=== PATIENT | female | born 1950 | race Caucasian/White ===

== ENCOUNTER 2021-03-15 09:29 | Outpatient (CLI) | payer MEDICARE, SELFPAY ==
--- NOTE | ~2021-03-15 | XR_ITS ---
EXAMINATION: XR knee LT min 4V DATE: 03/15/2021 09:53 INDICATION: Chronic left knee pain TECHNIQUE: Four views of the left knee were obtained. COMPARISON: None. FINDINGS: Alignment is normal. No fracture or osteochondral lesion. There is tricompartmental osteoar thritis, severe in the medial and patellofemoral compartments and moderate at the lateral compartment . No joint effusion/synovitis. Soft tissues are unremarkable. IMPRESSION: 1. Tricompartmental osteoarthritis. Reviewed, dictated and finalized at location A.
== END 2021-03-15 09:30 | disposition home or self-care (01) ==
PROVIDERS: PCP Physician Assistant; Visit Provider Orthopaedic Surgery
DX: M25.562 Pain in left knee (principal)
CPT/HCPCS: 73564

== ENCOUNTER 2021-04-11 13:44 | Emergency (ER) | payer MEDICARE, SELFPAY ==
--- NOTE | ~2021-04-11 | XR_ITS ---
XR knee LT 3V DATE: 04/11/2021 17:19 INDICATION: Fall. Left knee pain. TECHNIQUE: Crosstable lateral, AP and PA views COMPARISON: 03/15/2021 left knee FINDINGS: No fracture or dislocation or joint effusion is evident. There is prominent periarticular spurring at the patellofemoral and medial compartments and to a less er extent the lateral compartment. There is prominent joint space narrowing at the medial compartment . No radiopaque intra-articular loose body or chondrocalcinosis. Diffuse osteopenia. IMPRESSION: Tricompartment osteoarthritis, most pronounced at the medial and patellofemoral compartme nts Osteopenia No fracture or dislocation or joint effusion is evident Reviewed, dictated and finalized at location A. IMPRESSION: Tricompartment osteoarthritis, most pronounced at the medial and pa tellofemoral compartments Osteopenia No fracture or dislocation or joint effusion is evident
--- NOTE | ~2021-04-11 | XR_ITS ---
XR ribs RT 2V w CXR 2V DATE: 04/11/2021 17:18 INDICATION: Fall. Right lower rib pain. Chronic shortness of breath. TECHNIQUE: PA and lateral chest. 3 views of the right ribs. COMPARISON: November 14, 2016 two-view chest FINDINGS: Normal heart size. No hilar or mediastinal enlargement. No pulmonary infiltrate or consolid ation, pleural effusion or pulmonary vascular congestion or pneumothorax. Diffuse osteopenia. There is diffuse idiopathic skeletal hyperostosis of the thoracic spine. No right rib fracture or bone destruction is evident. Status post cholecystectomy. IMPRESSION: Diffuse osteopenia No right rib fracture is detected No active cardiopulmonary disease Reviewed, dictated and finalized at location A.
--- NOTE | ~2021-04-11 | CT_ITS ---
EXAMINATION: CT brain wo con DATE: 04/11/2021 14:03 INDICATION: Fall. Head injury. Right supraorbital hematoma TECHNIQUE: Computed tomography (CT) of the head was performed without intravenous contrast. The mA wa s adjusted according to patient size. Iterative reconstruction technique was employed. Exam dose: 68 1.00 mGy-cm total exam DLP. COMPARISON: None FINDINGS: Right supraorbital hematoma and high posterior right parietal cephalohematoma. No skull fra cture is detected. No intracranial mass lesion or hemorrhage or cerebrovascular accident is evident. No midline shift or mass effect effect. Normal ventricular size. No subdural or epidural hematoma is evident. No intracranial coup or contrecoup injury is identified. The orbits are unremarkable. The paranasal sinuses and mastoid air cells are normally developed and aerated. IMPRESSION: Right supraorbital and high right posterior parietal cephalohematoma; no skull fracture or acute intracranial finding Reviewed, dictated and finalized at Location A. Reviewed, dictated and finalized at location A. IMPRESSION: Right supraorbital and high right posterior parietal cephalohemato ma; no skull fracture or acute intracranial finding
[2021-04-11 13:49] VITALS: BP 181/92; PULSE 55; RESP 18; TEMP 36.8; O2SAT 95
[2021-04-11 14:58] VITALS: BP 182/90; PULSE 56; RESP 18; O2SAT 95
[2021-04-11 15:06] VITALS: BP 140/72; PULSE 54; RESP 18; O2SAT 95
[2021-04-11 16:27] VITALS: BP 158/88; PULSE 60; RESP 18; O2SAT 96
--- NOTE | 2021-04-11 16:48 | ED.FALL ---
HPI - Fall General Chief Complaint: Fall Stated Complaint: fall, head injury Time Seen by Provider: 04/11/21 15:02 Source: patient Mode of arrival: ambulatory Limitations: clinical condition History of Present Illness HPI Narrative: Patient is a 71 year old female who presents after fall. Patient reports drug by dog and fell hitting head on door and then concrete. Patient has hematoma to right eye and tenderness to posterior scalp. Patient reports headache. Denies visual changes. Patient also reports left knee pain and right rib pain. Patient is on anticoagulants. She denies taking otc medication for pain prior to arrival in the ED. She denies LOC and all other complaints at this time. complaint: fall Related Data Home Medications Medication Instructions Recorded Confirmed apixaban [Eliquis] mg 04/11/21 bupropion HCl mg PO 04/11/21 diltiazem HCl [DILT-XR] PO 04/11/21 dronedarone [Multaq] mg 04/11/21 escitalopram oxalate mg 04/11/21 ezetimibe mg 04/11/21 fluticasone furoate-vilanterol INHALATION 04/11/21 04/11/21 [Breo Ellipta] fluticasone propionate INTRANASAL 04/11/21 furosemide 04/11/21 gabapentin 04/11/21 linaclotide [Linzess] mcg 04/11/21 losartan 04/11/21 metoprolol tartrate 04/11/21 montelukast mg 04/11/21 omeprazole 04/11/21 ropinirole mg 04/11/21 rosuvastatin mg 04/11/21 04/11/21 Allergies Allergy/AdvReac Type Severity Reaction Status Date / Time amoxicillin Allergy Unknown Unknown Verified 04/11/21 15:00 Penicillins Allergy Unknown UNSURE Verified 04/11/21 15:00 Review of Systems Review of Systems: Narrative: CONSTITUTIONAL: Denies fever, chills, or sweats. EYES: Denies visual changes, redness, or discharge. ENT: Denies rhinorrhea, congestion, sore throat, or otalgia. CARDIOVASCULAR: Denies chest pain, palpitations, or edema. RESPIRATORY: Denies cough or dyspnea. GASTROINTESTINAL: Denies abdominal pain, nausea, vomiting, or diarrhea. GENITOURINARY: Denies dysuria or hematuria. SKIN: Denies rash or itching. MUSCULOSKELETAL: Reports right rib pain, left knee pain NEUROLOGIC: Reports headache, denies numbness, dizziness, or weakness. PSYCHIATRIC: Denies anxiety or depression. [facility] Past Medical History Medical History Abnormality of heart beat Afib Anxiety Arthritis Asthma Cellulitis Chest tightness Congestion of upper airway Coughing Diarrhea GERD (gastroesophageal reflux disease) High cholesterol History of adverse reaction to anesthesia History of hiatal hernia Hypertension Nausea PURVI (obstructive sleep apnea) SOB (shortness of breath) Weight gain Surgical History Surgical History History of appendectomy History of cholecystectomy History of elbow surgery History of hysterectomy History of right ankle joint replacement Family History Family History (Updated 03/16/21 @ 10:09 by Phyllis Travis, RT(R)) Mother Hypertension Family history of hypothyroidism Family history of diabetes mellitus in first degree relative Family history of atrial fibrillation Father Family history of peptic ulcer Family history of coronary artery disease Other Carcinoma of colon Cerebrovascular accident Diabetes mellitus Heart disease High cholesterol Social History Social History (Updated 03/16/21 @ 10:10 by Phyllis Travis, RT(R)) Smoking status: Never smoker Second hand tobacco smoke exposure: No Alcohol intake: current Alcohol use details: 4 per year Substance use: never Substance use type: does not use Gender identity (if verbalized by the patient): Female Exam Narrative: Exam Narrative: GENERAL: Well-appearing, well-nourished, and in no acute distress. HEAD: Normocephalic, atraumatic. EYES: EOMI. No redness or drainage. Conjunctiva are normal. Patient has hematoma to right orbital area, small abrasion noted, hemato
[2021-04-11 18:00] VITALS: BP 165/77; PULSE 64; RESP 16; O2SAT 96
== END 2021-04-11 18:01 | disposition home or self-care (01) ==
PROVIDERS: Emergency Provider Nurse Practitioner; PCP Physician Assistant
DX: M25.561 Pain in right knee (principal); R07.81 Pleurodynia; I10 Essential (primary) hypertension; I48.91 Unspecified atrial fibrillation; Z79.01 Long term (current) use of anticoagulants; W18.39XA Other fall on same level, initial encounter
CPT/HCPCS: 70450; 71046; 71100; 73562; 99284

== ENCOUNTER 2021-04-26 15:00 | Outpatient (RCR) | payer MEDICARE, SELFPAY ==
--- NOTE | 2021-04-26 15:50 | PTOPEVAL ---
Thank you for referring Robyn Carcamo to [facility].? The patient is scheduled to be seen for therapy? __2__x/week for 10 visits. Please review, sign, date and return this plan of care BRETT. I agree with and certify that the following plan of care is medically necessary. Referring Physician Date Admitting Provider: Attending Provider: Marta Mayer, PA Referring Provider: *PT Outpatient Evaluation Start: 04/26/21 15:02 Freq: Status: Active Protocol: Document 04/26/21 15:02 [facility] (Rec: 04/26/21 15:49 [facility] [email or web address]) Therapy Assessment Status Assessment Status Assessment Status Evaluation Evaluation Information Problem Diagnosis strain of left knee after fall Onset 04/11/21 Subjective Information Pt. reports that she was Query Text:As Reported By Patient/ walking her dog, when the dog Family suddenly tugged the leash causing her to fall into the doorframe. She reports that she went to the ER and returned home that day. Pt. reports she underwent xray which revealed the left knee is bone on bone. She reports that she cannot stand for long periods and first couple steps after sitting are very painful. She reports that her knee pain makes sleep very difficult. She recalls only falling one time in the past 6 months. She states that her goal is to be able to walk with less pain and be able to walk a further distance. Prior Level of Function Activity Level (Last 3 Months) Occupation retired Hand Dominance Right Activity of Daily Living Ability Independent Indoor/Home Mobility Independent Community Mobility Independent Stairs Ability Independent Functional Cognition (Planning, Shopping Independent , Taking Medications) Cooking Yes Cleaning Yes Laundry Yes Shopping Yes Driving Yes Pain Assessment Pain Scale Pain Scale Used Numeric (1 - 10) Self Report Pain Assessment Left Knee(s) Reported Pain Level 9 Pain Description Aching Lowest Pain Intensity 9 Greatest Pain Intensity
--- NOTE | 2021-05-10 11:52 | PTOPEVAL ---
Thank you for referring oRbyn Carcamo to [facility].? The patient is scheduled to be seen for therapy? ____x/week for ___ weeks. Please review, sign, date and return this plan of care BRETT. I agree with and certify that the following plan of care is medically necessary. Referring Physician Date Admitting Provider: Attending Provider: Marta Mayer, PA Referring Provider: *PT Outpatient Evaluation Start: 04/26/21 15:02 Freq: Status: Active Protocol: Document 05/10/21 10:58 [facility] (Rec: 05/10/21 11:51 [facility] [id number]) Therapy Assessment Status Assessment Status Assessment Status Progress Evaluation Information Problem Diagnosis strain of left knee after fall Onset 04/11/21 Subjective Information patient reports she is sore Query Text:As Reported By Patient/ this date. she reports some Family days it is much better, but other days it is still painful . she reports over the weekend it felt as though it was locked up and needed to be popped. she reports no MRI. she reports she did have an injection in February, but she fell on 04/11/21. Pain Assessment Timing of Pain Assessment Timing of Pain Assessment Assessment Pain Scale Pain Scale Used Numeric (1 - 10) Self Report Pain Assessment Left Knee(s) Reported Pain Level 8 Pain Score Pain Score 8: Self Report Interventions Used Interventions Used By Clinicians Activity or ADL's,Education, Electrical Stimulation, Exercise,Heat,Manual Therapy Techniques Lower Extremity Range of Motion Knee Range of Motion Left Knee Flexion Range of Motion - Active 101 Knee Extension Range of Motion - Active -15 Query Text: Lower Extremity Muscle Strength Testing Hip Strength Left Hip Flexion Strength 4 Good Knee Strength Left Knee Flexion Strength 4 Good Knee Extension Strength 3+ Fair + Palpation Assessment Palpation Palpation patient presents with tenderness to palpation of the lateral jt line, medial jt line, postero lateral, postero medial, and direct posterior L knee. Special Tests-Lower Extremity Knee Special Tests Valgus Stress Test Knee at 0 Degrees Positive Left Myra's Positive Left Knee Special Tests Comments positive for severe increased
--- NOTE | 2021-06-02 17:37 | PTOPEVAL ---
Thank you for referring Robyn Carcamo to [facility].? The patient is scheduled to be seen for therapy? ____x/week for ___ weeks. Please review, sign, date and return this plan of care BRETT. I agree with and certify that the following plan of care is medically necessary. Referring Physician Date Admitting Provider: Attending Provider: Marta Mayer, PA Referring Provider: *PT Outpatient Evaluation Start: 04/26/21 15:02 Freq: Status: Active Protocol: Document 05/26/21 11:00 [facility] (Rec: 06/02/21 17:36 [facility] [id number]) Therapy Assessment Status Assessment Status Assessment Status Discharge Evaluation Information Problem Diagnosis strain of left knee after fall Onset 04/11/21 Additional Evaluation Detail LEFS = patient scores worse on the LEFS this date, possible confusiong of scoring on questionaire. 91% functionally declined Subjective Information patient reports she feels Query Text:As Reported By Patient/ alright this date. she Family reports she continues to have pain, tightness, and locking in the L knee. she reports she does foloow up with the MD soon. she reports she is going to ask about having the L knee replaced at this time. Pain Assessment Timing of Pain Assessment Timing of Pain Assessment Assessment Pain Scale Pain Scale Used Numeric (1 - 10) Self Report Pain Assessment Left Knee(s) Reported Pain Level 5 Pain Score Pain Score 5: Self Report Interventions Used Interventions Used By Clinicians Activity or ADL's,Education, Electrical Stimulation, Exercise,Heat,Manual Therapy Techniques Lower Extremity Range of Motion Knee Range of Motion Left Knee Flexion Range of Motion - Active 100 Knee Extension Range of Motion - Active -15 Query Text: Lower Extremity Muscle Strength Testing Hip Strength Left Hip Flexion Strength 4+ Good + Knee Strength Left Knee Flexion Strength 4 Good Knee Extension Strength 4+ Good + Muscle Length Testing Muscle Length Testing Left Hamstring Length 35 Query Text:(90 - 90 Position) Right Hamstring Length 30 Query Text:(90 - 90 Position) Gait Assessment Gait Pattern Assessment Other Gait Observations patient ambulates with antalgia favoring the L LE still with lack of
== END 2021-05-26 08:24 | disposition home or self-care (01) ==
LOC: CHSPT 15:00
PROVIDERS: Visit Provider Physician Assistant
DX: S86.912D Strain of unspecified muscle(s) and tendon(s) at lower leg level, left leg, subsequent encounter (principal)
CPT/HCPCS: 97014; 97110; 97140; 97161; G0283

== ENCOUNTER → 2021-06-07 10:29 | Outpatient (CLI) | payer MEDICARE, SELFPAY ==
--- NOTE | ~2021-06-07 | XR_ITS ---
EXAMINATION: XR sacrum coccyx min 2V INDICATION: Low back pain TECHNIQUE: Three views of the sacrum and coccyx are obtained. COMPARISON: CT, 04/16/2014 FINDINGS: The examination is limited by the patient's body habitus. There appear to be 2 mm of poste rior displacement of the distal sacrum and coccyx with possible old oblique fracture. Severe spondylo sis is noted in the lower lumbar spine. There is mild osteoarthritis of the hips. Phleboliths are not ed in the pelvis. IMPRESSION: 1. Possible oblique fracture of the lower sacrum. Reviewed, dictated and finalized at location A.
--- NOTE | ~2021-06-07 | XR_ITS ---
EXAMINATION: XR lumbar spine 2-3V DATE: 06/07/2021 11:33 INDICATION: Low back pain TECHNIQUE: Anteroposterior and lateral views of the lumbar spine, and cone-down lateral view of the l umbosacral junction were obtained. COMPARISON: CT, 04/16/2014 FINDINGS: There are 3 mm of anterolisthesis of L4 on L5. There is unchanged severe loss of interverte bral disc space height at L5-S1. The vertebral body heights are maintained. There is no fracture. Be cified atherosclerosis is noted. There is moderate facet osteoarthritis of the lower lumbar spine. IMPRESSION: 1. Severe lumbar spondylosis at L5-S1 without findings. Reviewed, dictated and finalized at location A.
== END ==
PROVIDERS: PCP Physician Assistant; Visit Provider Physician Assistant
DX: M47.817 Spondylosis without myelopathy or radiculopathy, lumbosacral region (principal); M54.5 Low back pain
CPT/HCPCS: 72100; 72220

== ENCOUNTER 2021-08-05 07:52 | Outpatient (CLI) | payer MEDICARE, SELFPAY ==
--- NOTE | ~2021-08-05 | MM_ITS ---
EXAMINATION: MM screening rosa maria BI w misbah HISTORY: Screening mammogram TECHNIQUE: Craniocaudal and mediolateral oblique 3-D tomosynthesis images were obtained and synthetic 2-D images were generated. CAD analysis was submitted and interpreted. COMPARISON: 03/18/2019 bilateral screening mammogram BREAST PARENCHYMAL COMPOSITION: The breasts are heterogeneously dense, which may obscure small masses . FINDINGS: There is no evidence of suspicious mass, calcification, or architectural distortion to sugg est malignancy in either breast. There has been no suspicious interval change. IMPRESSION: 1. No mammographic evidence of malignancy. 2. Recommend routine screening mammography in one year. BI-RADS Category 1: Negative Reviewed, dictated and finalized at location A. [facility] RO[facility]
== END 2021-08-05 07:53 | disposition home or self-care (01) ==
LOC: CHSIMG 07:54
PROVIDERS: PCP Physician Assistant; Visit Provider Physician Assistant
DX: Z12.31 Encounter for screening mammogram for malignant neoplasm of breast (principal)
CPT/HCPCS: 77063; 77067

== ENCOUNTER 2022-09-11 09:34 | Emergency (ER) | payer MEDICARE, SELFPAY ==
--- NOTE | ~2022-09-11 | XR_ITS ---
EXAMINATION: XR knee RT min 4V DATE: 09/11/2022 12:03 INDICATION: Right knee pain. Fall. TECHNIQUE: 4 views of right knee were obtained. COMPARISON: None. FINDINGS: There is a total right knee arthroplasty with patellar resurfacing in near-anatomic alignme nt. No fracture. No periprosthetic lucency to suggest loosening or infection. There is a small knee j oint effusion. IMPRESSION: 1. Total right knee arthroplasty in near-anatomic alignment. 2. Small right knee joint effusion. Reviewed, dictated and finalized at location A. [employer]
--- NOTE | ~2022-09-11 | XR_ITS ---
Right Shoulder Technique: AP and scapular Y views were obtained. Clinical History: Pain Findings: No fracture or dislocation is seen. Osseous alignment is anatomic. The glenohumeral and acr omioclavicular joint spaces are preserved. Soft tissues are unremarkable. Impression: Unremarkable right shoulder radiographs. Reviewed, dictated and finalized at location [] ITY MANAGEMENT COORDINATOR Impression: Unremarkable right shoulder radiographs.
--- NOTE | ~2022-09-11 | CT_ITS ---
Non-contrast Head CT History: Head injury, anticoagulated COMPARISON: 04/11/2021 Technique: Axial non-contrast imaging of the brain was performed. Dose reduction technique was used on this scan by utilizing automated exposure control and iterative reconstruction technique. The dose -length product (DLP) was 681.00 mGy-cm. Findings: There is no evidence of intracranial hemorrhage, mass lesion, or acute infarct. Brain par enchyma appears normal. The ventricles and subarachnoid spaces are normal in size. The calvarium ap pears normal. The visualized paranasal sinuses and mastoid air cells are clear. Impression: No significant abnormality seen. Reviewed, dictated and finalized at location [] [employer]IC EQUIPMENT SET UP OPERATOR Impression: No significant abnormality seen.
[2022-09-11 10:12] VITALS: BP 124/51; PULSE 64; RESP 14; TEMP 36.7; O2SAT 95
--- NOTE | 2022-09-11 12:19 | ED.GENADULT ---
HPI - General Adult General Chief complaint: Extremity Injury, Lower Stated complaint: R knee pain s/p fall Time Seen by Provider: 09/11/22 11:33 History of Present Illness HPI narrative: 72-year-old female presenting to the emergency department for evaluation of right knee right shoulder pain. Patient states on Sunday she was attempting to walk up some steps when her shoe got caught causing her to fall forward. Patient did angle her fall did not strike her face on the bricks. Patient states she did strike the right side of her head, did injure her right shoulder and did twist her right knee. Patient does have a history of right knee total knee arthroplasty done by Dr. Cueto at [facility], patient now follows up with Dr. Frey. Patient complains of right knee pain that is worsened with ambulation. Patient states while she did have a fall on Sunday she did not have worsening pain until Sunday. Patient has been taking Tylenol and tramadol for successful pain control. Related Data Home Medications Medication Instructions Recorded Confirmed apixaban 5 mg tablet (Eliquis) mg 04/11/21 07/18/22 bupropion HCl 150 mg 24 hr tablet, mg PO 04/11/21 07/18/22 extended release diltiazem HCl 180 mg PO 04/11/21 07/18/22 capsule,extended release 24 hr, controlled (DILT-XR) dronedarone 400 mg tablet (Multaq) mg 04/11/21 07/18/22 escitalopram oxalate 20 mg tablet mg 04/11/21 07/18/22 ezetimibe 10 mg tablet mg 04/11/21 07/18/22 fluticasone furoate 100 inhalation 04/11/21 07/18/22 mcg-vilanterol 25 mcg/dose inhalation powder (Breo Ellipta) fluticasone propionate 50 intranasal 04/11/21 07/18/22 mcg/actuation nasal spray,suspension furosemide 40 mg tablet 04/11/21 07/18/22 gabapentin 100 mg capsule 04/11/21 07/18/22 linaclotide 72 mcg capsule mcg 04/11/21 07/18/22 (Linzess) losartan 50 mg tablet 04/11/21 07/18/22 metoprolol tartrate 25 mg tablet 04/11/21 07/18/22 montelukast 10 mg tablet mg 04/11/21 07/18/22 omeprazole 40 mg capsule,delayed 04/11/21 07/18/22 release ropinirole 1 mg tablet mg 04/11/21 07/18/22 rosuvastatin 10 mg tablet mg 04/11/21 07/18/22 tramadol 50 mg tablet 50 mg PO Q8H PRN pain 06/16/21 07/18/22 Allergies Allergy/AdvReac Type Severity Reaction Status Date / Time amoxicillin Allergy Unknown Unknown Verified 09/01/22 10:45 Penicillins Allergy Unknown UNSURE Verified 09/01/22 10:45 Review of Systems Review of Systems: CONSTITUTIONAL: Denies fever, chills, or sweats. EYES: Denies visual changes, redness, or discharge. ENT: Denies rhinorrhea, congestion, sore throat, or otalgia. CARDIOVASCULAR: Denies chest pain, palpitations, or edema. RESPIRATORY: Denies cough or dyspnea. GASTROINTESTINAL: Denies abdominal pain, nausea, vomiting, or diarrhea. GENITOURINARY: Denies dysuria or hematuria. SKIN: Denies rash or itching. MUSCULOSKELETAL: See HPI NEUROLOGIC: Denies headache, numbness, or weakness. [facility] Past Medical History Medical History (Updated 09/12/22 @ 00:00 by Background Daemon) Abnormality of heart beat Afib Anxiety Arthritis Asthma BMI greater than 40 Cellulitis Chest tightness Congestion of upper airway Coughing Diarrhea GERD (gastroesophageal reflux disease) High cholesterol History of adverse reaction to anesthesia History of hiatal hernia Hypertension Nausea PURVI (obstructive sleep apnea) SOB (shortness of breath) Weight gain Surgical History Surgical History History of appendectomy History of cholecystectomy History of elbow surgery History of hysterectomy History of right ankle joint replacement Family History Family History Mother Hypertension Family history of hypothyroidism Family history of diabetes mellitus in first degree relative Family history of atrial fibrillation Father Family history of peptic ulcer Family history of coronary artery disease Other
[2022-09-11] MEDS: traMADol HCL (*CRX) 50 MG TABLET PO (12:48)
== END 2022-09-11 14:12 | disposition home or self-care (01) ==
LOC: ANHED 12:51
PROVIDERS: Emergency Provider Emergency Medicine; PCP Physician Assistant
DX: S89.91XA Unspecified injury of right lower leg, initial encounter (principal); S09.90XA Unspecified injury of head, initial encounter; I48.91 Unspecified atrial fibrillation; S49.91XA Unspecified injury of right shoulder and upper arm, initial encounter; I10 Essential (primary) hypertension; J45.909 Unspecified asthma, uncomplicated; E78.00 Pure hypercholesterolemia, unspecified; K21.9 Gastro-esophageal reflux disease without esophagitis; G47.33 Obstructive sleep apnea (adult) (pediatric); M19.90 Unspecified osteoarthritis, unspecified site; F41.9 Anxiety disorder, unspecified; Z79.01 Long term (current) use of anticoagulants; Z96.661 Presence of right artificial ankle joint; Z90.710 Acquired absence of both cervix and uterus; Z96.651 Presence of right artificial knee joint; W10.9XXA Fall (on) (from) unspecified stairs and steps, initial encounter
CPT/HCPCS: 70450; 73030; 73564; 99284; A9270

== ENCOUNTER 2022-11-15 13:08 | Outpatient (RCR) | payer MEDICARE, SELFPAY ==
--- NOTE | 2022-11-15 13:54 | PTOPEVAL1 ---
Assessment and note entered by JT File, PT Evaluation Information Assessment Status Evaluation Diagnosis contusion of R knee, fall Onset 09/11/22 Subjective Information patient reports she had a R TKA back in 2014 which went well. however, on 09/11/22 she fell and twisted the R knee behind her. she reports since her fall she has pain down the inside of the R knee. she reports the knee feels like it is jamming into itself when she is up and walking. she reports she has stiffness behind the knee and calf. she reports she has a brace, but does not wear it as often. she reports she has not had any injections, and no change in medication. she is unable to safely go up and down steps, has pain with transition to standing from sitting, and standing to do the dishes. she reports the fall was due to catching her foot on a step. she reports in general it is getting better since her injury. Reported Pain Level Pain Score 2: Self Report Assessment PT Clinical Summary mrs. willis is a 72 yo woman who presents to skilled PT services for evaluation and treatment of R knee pain post fall. she presents this date with tenderness to the medial jt line of the R knee, weakness of the R knee, antalgic gait favoring the R LE, and positive special tests for medial jt line pathology of the R knee. she would do well to attend skilled PT services to improve her objective/functional deficits and progress towards a return to her prior level functional activity performance and quality of life. Plan of Care Interventions Electrical Stimulation,Gait Training,Hot Pack/Cold Pack,Manual Therapy,Neuro Re-education,Patient/ Caregiver Educati,Therapeutic Activities, Therapeutic Exercise PT Services Indicated Yes Treatment Frequency and 3x weekly for 12 visits Duration These treatments will address the objective and functional deficits as defined above. The patient will be advanced safely and appropriately in order for the patient to progress towards his/her prior level of function. Additional exercises will be introduced and as well as a comprehensive home exercise program upon discharge, if needed, ?to ensure carryover of functional gains achieved in the clinic. This treatment plan has been reviewed and agreement upon by the patient.
--- NOTE | 2022-12-04 13:55 | PTOPPROG ---
Assessment and note entered by Natty Dowling DPT Evaluation Information Assessment Status Progress Diagnosis contusion of R knee, fall Onset 09/11/22 Subjective Information Patient reports her knee has improved with PT. She reports that she still has pain with standing up from sitting for long periods of time. She does report standing for dishes has improved. She reports pain has decreased. Assessment PT Clinical Summary Patient has been seen for 8 visits from 11/15/22-. Patient demonstrates improved R knee ROM and reports overall decrease in pain levels. Patient reports compliance with HEP. She would benefit from continued skilled PT to address remaining impairments and return to PLOF. Plan of Care Interventions Electrical Stimulation,Gait Training,Hot Pack/Cold Pack,Manual Therapy,Neuro Re-education,Patient/ Caregiver Educati,Therapeutic Activities, Therapeutic Exercise PT Services Indicated Yes Treatment Frequency and continue per POC Duration These treatments will address the objective and functional deficits as defined above. The patient will be advanced safely and appropriately in order for the patient to progress towards his/her prior level of function. Additional exercises will be introduced and as well as a comprehensive home exercise program upon discharge, if needed, ?to ensure carryover of functional gains achieved in the clinic. This treatment plan has been reviewed and agreement upon by the patient.
== END 2022-12-12 23:59 | disposition home or self-care (01) ==
LOC: CHSPT 13:08
PROVIDERS: Visit Provider Orthopaedic Surgery
DX: S80.01XD Contusion of right knee, subsequent encounter (principal); Z96.651 Presence of right artificial knee joint
CPT/HCPCS: 97014; 97110; 97112; 97161; 97530; G0283

== ENCOUNTER 2023-06-25 09:48 | Outpatient (RCR) | payer MEDICARE, SELFPAY ==
--- NOTE | 2023-06-25 10:31 | PTOPEVAL1 ---
Assessment and note entered by Dung Mei Evaluation Information Assessment Status Evaluation Diagnosis left TKA Onset 05/17/23 Subjective Information Pt. reports that she underwent left TKA on 05/17/23 . She reports that her knee pain has been mild. She reports that her biggest concern is developed sciatic nerve pain. She describes pain in the area of the left buttock. She reports that her pain is constant. She states that developed pain makes sleep difficult. She describes pain radiating pain down the left leg with long periods of standing. She states that she cannot sit in one place too long or stand too long. She reports that she does still have concern regarding her knee ROM and gait. She reports that her goal is to achieve full ROM and to be able to stand with less pain. Reported Pain Level Pain Score 3: Self Report Assessment PT Clinical Summary Pt. is a 73 year old female who enters the clinic post left TKA. She also presents with symptoms consistent with lumbar radiculopathy. Continued skilled PT is indicated in order to address impaired gait, impaired l.e. strength, impaired endurance, pain and impaired left knee ROM for improved IADL performance. Plan of Care Interventions Electrical Stimulation,Gait Training,Hot Pack/Cold Pack,Manual Therapy,Neuro Re-education,Patient/ Caregiver Educati,Therapeutic Activities, Therapeutic Exercise PT Services Indicated Yes Treatment Frequency and 2x/week x 10 visits Duration These treatments will address the objective and functional deficits as defined above. The patient will be advanced safely and appropriately in order for the patient to progress towards his/her prior level of function. Additional exercises will be introduced and as well as a comprehensive home exercise program upon discharge, if needed, ?to ensure carryover of functional gains achieved in the clinic. This treatment plan has been reviewed and agreement upon by the patient.
--- NOTE | 2023-06-25 10:32 | OPREHPOC ---
Outpatient Therapy Plan of Care This is a Multidisciplinary Plan of Care that may contain components documented by all disciplines (PT, OT, and ST.) PT Problem 1 PT Problem #1 Knowledge Deficit PT Goal 1 Goal Independent with a HEP addressing knee mobility and strength, as well as trunk mobility Target Visit 2 PT Problem 2 PT Problem #2 Impaired Range of Motion PT Goal 1 Goal Pt. will achieve 5-115 degrees left knee AROM Target Visit 10 PT Problem 3 PT Problem #3 Impaired Gait PT Goal 1 Goal Pt. will ambulate with equal right and left stance time over a 6 minute duration and distance of 1000' or greater. Target Visit 10 PT Problem 4 PT Problem #4 Impaired Functional Mobil PT Goal 1 Goal Pt. will be able to stand for duration of 20-30 minutes with 1/10 pain at worst.
== END 2023-07-30 14:49 | disposition home or self-care (01) ==
LOC: CHSPT 09:48
DX: Z47.1 Aftercare following joint replacement surgery (principal); Z96.652 Presence of left artificial knee joint
CPT/HCPCS: 97110; 97161; 97530

== ENCOUNTER 2023-07-13 08:26 | Outpatient (CLI) | payer MEDICARE, SELFPAY ==
--- NOTE | ~2023-07-13 | MM_ITS ---
EXAMINATION: MM screening rosa maria BI w [facility] HISTORY: Screening TECHNIQUE: Craniocaudal and mediolateral oblique 3-D tomosynthesis images were obtained and synthetic 2-D images were generated. CAD analysis was submitted and interpreted. COMPARISON: Comparison to multiple prior studies sequentially, with oldest reviewed study dated 03/18. BREAST PARENCHYMAL COMPOSITION: The breasts are heterogeneously dense, which may obscure small masses . FINDINGS: There are developing asymmetries in the lower central aspect of the left breast, middle thi rd. The right breast is stable without evidence for malignancy. IMPRESSION: 1. Developing asymmetries lower central aspect of the left breast. 2. Additional mammographic views and possible breast ultrasound are recommended. BI-RADS Category 0: Incomplete: Needs additional imaging evaluation. Reviewed, dictated and finalized at location A. IMPRESSION: 1. Developing asymmetries lower central aspect of the left breast. 2. Additional mammographic views and possible breast ultrasound are recommended . BI-RADS Category 0: Incomplete: Needs additional imaging evaluation.
== END 2023-07-13 08:27 | disposition home or self-care (01) ==
LOC: CHSIMG 08:28
PROVIDERS: PCP Physician Assistant; Visit Provider Physician Assistant
DX: Z12.31 Encounter for screening mammogram for malignant neoplasm of breast (principal); R92.8 Other abnormal and inconclusive findings on diagnostic imaging of breast
CPT/HCPCS: 77063; 77067

== ENCOUNTER 2023-08-27 09:47 | Outpatient (RCR) | payer MEDICARE, SELFPAY ==
--- NOTE | 2023-08-27 11:06 | PTOPEVAL1 ---
Assessment and note entered by Natty Dowling DPT Evaluation Information Assessment Status Evaluation Diagnosis low back pain, L LE radiating pain Onset 08/14/23 Subjective Information Patient reports in April she had a L knee replacement and a week later onset of back and posterior L LE pain occured. She reports stretching has helped to relieve pain in the past. She reports pain is worse with sitting, bending for house hold tasks and driving. She also reports her sleep is disturbed due to pain. She reports she did not have back pain prior to knee surgery. She reports knee has felt good since surgery. Patient is retired but completes all house hold tasks independently Reported Pain Level Pain Score 2: Self Report Assessment PT Clinical Summary Patient is a 73 year old female who presents to PT with L sided low back pain with radiating symptoms to the L LE. Patient displays impaired posture, decreased B hip strength and decreased B LE flexibility L > R iimpairing her ability to sleep, sit for driving and complete house hold tasks. She would benefit from skilled PT to address impairments and return to PLOF. Plan of Care Interventions Electrical Stimulation,Gait Training,Manual Therapy,Neuro Re-education,Patient/Caregiver Educati,Therapeutic Activities,Therapeutic Exercise PT Services Indicated Yes Treatment Frequency and 2x weekly for 12 visits Duration These treatments will address the objective and functional deficits as defined above. The patient will be advanced safely and appropriately in order for the patient to progress towards his/her prior level of function. Additional exercises will be introduced and as well as a comprehensive home exercise program upon discharge, if needed, ?to ensure carryover of functional gains achieved in the clinic. This treatment plan has been reviewed and agreement upon by the patient.
--- NOTE | 2023-08-27 11:07 | OPREHPOC ---
Outpatient Therapy Plan of Care This is a Multidisciplinary Plan of Care that may contain components documented by all disciplines (PT, OT, and ST.) PT Problem 1 PT Problem #1 Knowledge Deficit PT Goal 1 Goal Patient to demonstrate independence with HEP Target Visit 6 PT Problem 2 PT Problem #2 Pain PT Goal 1 Goal 1. Patient to report highest pain at 2/10 2. Patient to report ability to sleep with no disturbance due to low back pain Target Visit 12 PT Problem 3 PT Problem #3 Impaired Strength PT Goal 1 Goal Patient to demonstrate 5/5 strength of B hips to return to house hold tasks at PLOF Target Visit 12 PT Problem 4 PT Problem #4 Impaired Range of Motion PT Goal 1 Goal Patient demonstrate ability to reach to floor with no back pain to improve ability to leaf size picker objects doing house hold tasks Target Visit 12 PT Problem 5 PT Problem #5 Impaired Functional Mobil PT Goal 1 Goal 1. Patient to score 20% improvement with Back Index 2. Patient to report ability to vacuum with no report of low back pain 3. Patient to report ability to sit for >30 minutes with no radiating pain. Target Visit 12
--- NOTE | 2023-12-13 08:36 | PCPTNOTE ---
patient discharged due to going to [place] for extended time
== END 2023-09-07 20:00 | disposition home or self-care (01) ==
LOC: CHSPT 09:47
DX: M54.16 Radiculopathy, lumbar region (principal)
CPT/HCPCS: 97014; 97110; 97140; 97161; G0283

== ENCOUNTER 2023-09-07 08:58 | Outpatient (CLI) | payer MEDICARE, SELFPAY ==
--- NOTE | ~2023-09-07 | MMUS_ITS ---
EXAMINATION: MM diagnostic rosa maria LT w misbah, US breast LT complete HISTORY: Follow-up left breast asymmetries TECHNIQUE: Additional 3-D tomosynthesis images of the left breast were performed and synthetic 2-D im ages were generated. CAD analysis was submitted and interpreted. High resolution complete left breast ultrasound was performed. COMPARISON: 07/13/2023 BREAST PARENCHYMAL COMPOSITION: The breasts are heterogeneously dense, which may obscure small masses FINDINGS: MAMMOGRAPHIC FINDINGS: Focal asymmetry centrally in the left breast are less apparent with spot compression and mediolateral views, compatible with superimposed fibroglandular tissue. ULTRASOUND: Complete US of all 4 quadrants of the left breast and retroareolar region was reviewed. Normal hetero geneous echotexture without focal solid or cystic mass. IMPRESSION: 1. No evidence for malignancy in the left breast. 2. . Routine yearly screening mammogram and regular clinical breast examination are recommended. BI-RADS Category 1: Negative Reviewed, dictated and finalized at location A. NTED HOGSHEAD ASSEMBLER IMPRESSION: 1. No evidence for malignancy in the left breast. 2. . Routine yearly screening mammogram and regular clinical breast examination are recommended. BI-RADS Category 1: Negative
== END 2023-09-07 08:59 | disposition home or self-care (01) ==
LOC: CHSIMG 09:02
PROVIDERS: PCP Physician Assistant; Visit Provider Physician Assistant
DX: R92.8 Other abnormal and inconclusive findings on diagnostic imaging of breast (principal)
CPT/HCPCS: 76641; 77061; 77065; G0279

== ENCOUNTER 2024-09-09 07:46 | Outpatient (CLI) | payer MEDICARE, SELFPAY ==
--- NOTE | ~2024-09-09 | MM_ITS ---
EXAMINATION: MM screening rosa maria BI w misbah HISTORY: Screening TECHNIQUE: Craniocaudal and mediolateral oblique 3-D tomosynthesis images were obtained and synthetic 2-D images were generated. CAD analysis was submitted and interpreted. COMPARISON: Comparison to multiple prior studies sequentially, with oldest reviewed study dated 07/25. BREAST PARENCHYMAL COMPOSITION: Dense: The breasts are heterogeneously dense, which may obscure small masses FINDINGS: There are developing asymmetries centrally in the right breast and also centrally in the le ft breast on CC view. No suspicious calcifications or architectural distortion. IMPRESSION: 1. Developing bilateral breast asymmetries. 2. Additional mammographic views and possible breast ultrasound are recommended. BI-RADS Category 0: Incomplete: Needs additional imaging evaluation. Reviewed, dictated and finalized at location B. ER MACHINE OPERATOR IMPRESSION: 1. Developing bilateral breast asymmetries. 2. Additional mammographic views and possible breast ultrasound are recommended . BI-RADS Category 0: Incomplete: Needs additional imaging evaluation.
--- NOTE | ~2024-09-09 | DEXA_ITS ---
Bone Density Report Name: RUBEN MCGURIE Age: 74 Sex: Female Ethnicity: White Date of : 1950 Indication: postmenopausal; screening for osteoporosis; height loss; asthma or emphysema; hysterectomy; Referring Provider: ELENA, MARY Study: Bone densitometry was performed. Exam Date: September 09, 2024 Accession number: [id number] Bone Density: Region BMD T-score Z-score Classification AP Spine(L1-L4) 0.852 -1.8 0.5 Osteopenia Femoral Neck (Left) 0.673 -1.6 0.3 Osteopenia Total Hip (Left) 0.837 -0.9 0.8 Normal Femoral Neck (Right) 0.689 -1.4 0.5 Osteopenia Total Hip (Right) 0.865 -0.6 1.0 Normal Femoral Neck Mean 0.681 -1.5 0.4 Osteopenia Total Hip Mean 0.851 -0.7 0.9 Normal World Health Organization criteria for BMD impression classify patients as: Normal (T-score at or above -1.0), Osteopenia (T-score between -1.0 and -2.5), or Osteoporosis (T-score at or below -2.5). 10-year Fracture Risk(1): Major Osteoporotic Fracture 9.0% Hip Fracture 1.4% Reported Risk Factors: [place] (), Neck BMD=0.673, BMI=45.3 (1) FRAX(R) Version 3.08. Fracture probability calculated for an untreated patient. Fracture probability may be lower if the patient has received treatment. Clinical Information Provided by Patient: Has used the following medications: Vitamin D Has the following medical conditions: Asthma or Emphysema, Hysterectomy Patient maximum height was 65 Menopause Age: 31 No regular weight bearing exercise Does not regularly consume dairy products Drinks caffeinated beverages Onset of menses at age 15 Number of children 1 Impression: The patient has low bone mass, based on the Total Spine T-score. Discussion: BONE DENSITY IS LOW AT ONE OR MORE SKELETAL SITES. This patient's lowest T-score is low at one or more skeletal sites. It meets the World Health Organization's (WHO) criteria for ?low bone mass? (T-score between -1.0 and -2.5). The patient's 10-year risk of fracture as calculated by FRAX is less than the threshold where pharmacological therapy is recommended by the National Osteoporosis Foundation (NOF). However, all treatment decisions require clinical judgment and consideration of individual patient factors, including patient preferences, comorbidities, previous drug use, risk factors not captured in the FRAX model (e.g., frailty, falls, vitamin D deficiency, increased bone turnover, interval significant decline in bone density) and possible under or overestimation of fracture risk by FRAX. The patient should follow a healthful lifestyle (good nutrition with adequate calcium and vitamin D, and appropriate weight-bearing exercise). Follow-Up: Consider repeating this study in 2 to 3 years to reassess this patient's status, or sooner if there is some new clinical indication. Reported by: STACY on 09/09/2024 10:41:00 AM. Reviewed, dictated and finalized at location A.
== END 2024-09-09 07:47 | disposition home or self-care (01) ==
LOC: CHSIMG 07:49
PROVIDERS: PCP Physician Assistant; Visit Provider Physician Assistant
DX: Z12.31 Encounter for screening mammogram for malignant neoplasm of breast (principal); R92.8 Other abnormal and inconclusive findings on diagnostic imaging of breast; M85.89 Other specified disorders of bone density and structure, multiple sites; Z78.0 Asymptomatic menopausal state; Z13.820 Encounter for screening for osteoporosis
CPT/HCPCS: 77063; 77067; 77080

== ENCOUNTER 2024-09-19 08:53 | Outpatient (CLI) | payer MEDICARE, SELFPAY ==
--- NOTE | ~2024-09-19 | MM_ITS ---
EXAMINATION: MM diagnostic rosa maria BI w misbah HISTORY: Developing asymmetries described on the previous the bilateral screening mammography dated 1 11/10/2023 TECHNIQUE: Additional 3-D tomosynthesis images of the bilateral breasts were performed and synthetic 2-D images were generated. CAD analysis was submitted and interpreted. COMPARISON: 09/09/2024 and dating back to 08/05/2021 BREAST PARENCHYMAL COMPOSITION:Dense: The breasts are heterogeneously dense, which may obscure small masses. FINDINGS: MAMMOGRAPHIC FINDINGS: Developing asymmetries described on previous screening mammography are not as prominent on today's st udy for which no further evaluation is suggested. ULTRASOUND: No ultrasound was performed. IMPRESSION: Developing asymmetries not as prominent on today's study for which no further evaluation is suggested. BI-RADS Category 2: Benign findings. Reviewed, dictated and finalized at location A. KMAKER APPRENTICE
== END 2024-09-19 08:54 | disposition home or self-care (01) ==
PROVIDERS: PCP Physician Assistant; Visit Provider Physician Assistant
DX: R92.8 Other abnormal and inconclusive findings on diagnostic imaging of breast (principal)
CPT/HCPCS: 77062; 77066; G0279

== ENCOUNTER 2025-04-03 07:56 | Outpatient (NON) | payer MEDICARE, SELFPAY ==
--- OUTSIDE RECORDS SUMMARY | 2025-04-03 08:05 | XMS_ITS | Clinical Summary ---
Author Organization [facility] Address [facility] [place] [address] Care Team Providers Care Firmware Developer Name Role Phone Cirilo Juarez MD Primary Care Provider Allergies Active Allergy Reactions Criticality Noted Date Comments Penicillins Itching,Rash Medium 2025 Medications albuterol (PROVENTIL) (2.5 MG/3ML) 0.083% nebulizer solution Inhale 3 mLs (2.5 mg total) into the lungs. 09/26/2024 Active ELIQUIS 5 MG tablet Take 1 tablet (5 mg total) by mouth 2 (two) times daily. 01/26/2025 Active azelastine (ASTELIN) 0.1 % nasal spray 1 spray by Nasal route. Active benzocaine-ment hol (CHLORASEPTIC) 6-10 MG Lozenge Take 1 lozenge by mouth. 03/16/2025 Active buPROPion XL (WELLBUTRIN XL) 300 MG 24 hr tablet Take 1 tablet (300 mg total) by mouth daily. 01/24/2025 Active cetirizine (ZYRTEC) 10 MG tablet Take 1 tablet (10 mg total) by mouth daily. Active cyclobenzaprine (FLEXERIL) 10 MG tablet Take 1 tablet (10 mg total) by mouth. 03/16/2025 04/15/20 Active DAPTOmycin (CUBICIN) Inject 12 mLs (600 mg total) into the vein daily. 03/14/2025 Active dilTIAZem ER 180 MG 24 hr capsule Take 1 capsule (180 mg total) by mouth 2 (two) times daily. 05/21/2024 Active MULTAQ 400 MG tablet Take 1 tablet (400 mg total) by mouth 2 (two) times daily. 02/06/2025 Active vitamin D2, ergocalciferol, (DRISDOL) 1.25 mg capsule Take 1 capsule (1.25 mg total) by mouth once a week. 01/06/2025 Active escitalopram (LEXAPRO) 20 MG tablet Take 1 tablet (20 mg total) by mouth daily. 03/17/2025 Active ezetimibe (ZETIA) 10 MG tablet Take 1 tablet (10 mg total) by mouth daily. 12/04/2024 Active fluticasone furoate-vilante rol (BREO ELLIPTA) 100-25 MCG/ACT inhaler daily. Acti ve fluticasone propionate (FLONASE) 50 MCG/ACT nasal spray 1 spray by Nasal route daily. 07/24/2024 Active TRELEGY ELLIPTA 200-62.5-25 MCG/ACT AEROSOL POWDER, BREATH ACTIVATED Inhale 1 puff into the lungs daily. Active furosemide (LASIX) 20 MG tablet Take 1 tablet (20 mg total) by mouth 2 (two) times daily. 05/15/2024 Active gabapentin (NEURONTIN) 100 MG capsule TAKE 1 CAPSULE BY MOUTH IN THE MORNING AND 3 CAPSULES BY MOUTH AT BEDTIME 01/31/2025 Active heparin lock flush 10 UNIT/ML injection 2-5 mLs (20-50 Units total) by Other route. 03/13/2025 Active HYDROcodone-shahnaz taminophen (NORCO) 5-325 MG tablet TAKE 1 TABLET EVERY 4-6 HOURS NEEDED 07/08/2024 Active ipratropium (ATROVENT) 0.06 % nasal spray every 8 (eight) hours. 05/21/2024 Active LINZESS 72 MCG capsule Take 1 capsule (72 mcg total) by mouth daily. 01/20/2025 Active metoprolol tartrate (LOPRESSOR) 25 MG tablet Take 1 tablet (25 mg total) by mouth 2 (two) times daily. 07/21/2024 Active montelukast (SINGULAIR) 10 MG tablet take 1 tablet by mouth every day for 90 days Active ZEPBOUND 5 MG/0.5ML injection Inject 5 mg into the skin once a week. 02/06/2025 Active senna-docusate (SENOKOT-S) 8.6-50 MG tablet Take 2 tablets by mouth 2 (two) times daily. 03/16/2025 Active rosuvastatin (CRESTOR) 10 MG tablet daily. Active rOPINIRole (REQUIP) 1 MG tablet Take 2 tablets (2 mg total) by mouth. 02/09/2025 Active omeprazole (PRILOSEC) 10 MG capsule daily. Active Active Problems Problem Noted Date Diagnosed Date Staphylococcal arthritis of right knee ([facility] HHS/HCC) 03/28/2025 PAF (paroxysmal atrial fibrillation) ([facility] HH S/HCC) 03/28/2025 Gastroesophageal reflux disease without esophagi tis 03/28/2025 Encounters Date Type Department Care Team Description 03/31/2025 3:26 PM CDT - 03/31/2025 11:59 PM CDT Hospital Encounter [facility] Count includes the [facility] [place] [address] Alysia Machado MD Discharge Disposition: Home or Self Care (Routine Discharge) 03/31/[address] [facility] [place] [address] Alysia Machado MD 03/31/2025 Orders Only [facility] [address] [place], [place] [address] [address] Alysia Machado MD 03/25/2025 9:25 AM CDT - 03/25/2025 11:59 PM CDT Hospital Encounter [place] [address] Cirilo Juarez MD Discharge Disposition: Home or Self Care (Routine Discharge) 03/25/2025 Results Follow-Up [facility] [id number] [place] [address] Cirilo Juarez MD CK (CPK), CBC W/DIFF AUTOMATED, COMPREHENSIVE METABOLIC PANEL 03/25/2025 Orders Only [facility] [address] [place] [address] Cirilo Juarez MD 2025 3:40 PM CDT Snf [facility] Family & Internal Medicine [facility] [address] [place] [address] Cirilo Juarez MD Snf ([facility] ) 03/16/[address] 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 instructor (Swing bed referral to EVAN/CECILIA from [facility]/) from Last 3 Months Immunizations Immunization Administration Dates Next Due Arexvy Respiratory Syncytial Virus (RSV, adjuvanted) 0.5 mL, PF 07/29/2023 Fluzone High Dose (IIV, triv alent, 0.5mL) 06/25/2024,07/08/2018 Fluzone High Dose - >Age 65 (Prefilled Syringe) 07/13/2023,06/23/2021,07/16/2020 Influenza (Generic) 07/10/2022,,06/26/2019,2017,08/08/2017,07/25/2017,07/08/2016,1 09/29/2012,07/05/2012 PFIZER COVID-19 (ORIGINAL FORMULATION, PURPLE CAP) mRNA, LNP-S, PF, 30 MCG/0.3 ML DOSE 07/13/2023,07/10/2022 Pneumococcal (Pneumovax 23) 05/19/2014 Pneumococcal (Prevnar 13) 02/14/2019,08/07/2016 Shingrix 04/20/2020,09/10/2019 Tdap (Generic) 12/09/2018 Social History Tobacco Use Types Packs/Day Years Used Date Smoking Tobacco: Unknown Tobacco Cessation:Counseling Given: No Alcohol Use Standard Drinks/Week Comments Not Currently 0 (1 standard drink = 0.6 oz pur e alcohol) Comments No Sex and Gender Information Value Date Recorded Sex Assigned at Female 03/23/2025 3:19 PM CDT Legal Sex Female 2:00 PM CDT Gender Identity Not on file Sexual Orientation Not on file Last Filed Vital Signs Vital Sign Reading Time Taken Comments Blood Pressure 124/62 2025 7:18 AM CDT Pulse 72 2025 7:18 AM CDT Temperature 36.4 C (97.5 F) 2025 7:18 AM CDT Respiratory Rate 18 2025 7:18 AM CDT Oxygen Saturation 97% 2025 7:18 AM CDT Inhaled Oxygen Concentration - - Weight 73.9 kg (163 lb) 2025 7:18 AM CDT Height - - Body Mass Index - - Plan of Treatment Health Maintenance Due Date Last Done Comments Colorectal Cancer Screening Colonoscopy (10 Years) 1950 Hepatitis C 1970 Annual Medicare Wellness Visit 2017 Pneumococcal Vaccine: 50+ Years (3 of 3 - PCV20 or PCV21) 02/15/2024 02/14/2019, 08/07/2016, 05/19/2014 PHQ-2 (Physician Alutiiq) 09/24/2024 COVID-19 Vaccine ( season) 2024 06/26/2024, 07/13/2023, 07/13/2023, Additional history exists Mammogram Screening 09/19/2026 09/19/2024, 09/09/2024, 09/07/2023, Additional history exists DTaP, Tdap and Td Vaccines (2 - Td or Tdap) 12/09/2028 12/09/2018 Zoster Vaccines Completed 04/20/2020, 09/10/2019 RSV Immunization or 60+ Years Completed 07/29/2023 Dexa Scan (General) Completed 09/11/2024, 4 Meningococcal B Vaccine Aged Out No l onger eligible based on patient's age to complete this topic Meningococcal Vaccine Aged Out No omar eliezer eligible based on patient's age to complete this topic RSV Immunizations Under 20 Months Aged Out No longer eligible based on patient's age to complete this topic Procedures Procedure Name Priority Date/Time Associated Diagnosis Comments C-REACTIVE PROTEIN Routine 03/31/2025 2: 35 PM CDT Infection associated with internal right knee prosthesis SED RATE, ERYTHROCYTE (ESR) Routine 03/31/2025 2:35 PM CDT Infection associated with internal right knee prosthesis CBC W/DIFF AUTOMATED Routine 03/31/2025 2:35 PM CDT Infection associated with internal right knee prosthesis COMPREHENSIVE METABOLIC PANEL Routine 03/31/2025 2:35 PM CDT Infection associated with internal right knee prosthesis CK (CPK) Routine 03/31/2025 2:35 PM CDT Infection associated with internal right knee prosthesis COMPREHENSIVE METABOLIC PANEL Routine 03/25/2025 7:08 AM CDT Prosthetic joint infection, subsequent encounter CBC W/DIFF AUTOMATED Routine 03/25/2025 7:08 AM CDT Prosthetic joint infection, subsequent encounter CK (CPK) Routine 03/25/2025 7:08 AM CDT Prosthetic joint infection, subsequent encounter from Last 3 Months Results * (ABNORMAL) SED RATE, ERYTHROCYTE (ESR) (03/31/2025 2:35 PM CDT) ESR 44(H) 0 - 20 MM/HR 03/31/2025 4:05 PM CDT [facility] 03/31/2025 2:35 PM CDT [facility] Marjorie VICTOR LABORATORY F inal Result [facility] [address] [place] [address], * (ABNORMAL) COMPREHENSIVE METABOLIC PANEL (03/31/2025 2:35 PM CDT) Only the most recent of2 resultswithin the time period is included. SODIUM S/P/B 142 136 - 145 MMOL/L 03/31/2025 4:10 PM CDT [facility] POTASSIUM S/P/B 3.4(L) 3.5 - 5.1 MMOL/L 03/31/2025 4:10 PM CDT [facility] CHLORIDE S/P/B 104 98 - 107 MMOL/L 03/31/2025 4:10 PM CDT [facility] CO2 28.2 21.0 - 32.0 MMOL/L 03/31/2025 4:10 PM CDT [facility] GLUCOSE 93 70 - 99 MG/DL 03/31/2025 4:10 PM [facility] Comment: FASTING GLUCOSE 100 TO 125 MG/DL IS CONSISTENT WITH IMPAIRED FASTING GLUCOSE. FASTING GLUCOSE >125 MG/DL IS CONSISTENT WITH DIABETES. RANDOM GLUCOSE >200 MG/DL WITH HYPERGLYCEMIC SYMPTOMS IS CONSISTENT WITH DIABETES. PER ADA GUIDELINES BUN 15 6 - 24 MG/DL 03/31/2025 4:10 PM T [facility] CREATININE S/P/B 1.00 0.55 - 1.02 MG/DL 03/31/2025 4:10 PM T [facility] CALCIUM S/P/B 8.8 8.4 - 10.5 MG/DL 03/31/2025 4:10 PM [facility] BILIRUBIN TOTAL S/P/B 0.3 0.2 - 1.0 MG/DL 03/31/2025 4:10 PM T [facility] Comment: THIS ASSAY IS NOT RECOMMENDED FOR PATIENTS UNDERGOING TREATMENT WITH ELTROMBOPAG DUE TO THE POTENTIAL FOR FALSELY ELEVATED RESULTS. ALKALINE PHOSPHATASE S/P/B 133 55 - 142 U/L 03/31/2025 4:10 PM T [facility] AST 47(H) 15 - 37 U/L 03/31/2025 4:10 PM [facility] ALT 35 14 - 59 U/L 03/31/2025 4:10 PM [facility] TOTAL PROTEIN S/P/B 7.3 6.4 - 8.2 G/DL 03/31/2025 4:10 PM [facility] ALBUMIN S/P/B 3.2(L) 3.4 - 5.0 G/DL 03/31/2025 4:10 PM [facility] ANION GAP 9.8 5.0 - 15.0 MMOL/L 03/31/2025 4:10 PM [facility] OSMOLALITY (CALC) 295 MOSM/KG 025 4:10 PM [facility] Comment:REFERENCE RANGE NOT ESTABLISHED GFR ESTIMATE 59(L) >89 ML/MIN/1. 73 M2 03/31/2025 4:10 PM CDT [facility] GFR NOTES GFR REFERENCE S: 03/31/2025 4:10 PM CDT [facility] Comment: THE ESTIMATED GFR IS CALCULATED USING THE 2020 CKD-EPI EQUATION. THE FOLLOWING CATEGORIES FOR GRADING RENAL FUNCTION ARE RECOMMENDED BY THE INTERNATIONAL SOCIETY OF NEPHROLOGY (KDIGO 2012 CLINICAL PRACTICE GUIDELINE). G1,NORMAL OR HIGH: >89 ml/min/1.73 m2 G2,MILDLY DECREASED: 60-89 ml/min/1.73 m2 G3A,MILDLY TO MODERATELY DECREASED: 45-59 ml/min/1.73 m2 G3B,MODERATELY TO SEVERELY DECREASED: 30-44 ml/min/1.73 m2 G4,SEVERELY DECREASED: 15-29 ml/min/1.73 m2 G5,KIDNEY FAILURE: <15 ml/min/1.73 m2 03/31/2025 2:35 PM CDT Alysia Amador MD LABORATORY F inal Result [facility] Count includes the [facility] [place] [address], * (ABNORMAL) C-REACTIVE PROTEIN (03/31/2025 2:35 PM CDT) C-REACTIVE PROTEIN 0.64(H) <0.30 mg/dL 03/31/2025 5:01 PM CDT [facility] 03/31/2025 2:35 PM CDT [facility] F inal Result [facility] [address] [place] [address], * (ABNORMAL) CBC W/DIFF AUTOMATED (03/31/2025 2:35 PM CDT) Only the most recent of2 resultswithin the time period is included. WBC 8.63 4.00 - 10.80 x10'3/uL 03/31/2025 3:55 PM CDT [facility] RBC 3.25(L) 4.10 - 5.40 x10'6/uL 03/31/2025 3:55 PM CDT [facility] HGB 8.6(L) 12.0 - 16.0 G/DL 03/31/2025 3:55 PM CDT [facility] HCT 27.7(L) 36.0 - 47.0 % 03/31/2025 3:55 PM CDT [facility] MCV 85.2 78.0 - 100.0 FL 03/31/2025 3:55 PM CDT [facility] MCH 26.5(L) 27.0 - 31.0 PG 03/31/2025 3:55 PM CDT [facility] MCHC 31.0(L) 33.0 - 36.0 G/DL 03/31/2025 3:55 PM CDT [facility] RDW 16.5(H) 11.5 - 14.5 % 03/31/2025 3:55 PM CDT [facility] PLT 367(H) 150 - 350 x10'3/uL 03/31/2025 3:55 PM CDT [facility] MPV 9.6 7.4 - 10.4 FL 03/31/2025 3:55 PM CDT [facility] CBC COMMENT NORMAL REFERENCE RANGE NOT ESTABLISHED FOR THE PROPORTIONAL LEUKOCYTE DIFFERENTIAL. 03/31/2025 3:55 PM CDT [facility] NEUTROPHILS % 59.3 % 03/31/2025 3:55 PM CDT [facility] LYMPHOCYTES % 23.6 % 03/31/2025 3:55 PM CDT [facility] MONOCYTES % 11.0 % 03/31/2025 3:55 PM CDT [facility] EOSINOPHILS % 4.3 % 03/31/2025 3:55 PM CDT [facility] BASOPHILS % 1.0 % 03/31/2025 3:55 PM CDT [facility] IMMATURE GRANS % 0.8 % 03/31/20 3:55 PM CDT [facility] NRBC % 0.0 % 03/31/2025 3:55 PM CDT [facility] ABS. NEUTROPHILS 5.11 1.60 - 8.30 x10'3/uL 03/31/2025 3:55 PM CDT [facility] ABS. LYMPHOCYTES 2.04 0.80 - 4.70 x10'3/uL 03/31/2025 3:55 PM CDT [facility] ABS. MONOCYTES 0.95 0.00 - 1.50 x10'3/uL 03/31/2025 3:55 PM CDT [facility] ABS. EOSINOPHILS 0.37 0.00 - 0.40 x10'3/uL 03/31/2025 3:55 PM CDT [facility] ABS. BASOPHILS 0.09 0.00 - 0.20 x10'3/uL 03/31/2025 3:55 PM CDT [facility] ABS. IMMATURE GRANULOCYTES 0.07(H) 0.00 - 0.03 x10'3/uL 03/31/2025 3:55 PM CDT [facility] ABS. NUCLEATED RBC'S 0.00 0.00 - 0.01 x10'3/uL 03/31/2025 3:55 PM CDT [facility] 03/31/2025 2:35 PM CDT [facility] Marjorie [facility] F inal Result [facility] [address] [place] [address], * (ABNORMAL) CK (CPK) (03/31/2025 2:35 PM CDT) Only the most recent of2 resultswithin the time period is included. CPK 576(H) 26 - 192 U/L 03/31/2025 4:10 PM CDT [facility] 03/31/2025 2:35 PM CDT Alysia Amador MD LABORATORY F inal Result [facility] [address] [place] [address], from Last 3 Months Insurance MEDICARE [employer] [facility] Care Teams Firmware Developer Relationship Specialty [place] [address] [place] [address] PCP - General FAMILY PRACTICE 03/23/25
--- OUTSIDE RECORDS SUMMARY | 2025-04-03 08:05 | XMS_ITS | Encounter Summary ---
Author Organization [facility] Address [facility] [place] [address] Care Team Providers Care Analytical Laboratory Technician Name Role Phone Cirilo Juarez MD Primary Care Provider [phone]- [phone] Encounter Details Date Type Department Care Team (Latest Contact Info) Description 03/25/2025 Results Follow-Up [facility] [address] [place] [address] [place] [address] [place] [address] CK (CPK), CBC W/DIFF AUTOMATED, COMPREHENSIVE METABOLIC PANEL Social History Tobacco Use Types Packs/Day Years Used Date Smoking Tobacco: Unknown Alcohol Use Standard Drinks/Week Comments Not Currently 0 (1 standard drink = 0.6 oz pur e alcohol) Comments No Sex and Gender Information Value Date Recorded Sex Assigned at Female 03/23/2025 3:19 PM CDT Legal Sex Female 2:00 PM CDT Gender Identity Not on file Sexual Orientation Not on file documented as of this encounter Progress Notes * Kelly Meza RN - 03/25/2025 11:33 AM CDT Pt at [facility]. Results faxed there. * Cirilo Juarez MD - 03/25/2025 10:19 AM CDT H/H is low as is renal function with normal electrolytes recommend repeat H/H, bmp in one week documented in this encounter Plan of Treatment Not on file documented as of this encounter Visit Diagnoses Not on filedocumented in this encounter Care Teams Analytical Laboratory Technician Relationship Specialty [place] [address] [place] [address] PCP - General FAMILY PRACTICE 03/23/25 documented as of this encounter
--- OUTSIDE RECORDS SUMMARY | 2025-04-03 08:06 | XMS_ITS | Patient Health Record ---
Author Organization Count Includes [facility] [employer] [place] ([address]) Address [address] [place] [address] Care Team Providers Care Band Saw Operator Name Role Phone Marta Mayer Primary Care Provider Unavailab Rachana Cummings Unavailable [phone] Hipolito Aguilar MD Unavailable Unavailable Allergies Allergen (clinical drug ingredient) Drug/Non Drug Allergy documented on EMR Reaction Allergy Type Onset Date Status amoxicillin Amoxicillin rash Drug Allergy Act vivi Penicillin rash Drug Allergy Active Results Component Value Reference Range Notes Spirometry Reviewed date: Interpretation:Normal Performing Lab: Notes/Report: Normal SpiroPreBronchodilator_FVC 2.4 SpiroPostBronchodilator_FEF25_75 0 SpiroPreBronchodilator_FEF25_75 3.6 SpiroPreBronchodilator_FEV1 2.18 SpiroPrecentPredictionPost_FEF25_75 0 SpiroPrecentPredictionPost_FEV1 0 SpiroPrecentPredictionPost_FEV1_OVER_FVC 0 SpiroPrecentPredictionPost_FVC 0 SpiroPrecentPredictionPre_FEF25_75 188.5 SpiroPrecentPredictionPre_FEV1 97.8 SpiroPrecentPredictionPre_FEV1_OVER_FVC 121 SpiroPrecentPredictionPre_FVC 81.1 SpiroPredicted_FEF25_75 1.91 SpiroPreBronchodilator_FEV1_OVER_FVC 90.89 SpiroPreBronchodilator_PEF 5.54 SpiroPostBronchodilator_FVC 0 SpiroPostBronchodilator_FEV1 0 SpiroPostBronchodilator_FEV1_OVER_FVC 0 SpiroPostBronchodilator_PEF 0 SpiroPredicted_FVC 2.96 SpiroPredicted_FEV1 2.23 SpiroPredicted_FEV1_OVER_FVC 75.09 SpiroPredicted_PEF 5.55 Spirometry Reviewed date: Interpretation:Abnormal Performing Lab: Notes/Report: Abnormal SpiroPreBronchodilator_FVC 2.22 SpiroPostBronchodilator_FEF25_75 0 SpiroPreBronchodilator_FEF25_75 2.48 SpiroPreBronchodilator_FEV1 1.85 SpiroPrecentPredictionPost_FEF25_75 0 SpiroPrecentPredictionPost_FEV1 0 SpiroPrecentPredictionPost_FEV1_OVER_FVC 0 SpiroPrecentPredictionPost_FVC 0 SpiroPrecentPredictionPre_FEF25_75 129.8 SpiroPrecentPredictionPre_FEV1 83 SpiroPrecentPredictionPre_FEV1_OVER_FVC 111.3 SpiroPrecentPredictionPre_FVC 75 SpiroPredicted_FEF25_75 1.91 SpiroPreBronchodilator_FEV1_OVER_FVC 83.58 SpiroPreBronchodilator_PEF 4.44 SpiroPostBronchodilator_FVC 0 SpiroPostBronchodilator_FEV1 0 SpiroPostBronchodilator_FEV1_OVER_FVC 0 SpiroPostBronchodilator_PEF 0 SpiroPredicted_FVC 2.96 SpiroPredicted_FEV1 2.23 SpiroPredicted_FEV1_OVER_FVC 75.09 SpiroPredicted_PEF 5.55 Reason For Referral No Information Medications Medication SIG (Take, Route, Frequency, Duration) Notes Start Date End Date Status Montelukast Sodium 10 MG 1 tablet Orally Once a day; Duration: 90 days Active SINGULAIR 10 mg 1 tab(s) orally once a day Active ASTELIN 137 MCG/INH 2 SPRAY(S), EACH NOSTRIL INTRANASALLY BID; Duration: 90 DAYS *Please review for potential replacement for e-prescription and drug interaction check* Not-Taking Ipratropium Dewitt 0.06 % 2 sprays in each nostril Nasally Three times a day; Duration: 30 days Active rOPINIRole HCl 2 MG 1 tablet 1 to 3 hours before bedtime Orally Once a day Active ZyrTEC Allergy 10 MG 1 tab(s) orally once a day Not-Taking Trelegy Ellipta 200-62.5-25 MCG/ACT 1 puff Inhalation Once a day; Duration: 90 days Active Azithromycin 250 MG 2 tablets once a day for 1 day, 1 tablet once a day for 4 days Orally daily; Duration: 5 days Active Eliquis 5 MG as directed Orally Active PROAIR HFA 90 mcg/inh 2 puff(s) inhaled 4 times a day Active Triamcinolone Acetonide 0.1 % APPLY TOPICALLY 3 TIMES DAILY FOR 90 DAYS; Duration: 90 Active ZYRTEC 10 mg 1 tab(s) orally once a day Active Metoprolol Succinate 25 MG 1 capsule Orally Once a day Active Multaq 400 MG 1 tablet with meals Orally Twice a day Active Omeprazole 10 MG 1 capsule 30 minutes before morning meal Orally Once a day Active Rosuvastatin Calcium 10 MG 1 tablet Orally Once a day Active Breo Ellipta 100 MCG-25 MCG/INH 1 PUFF(S) INHALED ONCE A DAY *Please review and pick correct strength-formulat ion from [employer] options. If intended option is not shown, discontinue and re-order from Quick Search* Not-Taking CLOBETASOL (EQV-TEMOVATE E) 0.05% 1 FOUZIA APPLIED TOPICALLY 2 TIMES A DAY; Duration: 14 DAY(S) *Please review for potential replacement for e-prescription and drug interaction check* Not-Taking NASAL WASHES N/A DIRECTED INTRANASALLY NEEDED; Duration: 30 *Please review for potential replacement for e-prescription and drug interaction check* Not-Taking Flonase Allergy Relief 50 MCG/ACT 1 spray(s) intranasally once a day; Duration: 90 days Not-Taking Singulair 10 MG 1 tab(s) orally once a day Not-Taking Zetia 10 MG 1 tablet Orally Once a day Active Wellbutrin XL 150 MG 1 tablet in the morning Orally Once a day Active Lexapro 5 MG 1 tablet Orally Once a day Active Immunizations Vaccine Route Administration Date Status Comme nts Fluzone Quadrivalent Unknown 07/25/2017 Administered Influenza Unknown 07/09/2018 Administered NOC Pneumovax 23 Unknown 01/02/2018 Refused Social History Tobacco Use: Social History Observation Description Date Details (start date - stop date) Never Smoker NA - NA Smoking Smart Form: Question Answer Notes Are you a: never smoker Tobacco Control (Standard) Question Answer Notes Tobacco use: Nonsmoker Problems Problem Type SNOMED Code ICD Code Onset Dates Problem Status W/U Status Risk Notes Problem Allergy to penicillin (52424802) Allergy status to penicillin (Z88.0) Active confirmed Problem Eruption of skin (577234537) Rash and other nonspecific skin eruption (R21) Active confirmed Problem Chronic allergic conjunctivitis (16957547) Other chronic allergic conjunctivitis (H10.45) Active confirmed Problem Allergic rhinitis caused by pollen (disorder) (95977821) Allergic rhinitis due to pollen (J30.1) Active confirmed Problem Allergic rhinitis (05992792) Other allergic rhinitis (J30.89) Active confirmed Problem Chronic rhinitis (90125900) Chronic rhinitis (J31.0) Active confirmed Problem Uncomplicated mild persistent asthma (931752141) Mild persistent asthma, uncomplicated (J45.30) Active confirmed Problem Uncomplicated moderate persistent asthma (806642028) Moderate persistent asthma, uncomplicated (J45.40) Active confirmed Problem Uncomplicated severe persistent asthma (886767774) Severe persistent asthma, uncomplicated (J45.50) Active confirmed Problem Allergic rhinitis caused by animal hair and dander (145330249841182) Allergic rhinitis due to animal (cat) (dog) hair and dander (J30.81) Active confirmed Problem Cough (48847342) Cough (R05) Active confirmed Problem Allergy status t o other antibiotic agents (Z88.1) Active confirmed Vital Signs Blood pressure diastolic 78 mm Hg 06/04/2024 Oximetry 96 % 06/04/2024 Height 65 in 06/04/2024 Blood pressure systolic 127 mm Hg 06/04/2024 Weight 256.2 lbs 06/03/2024 BMI 42.63 kg/m2 06/03/2024 Encounters Encounter Location Date Provider Diagnosis [facility] [address] [address] 04/23/2024 Rachana Linder Moderate persistent asthma, uncomplicated J45.40 ; Acute upper respiratory infection, unspecified J06.9 ; Chronic rhinitis J31.0 and Allergy status to other antibiotic agents Z88.1 [facility] [address] [place] [phone] 05/21/2024 Rachana Linder Moderate persistent asthma, uncomplicated J45.40 ; Acute upper respiratory infection, unspecified J06.9 ; Chronic rhinitis J31.0 and Allergy status to other antibiotic agents Z88.1 [facility] [address] [place] [phone] 06/03/2024 Rachana Linder Moderate persistent asthma, uncomplicated J45.40 ; Allergy status to penicillin Z88.0 and Chronic rhinitis J31.0 [facility] [address] [place] [phone] 06/04/2024 Rachana Linder Moderate persistent asthma, uncomplicated J45.40 ; Allergy status to penicillin Z88.0 and Chronic rhinitis J31.0 Assessments Encounter Date Diagnosis (ICD Code) Assessment Notes Treatment Notes Treatment Clinical Notes Section Notes 04/23/2024 Acute upper respiratory infection, unspecified (ICD-10 - J06.9) 04/23/2024 Moderate persistent asthma, uncomplicated (ICD-10 - J45.40) ACT 8 and spirometry shows possible restriction. She is following with Dr. Aguilar and scheduled for PFTs. CT chest negative several years ago. Recommend starting a trial of Trelegy since she prefers Breo but no longer covered by insurance. 05/21/2024 Acute upper respiratory infection, unspecified (ICD-10 - J06.9) Recent URI symptoms and start azithromycin given history of chronic sinusitis. 05/21/2024 Moderate persistent asthma, uncomplicated (ICD-10 - J45.40) ACT 22 and spirometry today is normal. Continue Trelegy and prn albuterol. She is following with Dr. Aguilar and scheduled for PFTs. CT chest negative several years ago. 06/03/2024 Allergy status to penicillin (ICD-10 - Z88.0) Robyn has a history of rash with amoxicillin over 15 years ago. Today we performed skin testing to penicillin reagents (Pre-Pen and Chinyere) in accordance with deck molder's guidelines, and all tests were negative with appropriate control responses. Robyn took metoprolol today and unable to perform drug challenge while on metoprolol. She will hold metoprolol tomorrow am and return for amoxicillin challenge 06/03/2024 Moderate persistent asthma, uncomplicated (ICD-10 - J45.40) Spirometry normal at last check. Continue Trelegy and prn albuterol. She is following with Dr. Aguilar and scheduled for PFTs. CT chest negative several years ago. 06/04/2024 Allergy status to penicillin (ICD-10 - Z88.0) Robyn has a history of rash with amoxicillin over 15 years ago. Yesterday we performed skin testing to penicillin reagents (Pre-Pen and Chinyere) in accordance with deck molder's guidelines, and all tests were negative with appropriate control responses. The patient subsequently received amoxicillin in 2 graded doses (cumulative dose of 500 mg) and tolerated the procedure without signs or symptoms of hypersensitivity reaction after >60 minutes of total observation. Please refer to Procedures section for full details. At this point, the patient is at no greater risk than the general population for an IgE-mediated beta-lactam reaction, thus likely to be to be able to safely receive any beta-lactam antibiotic without risk of acute, IgE-mediated hypersensitivity reaction. Therefore, penicillin allergy should be removed from this patient's medical record and can be used PRN as clinically indicated. Please note that today's testing and successful medication challenge did not rule out the possibility of delayed-type (cell-mediated) hypersensitivity reaction to beta-lactam antibiotics. Follow up with me as scheduled. 06/04/2024 Moderate persistent asthma, uncomplicated (ICD-10 - J45.40) Spirometry normal at last check. Continue Trelegy and prn albuterol. She is following with Dr. Aguilar and scheduled for PFTs. CT chest negative several years ago. 06/04/2024 Chronic rhinitis (ICD-10 - J31.0) Skin testing was negative for aeroallergens at her last visit except for 1 species of mold. We discussed non allergic rhinitis including trigger factors of strong odors and changes in barometric pressure. CT sinus performed by Dr. Aguilar several years ago was normal. Records from Dr. Gonzales shows vocal cord edema caused by chronic cough and hypertrophied turbinates. Continue ipratropium. Sinus rinses encouraged. 06/03/2024 Chronic rhinitis (ICD-10 - J31.0) Skin testing was negative for aeroallergens at her last visit except for 1 species of mold. We discussed non allergic rhinitis including trigger factors of strong odors and changes in barometric pressure. CT sinus performed by Dr. Aguilar several years ago was normal. Records from Dr. Gonzales shows vocal cord edema caused by chronic cough and hypertrophied turbinates. Continue ipratropium. Sinus rinses encouraged. 05/21/2024 Chronic rhinitis (ICD-10 - J31.0) Skin testing today was negative for aeroallergens at her last visit except for 1 species of mold. We discussed non allergic rhinitis including trigger factors of strong odors and changes in barometric pressure. CT sinus performed by Dr. Aguilar several years ago was normal. Records from Dr. Gonzales shows vocal cord edema caused by chronic cough and hypertrophied turbinates. Continue ipratropium. Sinus rinses encouraged. 04/23/2024 Chronic rhinitis (ICD-10 - J31.0) Given the history and symptoms, skin testing was performed to common aeroallergens to determine atopic status. Skin testing today was negative for aeroallergens. We discussed non allergic rhinitis including trigger factors of strong odors and changes in barometric pressure. CT sinus performed by Dr. Aguilar several years ago was normal. Records from Dr. Gonzales shows vocal cord edema caused by chronic cough and hypertrophied turbinates. Start ipratropium. Sinus rinses encouraged. 04/23/2024 Allergy status to other antibiotic agents (ICD-10 - Z88.1) Robyn has a history of rash with amoxicillin. Consider skin testing and challenge in the future 05/21/2024 Allergy status to other antibiotic agents (ICD-10 - Z88.1) Robyn has a history of rash with amoxicillin over 15 years ago. Plan for skin testing and challenge in the future 04/23/2024 Other 05/21/2024 Other 06/03/2024 Other 06/04/2024 Other Plan Of Treatment No Information Insurance Providers Payer Name Payer Address Payer Phone Subscriber Number Group Number Insured Name Patient Relationship to Insured Coverage Start Date Coverage End Date [employer] (Medicare) Attention Claims [address] [place] [address] [phone] [id number] Sanjeev spencer Robyn Self - patient is the insured [employer] [address] [address] [place] [phone] [id number] Sanjeev spencer Robyn Self - patient is the insured Medical (General) History Medical History History ICD Code Essential (primary) hypertension Other hyperlipidemia Moderate persistent asthma, uncomplicate d Allergic rhinitis due to pollen Allergic rhinitis due to animal (cat) (d og) hair and dander Other allergic rhinitis Other chronic allergic conjunctivitis AFIB Surgical History Surgery Date(Month/Year) Rt knee replacement 2014 B/L eye lid repair 2016 neck surgery 2009,2011 hernia surgery 2009 left knee replacement 2022 Hospitalization History Reason Date(Month/Year) Bleeding ulcer 04/2014
[2025-04-03 08:44] LABS: Creatine Kinase 210 U/L (30-135)
== END 2025-04-03 07:57 | disposition home or self-care (01) ==
LOC: CHSLAB 08:03
PROVIDERS: PCP Physician Assistant
DX: T84.53XA Infection and inflammatory reaction due to internal right knee prosthesis, initial encounter (principal)
CPT/HCPCS: 82550

== ENCOUNTER 2025-04-07 08:26 | Outpatient (NON) | payer MEDICARE, SELFPAY ==
[2025-04-07 09:22] LABS: Hematocrit 27.7 % (35.0-42.0); Hemoglobin 8.5 g/dL (11.7-13.8); Immature Granulocyte Percent A 0.3 % (0.0-0.0); Lymphocytes Absolute Auto 1.82 K/mm3 (1.10-4.50); Mean Corpuscular HGB Conc 30.7 g/dL (32-36); Mean Corpuscular Hemoglobin 25.8 pg (27.0-31.0); Mean Corpuscular Volume 84.2 fL (78.0-102.0); Nucleated Red Blood Cells Absolute Auto 0.00 K/mm3 (0.00-0.00); Nucleated Red Blood Cells Perc 0.0 % (0-0.0); Platelet Count Result 302 K/mm3 (150-420); Red Blood Count 3.29 M/mm3 (4.20-5.40); White Blood Count 6.5 K/mm3 (4.8-10.8)
[2025-04-07 09:27] LABS: Alanine Aminotransferase 22 U/L (6-35); Albumin Level 3.6 g/dL (3.5-5.1); Alkaline Phosphatase 140 U/L (38-126); Anion Gap 9 mmol/L (4-12); Aspartate Amino Transferase 33 U/L (14-36); Bilirubin,Total 0.4 mg/dL (0.2-1.3); Blood Urea Nitrogen 12 mg/dL (7-17); Calcium 8.5 mg/dL (8.4-10.2); Carbon Dioxide 26 mmol/L (22-30); Chloride 104 mmol/L (98-107); Creatine Kinase 120 U/L (30-135); Estimated Glomerular Filt Rate > 60; Glucose 119 mg/dL (65-110); Osmolality Calculated 288 mOsm/kg (285-295); Potassium 3.1 mmol/L (3.4-5.0); Sodium 139 mmol/L (137-145); Total Protein 6.9 g/dL (6.3-8.2)
== END 2025-04-07 08:27 | disposition home or self-care (01) ==
LOC: CHSLAB 08:33
DX: T84.53XD Infection and inflammatory reaction due to internal right knee prosthesis, subsequent encounter (principal)
CPT/HCPCS: 36415; 80053; 82550; 85025

== ENCOUNTER 2025-04-14 07:54 | Outpatient (NON) | payer MEDICARE, SELFPAY ==
--- OUTSIDE RECORDS SUMMARY | 2025-04-14 08:05 | XMS_ITS | Encounter Summary ---
Author Organization [employer] Address 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
--- OUTSIDE RECORDS SUMMARY | 2025-04-14 08:05 | XMS_ITS | Encounter Summary ---
Author Organization [employer] Address [address] [place] [address] Care Team Providers Care Home Lending Officer Name Role Phone Mt Cortes MD Primary Care Provider [phone] Encounter Details Date Type Department Care Team (Late st Contact Info) Description 08/23/2002 Outpatient [facility] [address] [place] [address] [address]. 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
--- OUTSIDE RECORDS SUMMARY | 2025-04-14 08:05 | XMS_ITS | Patient Health Record ---
Author Organization [facility] [employer] [place] ([address]) Address [address] [place] [address] Care Team Providers Care Cycle Analyst Name Role Phone Marta Mayer Primary Care Provider Unavailab Rachana Cummings Unavailable [phone] Hipolito Aguilar MD Unavailable Unavailable Allergies Allergen [...] e-prescription and drug interaction check* Not-Taking Ipratropium [place] 0.06 % 2 sprays in each nostril [...] review and pick correct strength-formulat ion from [employer] options. If intended option is not shown, [...] Status Risk Notes Problem Allergy to penicillin (10614355) Allergy status to penicillin (Z88.0) Active confirmed Problem Eruption of skin (858447886) Rash and other nonspecific skin eruption (R21) Active confirmed Problem Chronic allergic conjunctivitis (37675509) Other chronic allergic conjunctivitis (H10.45) Active confirmed Problem Allergic rhinitis caused by pollen (disorder) (35975172) Allergic rhinitis due to pollen (J30.1) Active confirmed Problem Allergic rhinitis (56460131) Other allergic rhinitis (J30.89) Active confirmed Problem Chronic rhinitis (07307678) Chronic rhinitis (J31.0) Active confirmed Problem Uncomplicated mild persistent asthma (804584318) Mild persistent asthma, uncomplicated (J45.30) Active confirmed Problem Uncomplicated moderate persistent asthma (537956292) Moderate persistent asthma, uncomplicated (J45.40) Active confirmed Problem Uncomplicated severe persistent asthma (776922639) Severe persistent asthma, uncomplicated (J45.50) Active confirmed Problem Allergic rhinitis caused by animal hair and dander (728300938473996) Allergic rhinitis due to animal (cat) (dog) hair and dander (J30.81) Active confirmed Problem Cough (38064249) Cough (R05) Active confirmed Problem Allergy status t o other antibiotic agents (Z88.1) Active confirmed Vital Signs Oximetry 96 % 06/04/2024 Blood pressure diastolic 78 mm Hg 06/04/2024 Height 65 in 06/04/2024 Blood pressure systolic 127 mm Hg 06/04/2024 Weight 256.2 lbs 06/03/2024 BMI 42.63 kg/m2 06/03/2024 Encounters Encounter Location Date Provider Diagnosis [facility] [address] [address] 04/23/2024 Rachana Linder Moderate persistent asthma, uncomplicated J45.40 ; Acute upper respiratory infection, unspecified J06.9 ; Chronic rhinitis J31.0 and Allergy status to other antibiotic agents Z88.1 [facility] [address] [place] [address] 05/21/2024 Rachana Linder Moderate persistent asthma, uncomplicated J45.40 ; Acute upper respiratory infection, unspecified J06.9 ; Chronic rhinitis J31.0 and Allergy status to other antibiotic agents Z88.1 [facility] [address] [place] [address] 06/03/2024 Rachana Linder Moderate persistent asthma, uncomplicated J45.40 ; Allergy status to penicillin Z88.0 and Chronic rhinitis J31.0 [facility] [address] [place] [phone] 06/04/2024 Rachana Linder Moderate persistent asthma, uncomplicated [...] reagents (Pre-Pen and Chinyere) in accordance with fresh foods cake decorator's guidelines, and all tests were negative with [...] reagents (Pre-Pen and Chinyere) in accordance with fresh foods cake decorator's guidelines, and all tests were negative with [...] Insured Coverage Start Date Coverage End Date [employer] (Medicare) Attention Claims [address] [place] [address] [id number] Sanjeev spencer Robyn Self - patient is the insured [employer] [address] [address] [place] [phone] [id number] Sanjeev spencer Robyn Self - patient is [...]
--- OUTSIDE RECORDS SUMMARY | 2025-04-14 08:05 | XMS_ITS | Encounter Summary ---
Author Organization [employer] Address [address] [place] [address] Care Team Providers Care Meat And Poultry Inspector Name Role Phone Mt Cortes MD Primary Care Provider [phone] Encounter Details Date Type Department Care Team (Late st Contact Info) Description 10/03/2002 Outpatient [facility] [address] [place] [address] 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
--- OUTSIDE RECORDS SUMMARY | 2025-04-14 08:05 | XMS_ITS | Encounter Summary ---
Author Organization [facility] Address [facility] [place] [address] Care Team Providers Care Commercial Director Name Role Phone Cirilo Juarez MD Primary Care Provider Encounter Details Date Type Department Care Team (Latest Contact Info) Description 03/25/2025 Results Follow-Up [facility] [address] [place] [address] [place] [address] [place] [address] CK (CPK), CBC W/DIFF AUTOMATED, [...] - 03/25/2025 11:33 AM CDT Pt at [facility]. Results faxed there. * Cirilo Juarez MD - 03/25/2025 10:19 AM CDT H/H is low as is renal function with normal electrolytes recommend repeat H/H, bmp in one week documented in this encounter Plan of Treatment Not on file documented as of this encounter Visit Diagnoses Not on filedocumented in this encounter Care Teams Commercial Director Relationship Specialty [place] [address] [place] [address] PCP - General FAMILY PRACTICE 03/23/25 documented as of this encounter
--- OUTSIDE RECORDS SUMMARY | 2025-04-14 08:05 | XMS_ITS | Encounter Summary ---
Author Organization [employer] Address [address] [place] [address] Care Team Providers Care Trash Man Name Role Phone Mt Cortes MD Primary Care Provider [phone] Encounter Details Date Type Department Care Team (Late st Contact Info) Description 08/05/2002 Outpatient [facility] [address] [place] [address] 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
--- OUTSIDE RECORDS SUMMARY | 2025-04-14 08:05 | XMS_ITS | Encounter Summary ---
Author Organization [employer] Address [address] [place] [address] Care Team Providers Care Bellstaff Name Role Phone Mt Cortes MD Primary Care Provider [phone] Encounter Details Date Type Department Care Team (Late st Contact Info) Description 08/28/[address] [facility] [address] [place] [address] 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
--- OUTSIDE RECORDS SUMMARY | 2025-04-14 08:05 | XMS_ITS | Encounter Summary ---
Author Organization [employer] Address [address] [place] [address] Care Team Providers Care Supervisor [employer] Fabrication Name Role Phone Mt Cortes MD Primary Care Provider [phone] Encounter Details Date Type Department Care Team (Latest Contact Info) Description 06/07/1999 Inpatient Historical HIS PATIENT IN A BED Mt Cortes MD [address] [place] [address] Stricture and stenosis of esophagus (Primary Dx) Social History Tobacco Use Types Packs/Day Years Used Date Smoking Tobacco: Never Assessed Comments Unknown Sex and Gender Information Value Date Recorded Sex Assigned at Not on file Legal Sex Female 2:41 AM SKIN THERAPIST Gender Identity Not on file Sexual Orientation Not on file documented as of this encounter Plan of Treatment Not on file documented as of this encounter Visit Diagnoses Diagnosis Stricture and stenosis of esophagus- Primary documented in this encounter Care Teams Supervisor Epoxy Fabrication Relationship Specialty Start Date End Date Mt Cortes MD [address] [place] [address] PCP - General 05/19/03 09/20/17 documented as of this encounter
--- OUTSIDE RECORDS SUMMARY | 2025-04-14 08:06 | XMS_ITS | Encounter Summary ---
Author Organization [employer] Address [address] [place] [address] Care Team Providers Care Securities Clerk Name Role Phone Mt Cortes MD Primary Care Provider [phone] Encounter Details Date Type Department Care Team (Latest Contact Info) Description 06/27/2004 Outpatient [facility] [address] [place] [address] Mt Cortes MD [address] [place] [address] DYSPHAGIA (Primary Dx) Social History Tobacco Use Types Packs/Day Years Used Date Smoking Tobacco: Never Assessed Comments Unknown Sex and Gender Information Value Date Recorded Sex Assigned at Not on file Legal Sex Female 2:41 AM TALENT DEVELOPMENT ANALYST Gender Identity Not on file Sexual Orientation Not on file documented as of this encounter Plan of Treatment Not on file documented as of this encounter Visit Diagnoses Diagnosis Dysphagia- Primary documented in this encounter Care Teams Securities Clerk Relationship Specialty Start Date End Date Mt Cortes MD [address] [place] [address] PCP - General 05/19/03 09/20/17 documented as of this encounter
--- OUTSIDE RECORDS SUMMARY | 2025-04-14 08:06 | XMS_ITS | Encounter Summary ---
Author Organization [facility] Address [address] [place] [address] Care Team Providers Care Operational Intelligence Analyst Name Role Phone Mt Cortes MD Primary Care Provider [phone] Encounter Details Date Type Department Care Team (Latest Contact Info) Description 10/07/2003 Inpatient Historical HIS PATIENT IN A BED Mt Cortes MD [address] [place] [address] CHEST PAIN NEC (Primary Dx) Social History Tobacco Use Types Packs/Day Years Used Date Smoking Tobacco: Never Assessed Comments Unknown Sex and Gender Information Value Date Recorded Sex Assigned at Not on file Legal Sex Female 2:41 AM LEAD NET SOFTWARE DEVELOPER Gender Identity Not on file Sexual Orientation Not on file documented as of this encounter Plan of Treatment Not on file documented as of this encounter Visit Diagnoses Diagnosis Other chest pain- Primary documented in this encounter Care Teams Operational Intelligence Analyst Relationship Specialty Start Date End Date Mt Cortes MD [address] [place] [address] PCP - General 05/19/03 09/20/17 documented as of this encounter
--- OUTSIDE RECORDS SUMMARY | 2025-04-14 08:06 | XMS_ITS | Encounter Summary ---
Author Organization [employer] Address [address] [place] [address] Care Team Providers Care Zipper Measurer Name Role Phone Mt Cortes MD Primary Care Provider [phone] Encounter Details Date Type Department Care Team (Late st Contact Info) Description 10/07/2003 Outpatient Historical [facility] ([facility]) [address] [place] [address] Mt Meyers MD NO ADDRESS ON FILE Social History Tobacco Use Types Packs/Day Years Used Date Smoking Tobacco: Never Assessed Comments Unknown Sex and Gender Information Value Date Recorded Sex Assigned at Not on file Legal Sex Female 2:41 AM GEOTHERMAL OPERATIONS ENGINEER Gender Identity Not on file Sexual Orientation Not on file documented as of this encounter Plan of Treatment Not on file documented as of this encounter Visit Diagnoses Not on filedocumented in this encounter Care Teams Zipper Measurer Relationship Specialty Start Date End Date Mt Cortes MD [address] [facility] [address] [place] [address] PCP - General 05/19/03 09/20/17 documented as of this encounter
--- OUTSIDE RECORDS SUMMARY | 2025-04-14 08:06 | XMS_ITS | Encounter Summary ---
Author Organization [facility] Address [address] [place] [address] Care Team Providers Care Endodontist Name Role Phone Cirilo Juarez MD Primary Care Provider [phone] Encounter Details Date Type Department Care Team (Late st Contact Info) Description 04/10/2025 Orders Only [facility] [address] [place] [address] Alysia Amador MD [address] [facility] [address] [place] [address] Social History Tobacco Use Types Packs/Day Years [...] on file documented as of this encounter Results * CK (CPK) (04/10/2025 2:15 PM CDT) CPK 113 26 - 192 U/L 04/10/2025 5:24 PM CDT [facility] 04/10/2025 2:15 PM CDT Alysia Amador MD LABORATORY F inal Result [facility] [address] [place] [address], * (ABNORMAL) C-REACTIVE PROTEIN (04/10/2025 2:15 PM CDT) C-REACTIVE PROTEIN 0.47(H) <0.30 mg/dL 04/10/2025 5:24 PM CDT [facility] 04/10/2025 2:15 PM CDT [facility] Marjorie VICTOR LABORATORY F inal Result [facility] [address] [place] [address], * (ABNORMAL) COMPREHENSIVE METABOLIC PANEL (04/10/2025 2:15 PM CDT) Pathologist [facility] SODIUM S/P/B 140 136 - 145 MMOL/L 04/10/2025 5:24 PM CDT [facility] POTASSIUM S/P/B 3.0(L) 3.5 - 5.1 MMOL/L 04/10/2025 5:24 PM CDT [facility] CHLORIDE S/P/B 102 98 - 107 MMOL/L 04/10/2025 5:24 PM CDT [facility] CO2 28.5 21.0 - 32.0 MMOL/L 04/10/2025 5:24 PM CDT [facility] GLUCOSE 176(H) 70 - 99 MG/DL 04/10/2025 5:24 PM CDT [facility] Comment: FASTING GLUCOSE 100 TO 125 MG/DL IS CONSISTENT WITH IMPAIRED FASTING GLUCOSE. FASTING GLUCOSE >125 MG/DL IS CONSISTENT WITH DIABETES. RANDOM GLUCOSE >200 MG/DL WITH HYPERGLYCEMIC SYMPTOMS IS CONSISTENT WITH DIABETES. PER ADA GUIDELINES BUN 15 6 - 24 MG/DL 04/10/2025 5:24 PM CDT [facility] CREATININE S/P/B 1.11(H) 0.55 - 1.02 MG/DL 04/10/2025 5:24 PM CDT [facility] CALCIUM S/P/B 8.3(L) 8.4 - 10.5 MG/DL 04/10/2025 5:24 PM T [facility] BILIRUBIN TOTAL S/P/B 0.3 0.2 - 1.0 MG/DL 04/10/2025 5:24 PM [facility] Comment: THIS ASSAY IS NOT RECOMMENDED FOR PATIENTS UNDERGOING TREATMENT WITH ELTROMBOPAG DUE TO THE POTENTIAL FOR FALSELY ELEVATED RESULTS. ALKALINE PHOSPHATASE S/P/B 123 55 - 142 U/L 04/10/2025 5:24 PM T [facility] AST 17 15 - 37 U/L 04/10/2025 5:24 PM T [facility] ALT 21 14 - 59 U/L 04/10/2025 5:24 PM T [facility] TOTAL PROTEIN S/P/B 6.9 6.4 - 8.2 G/DL 04/10/2025 5:24 PM [facility] ALBUMIN S/P/B 3.1(L) 3.4 - 5.0 G/DL 04/10/2025 5:24 PM T [facility] ANION GAP 9.5 5.0 - 15.0 MMOL/L 04/10/2025 5:24 PM [facility] OSMOLALITY (CALC) 295 MOSM/KG 025 5:24 PM [facility] Comment:REFERENCE RANGE NOT ESTABLISHED GFR ESTIMATE 52(L) >89 ML/MIN/1. 73 M2 04/10/2025 5:24 PM [facility] GFR NOTES GFR REFERENCE S: 04/10/2025 5:24 PM [facility] Comment: THE ESTIMATED GFR IS CALCULATED [...] ml/min/1.73 m2 G5,KIDNEY FAILURE: <15 ml/min/1.73 m2 04/10/2025 2:15 PM CDT Alysia Amador MD LABORATORY F inal Result [facility] [address] [place] [address], * (ABNORMAL) CBC W/DIFF AUTOMATED (04/10/2025 2:15 PM CDT) WBC 6.22 4.00 - 10.80 x10'3/uL 04/10/2025 5:07 PM CDT [facility] RBC 2.80(L) 4.10 - 5.40 x10'6/uL 04/10/2025 5:07 PM CDT [facility] HGB 7.3(L) 12.0 - 16.0 G/DL 04/10/2025 5:07 PM CDT [facility] HCT 23.7(L) 36.0 - 47.0 % 04/10/2025 5:07 PM CDT [facility] MCV 84.6 78.0 - 100.0 FL 04/10/2025 5:07 PM CDT [facility] MCH 26.1(L) 27.0 - 31.0 PG 04/10/2025 5:07 PM CDT [facility] MCHC 30.8(L) 33.0 - 36.0 G/DL 04/10/2025 5:07 PM CDT [facility] RDW 16.0(H) 11.5 - 14.5 % 04/10/2025 5:07 PM CDT [facility] PLT 259 150 - 350 x10'3/uL 04/10/2025 5:07 PM CDT [facility] MPV 10.1 7.4 - 10.4 FL 04/10/2025 5:07 PM CDT [facility] CBC COMMENT NORMAL REFERENCE RANGE NOT ESTABLISHED FOR THE PROPORTIONAL LEUKOCYTE DIFFERENTIAL. 04/10/2025 5:07 PM CDT [facility] NEUTROPHILS % 50.2 % 04/10/2025 5:07 PM CDT [facility] LYMPHOCYTES % 34.1 % 04/10/2025 5:07 PM CDT [facility] MONOCYTES % 9.0 % 04/10/2025 5:07 PM CDT [facility] EOSINOPHILS % 5.0 % 04/10/2025 5:07 PM CDT [facility] BASOPHILS % 1.4 % 04/10/2025 5:07 PM CDT [facility] IMMATURE GRANS % 0.3 % 04/10/20 5:07 PM CDT [facility] NRBC % 0.0 % 04/10/2025 5:07 PM CDT [facility] ABS. NEUTROPHILS 3.12 1.60 - 8.30 x10'3/uL 04/10/2025 5:07 PM CDT [facility] ABS. LYMPHOCYTES 2.12 0.80 - 4.70 x10'3/uL 04/10/2025 5:07 PM CDT [facility] ABS. MONOCYTES 0.56 0.00 - 1.50 x10'3/uL 04/10/2025 5:07 PM CDT [facility] ABS. EOSINOPHILS 0.31 0.00 - 0.40 x10'3/uL 04/10/2025 5:07 PM CDT [facility] ABS. BASOPHILS 0.09 0.00 - 0.20 x10'3/uL 04/10/2025 5:07 PM CDT [facility] ABS. IMMATURE GRANULOCYTES 0.02 0.00 - 0.03 x10'3/uL 04/10/2025 5:07 PM CDT [facility] ABS. NUCLEATED RBC'S 0.00 0.00 - 0.01 x10'3/uL 04/10/2025 5:07 PM CDT [facility] 04/10/2025 2:15 PM CDT Alysia Amador MD LABORATORY F inal Result Performing Organization Address City/[facility]/ZIP Co de Phone Number [facility] [address] [place] [address], [place] [phone] * (ABNORMAL) SED RATE, ERYTHROCYTE (ESR) (04/10/2025 2:15 PM CDT) ESR 22(H) 0 - 20 MM/HR 04/10/2025 5:28 PM CDT [facility] 04/10/2025 2:15 PM CDT Alysia Amador MD LABORATORY F inal Result Performing Organization Address [facility] Co de Phone Number [facility] [place] [address], documented in this encounter Visit Diagnoses Diagnosis Infection and inflammatory reaction due to internal right knee prosthesis, subsequent encounter- Primary documented in this encounter Care Teams Endodontist Relationship Specialty [place] [address] [place] [address] PCP - General FAMILY PRACTICE 03/23/25 documented as of this encounter
--- OUTSIDE RECORDS SUMMARY | 2025-04-14 08:06 | XMS_ITS | Encounter Summary ---
Author Organization [employer] Address [address] [place] [address] Care Team Providers Care Cane Flume Feeding Machine Operator Name Role Phone Mt Cortes MD Primary Care Provider [phone] Encounter Details Date Type Department Care Team (Late st Contact Info) Description 10/14/2003 Outpatient Historical [facility] Internal Medicine [address] [place] [address] Mt Cortes MD [address] [place] [address] Social History Tobacco Use Types Packs/Day Years Used Date Smoking Tobacco: Never Assessed Comments Unknown Sex and Gender Information Value Date Recorded Sex Assigned at Not on file Legal Sex Female 2:41 AM TOOL SMITH Gender Identity Not on file Sexual Orientation Not on file documented as of this encounter Plan of Treatment Not on file documented as of this encounter Visit Diagnoses Not on filedocumented in this encounter Care Teams Cane Flume Feeding Machine Operator Relationship Specialty Start Date End Date Mt Cortes MD [address] [place] [address] PCP - General 05/19/03 09/20/17 documented as of this encounter
--- OUTSIDE RECORDS SUMMARY | 2025-04-14 08:06 | XMS_ITS | Encounter Summary ---
Author Organization [employer] Address [address] [place] [address] Care Team Providers Care Wire Mesh Gate Assembler Name Role Phone Mt Cortes MD Primary Care Provider [phone] Encounter Details Date Type Department Care Team (Late st Contact Info) Description 07/13/2004 Outpatient Historical [facility] Colt Caballero MD [address] [place] [address] MELENA, BLOOD IN STOOL (Primary Dx) Social History Tobacco Use Types Packs/Day Years Used Date Smoking Tobacco: Never Assessed Comments Unknown Sex and Gender Information Value Date Recorded Sex Assigned at Not on file Legal Sex Female 2:41 AM WRONG ADDRESS CLERK Gender Identity Not on file Sexual Orientation Not on file documented as of this encounter Plan of Treatment Not on file documented as of this encounter Visit Diagnoses Diagnosis Blood in stool- Primary documented in this encounter Care Teams Wire Mesh Gate Assembler Relationship Specialty Start Date End Date Mt Cortes MD [address] [place] [address] [facility] [address] [place] [address] PCP - General 05/19/03 09/20/17 documented as of this encounter
--- OUTSIDE RECORDS SUMMARY | 2025-04-14 08:06 | XMS_ITS | Encounter Summary ---
Author Organization [employer] Address [address] [place] [address] Care Team Providers Care Office Cashier Name Role Phone Mt Cortes MD Primary Care Provider [phone] Encounter Details Date Type Department Care Team (Late st Contact Info) Description 12/13/2005 Orders Only [facility] Internal Medicine [address] [place] [address] Mt Cortes MD [address] [place] [address] Social History Tobacco Use Types Packs/Day Years Used Date Smoking Tobacco: Never Assessed Comments Unknown Sex and Gender Information Value Date Recorded Sex Assigned at Not on file Legal Sex Female 2:41 AM DROP WIRER Gender Identity Not on file Sexual Orientation Not on file documented as of this encounter Plan of Treatment Not on file documented as of this encounter Visit Diagnoses Not on filedocumented in this encounter Care Teams Office Cashier Relationship Specialty Start Date End Date Mt Cortes MD [address] [place] [address] PCP - General 05/19/03 09/20/17 documented as of this encounter
--- OUTSIDE RECORDS SUMMARY | 2025-04-14 08:06 | XMS_ITS | Encounter Summary ---
Author Organization [employer] Address [address] [place] [address] Care Team Providers Care Motor Runner Name Role Phone Mt Cortes MD Primary Care Provider [phone] Encounter Details Date Type Department Care Team (Latest Contact Info) Description 11/30/2003 Outpatient Historical [facility] Shobha Hopkins MD [address] [facility] [address] [address] CHRONIC CHOLECYSTITIS NEC (Primary Dx) Social History Tobacco Use Types Packs/Day Years Used Date Smoking Tobacco: Never Assessed Comments Unknown Sex and Gender Information Value Date Recorded Sex Assigned at Not on file Legal Sex Female 2:41 AM VIDEO PRODUCTION COORDINATOR Gender Identity Not on file Sexual Orientation Not on file documented as of this encounter Plan of Treatment Not on file documented as of this encounter Visit Diagnoses Diagnosis Chronic cholecystitis- Primary documented in this encounter Care Teams Motor Runner Relationship Specialty Start Date End Date Mt Cortes MD [address] [facility] [address] [place] [address] PCP - General 05/19/03 09/20/17 documented as of this encounter
--- OUTSIDE RECORDS SUMMARY | 2025-04-14 08:06 | XMS_ITS | Encounter Summary ---
Author Organization [employer] Address [address] [place] [address] Care Team Providers Care Geomorphology Teacher Name Role Phone Mt Cortes MD Primary Care Provider [phone] Encounter Details Date Type Department Care Team (Late st Contact Info) Description 06/20/2005 Outpatient Historical [facility] Internal Medicine [address] [place] [address] Mt Cortes MD [address] [place] [address] Social History Tobacco Use Types Packs/Day Years Used Date Smoking Tobacco: Never Assessed Comments Unknown Sex and Gender Information Value Date Recorded Sex Assigned at Not on file Legal Sex Female 2:41 AM JUVENILE DETENTION OFFICER Gender Identity Not on file Sexual Orientation Not on file documented as of this encounter Plan of Treatment Not on file documented as of this encounter Visit Diagnoses Not on filedocumented in this encounter Care Teams Geomorphology Teacher Relationship Specialty Start Date End Date Mt Cortes MD [address] [place] [address] PCP - General 05/19/03 09/20/17 documented as of this encounter
--- OUTSIDE RECORDS SUMMARY | 2025-04-14 08:06 | XMS_ITS | Encounter Summary ---
Author Organization [employer] Address [address] [place] [address] Care Team Providers Care Director Digital Name Role Phone Mt Cortes MD Primary Care Provider [phone] Encounter Details Date Type Department Care Team (Latest Contact Info) Description 05/19/2003 Outpatient [facility] [address] [place] [address] [place] [address] Mt Cortes MD [address] [place] [address] PURE HYPERCHOLESTEROLEM (Primary Dx) Social History Tobacco Use Types Packs/Day Years Used Date Smoking Tobacco: Never Assessed Comments Unknown Sex and Gender Information Value Date Recorded Sex Assigned at Not on file Legal Sex Female 2:41 AM TABLE KEEPER Gender Identity Not on file Sexual Orientation Not on file documented as of this encounter Plan of Treatment Not on file documented as of this encounter Visit Diagnoses Diagnosis Pure hypercholesterolemia- Primary documented in this encounter Care Teams Director Digital Relationship Specialty Start Date End Date Mt Cortes MD [address] [place] [address] PCP - General 05/19/03 09/20/17 documented as of this encounter
--- OUTSIDE RECORDS SUMMARY | 2025-04-14 08:06 | XMS_ITS | Encounter Summary ---
Author Organization [employer] Address [address] [place] [address] Care Team Providers Care Thermostat Machine Tender Name Role Phone Mt Cortes MD Primary Care Provider [phone] Encounter Details Date Type Department Care Team (Late st Contact Info) Description 01/23/2003 Outpatient Historical [facility] Internal Medicine [address] [place] [address] Mt Cortes MD [address] [place] [address] Social History Tobacco Use Types Packs/Day Years Used Date Smoking Tobacco: Never Assessed Comments Unknown Sex and Gender Information Value Date Recorded Sex Assigned at Not on file Legal Sex Female 2:41 AM ADVANCED CLINICAL SPECIALIST Gender Identity Not on file Sexual Orientation Not on file documented as of this encounter Plan of Treatment Not on file documented as of this encounter Visit Diagnoses Not on filedocumented in this encounter Care Teams Thermostat Machine Tender Relationship Specialty Start Date End Date Mt Cortes MD [address] [place] [address] PCP - General 05/19/03 09/20/17 documented as of this encounter
--- OUTSIDE RECORDS SUMMARY | 2025-04-14 08:06 | XMS_ITS | Encounter Summary ---
Author Organization [employer] Address [address] [place] [address] Care Team Providers Care Allergist/Md Name Role Phone Mt Cortes MD Primary Care Provider [phone] Encounter Details Date Type Department Care Team (Late st Contact Info) Description 05/28/2007 Orders Only [facility] Internal Medicine [address] [place] [address] Mt Cortes MD [address] [place] [address] Social History Tobacco Use Types Packs/Day Years Used Date Smoking Tobacco: Never Assessed Comments Unknown Sex and Gender Information Value Date Recorded Sex Assigned at Not on file Legal Sex Female 2:41 AM BUSINESS BROKER Gender Identity Not on file Sexual Orientation Not on file documented as of this encounter Plan of Treatment Not on file documented as of this encounter Visit Diagnoses Not on filedocumented in this encounter Care Teams Allergist/Md Relationship Specialty Start Date End Date Mt Cortes MD [address] [place] [address] PCP - General 05/19/03 09/20/17 documented as of this encounter
--- OUTSIDE RECORDS SUMMARY | 2025-04-14 08:06 | XMS_ITS | Encounter Summary ---
Author Organization [employer] Address [address] [place] [address] Care Team Providers Care Operations Section Manager Name Role Phone Mt Cortes MD Primary Care Provider Encounter Details Date Type Department Care Team (Late st Contact Info) Description 07/01/2004 Outpatient Historical [facility] DEPT Mt Cortes MD [address] [place] [phone] ABDOMINAL PAIN UNSPEC SITE (Primary Dx) Social History Tobacco Use Types Packs/Day Years Used Date Smoking Tobacco: Never Assessed Comments Unknown Sex and Gender Information Value Date Recorded Sex Assigned at Not on file Legal Sex Female 2:41 AM MANAGER UTILITY Gender Identity Not on file Sexual Orientation Not on file documented as of this encounter Plan of Treatment Not on file documented as of this encounter Visit Diagnoses Diagnosis Abdominal pain, unspecified site- Primary documented in this encounter Care Teams Operations Section Manager Relationship Specialty Start Date End Date Mt Cortes MD [address] [place] [phone] PCP - General 05/19/03 09/20/17 documented as of this encounter
--- OUTSIDE RECORDS SUMMARY | 2025-04-14 08:06 | XMS_ITS | Clinical Summary ---
Author Organization [facility] Address [facility] [place] [address] Care Team Providers Care Terrazzo Layer Helper Name Role Phone Cirilo Juarez MD Primary [...] Diagnosed Date Staphylococcal arthritis of right knee ([facility] HHS/HCC) 03/28/2025 PAF (paroxysmal atrial fibrillation) ([facility] HH S/HCC) 03/28/2025 Gastroesophageal reflux disease without esophagi tis 03/28/2025 Encounters Date Type Department Care Team Description 04/10/2025 4:59 PM CDT - 04/10/2025 11:59 PM CDT Hospital Encounter [facility] [address] [place] [address] Alysia Machado MD Discharge Disposition: Home or Self Care (Routine Discharge) 04/10/2025 Orders Only [facility] [address] [place] [address] Alysia Machado MD 03/31/2025 3:26 PM CDT - 03/31/2025 11:59 PM CDT Hospital Encounter [facility] [address] [place] [address] Alysia Machado MD Discharge Disposition: Home or Self Care (Routine Discharge) 03/31/2025 Orders Only [facility] [address] [place] [address] Alysia Machado MD 03/31/2025 Orders Only [facility] [address] [place] [address] Alysia Machado MD 03/25/2025 9:25 AM CDT - 03/25/2025 11:59 PM CDT Hospital Encounter [facility] [address] [place] [address] Cirilo Juarez MD Discharge Disposition: Home or Self Care (Routine Discharge) 03/25/2025 Results Follow-Up [facility] [address] [place] [address] Cirilo Juarez MD CK (CPK), CBC W/DIFF AUTOMATED, COMPREHENSIVE METABOLIC PANEL 03/25/2025 Orders Only [facility] [address] [place] [address] Cirilo Juarez MD 2025 3:40 PM CDT Long-Term [facility] Internal [facility] [address] [place] [address] Cirilo Juarez MD Long-Term ([facility] ) 03/16/2025 Telephone [facility] [address] [place] [address] aMry Conner, yarn examiner (Swing bed referral to [facility] from [facility]/) from Last 3 Months Immunizations Immunization Administration [...] PCV21) 02/15/2024 02/14/2019, 08/07/2016, 05/19/2014 PHQ-2 ([facility]) 09/24/2024 COVID-19 Vaccine ( season) 2024 06/26/2024, [...] Procedure Name Priority Date/Time Associated Diagnosis Comments SED RATE, ERYTHROCYTE (ESR) Routine 04/10/2025 2:15 PM CDT Infection and inflammatory reaction due to internal right knee prosthesis, subsequent encounter CBC W/DIFF AUTOMATED Routine 04/10/2025 2:15 PM CDT Infection and inflammatory reaction due to internal right knee prosthesis, subsequent encounter COMPREHENSIVE METABOLIC PANEL Routine 04/10/2025 2:15 PM CDT Infection and inflammatory reaction due to internal right knee prosthesis, subsequent encounter C-REACTIVE PROTEIN Routine 04/10/2025 2: 15 PM CDT Infection and inflammatory reaction due to internal right knee prosthesis, subsequent encounter CK (CPK) Routine 04/10/2025 2:15 PM CDT Infection and inflammatory reaction due to internal right knee prosthesis, subsequent encounter C-REACTIVE PROTEIN Routine 03/31/2025 2: 35 PM [...] Results * (ABNORMAL) SED RATE, ERYTHROCYTE (ESR) (04/10/2025 2:15 PM CDT) Only the most recent of2 resultswithin the time period is included. ESR 22(H) 0 - 20 MM/HR 04/10/2025 5:28 PM CDT [facility] 04/10/2025 2:15 PM CDT [facility] Marjorie [facility] F inal Result [facility] [address] [place] [address], * (ABNORMAL) COMPREHENSIVE METABOLIC PANEL (04/10/2025 2:15 PM CDT) Only the most recent of3 resultswithin the time period is included. SODIUM S/P/B 140 136 - 145 MMOL/L 04/10/2025 5:24 PM CDT [facility] POTASSIUM S/P/B 3.0(L) 3.5 - 5.1 MMOL/L 04/10/2025 5:24 PM CDT [facility] CHLORIDE S/P/B 102 98 - 107 MMOL/L 04/10/2025 5:24 PM CDT [facility] CO2 28.5 21.0 - 32.0 MMOL/L 04/10/2025 5:24 PM CDT [facility] GLUCOSE 176(H) 70 - 99 MG/DL 04/10/2025 5:24 PM CDT [facility] Comment: FASTING GLUCOSE 100 TO 125 MG/DL IS CONSISTENT WITH IMPAIRED FASTING GLUCOSE. FASTING GLUCOSE >125 MG/DL IS CONSISTENT WITH DIABETES. RANDOM GLUCOSE >200 MG/DL WITH HYPERGLYCEMIC SYMPTOMS IS CONSISTENT WITH DIABETES. PER ADA GUIDELINES BUN 15 6 - 24 MG/DL 04/10/2025 5:24 PM CDT [facility] CREATININE S/P/B 1.11(H) 0.55 - 1.02 MG/DL 04/10/2025 5:24 PM CDT [facility] CALCIUM S/P/B 8.3(L) 8.4 - 10.5 MG/DL 04/10/2025 5:24 PM CDT [facility] BILIRUBIN TOTAL S/P/B 0.3 0.2 - 1.0 MG/DL 04/10/2025 5:24 PM CDT [facility] Comment: THIS ASSAY IS NOT RECOMMENDED FOR PATIENTS UNDERGOING TREATMENT WITH ELTROMBOPAG DUE TO THE POTENTIAL FOR FALSELY ELEVATED RESULTS. ALKALINE PHOSPHATASE S/P/B 123 55 - 142 U/L 04/10/2025 5:24 PM CDT [facility] AST 17 15 - 37 U/L 04/10/2025 5:24 PM CDT [facility] ALT 21 14 - 59 U/L 04/10/2025 5:24 PM CDT [facility] TOTAL PROTEIN S/P/B 6.9 6.4 - 8.2 G/DL 04/10/2025 5:24 PM T [facility] ALBUMIN S/P/B 3.1(L) 3.4 - 5.0 G/DL 04/10/2025 5:24 PM T [facility] ANION GAP 9.5 5.0 - 15.0 MMOL/L 04/10/2025 5:24 PM T [facility] OSMOLALITY (CALC) 295 MOSM/KG 025 5:24 PM T [facility] Comment:REFERENCE RANGE NOT ESTABLISHED GFR ESTIMATE 52(L) >89 ML/MIN/1. 73 M2 04/10/2025 5:24 PM T [facility] GFR NOTES GFR REFERENCE S: 04/10/2025 5:24 PM T [facility] Comment: THE ESTIMATED GFR IS CALCULATED [...] <15 ml/min/1.73 m2 04/10/2025 2:15 PM CDT [facility] F inal Result Performing Organization Address [facility] Co de Phone Number [facility] [address] [place] [address], * (ABNORMAL) C-REACTIVE PROTEIN (04/10/2025 2:15 PM CDT) Only the most recent of2 resultswithin the time period is included. C-REACTIVE PROTEIN 0.47(H) <0.30 mg/dL 04/10/2025 5:24 PM CDT [facility] 04/10/2025 2:15 PM CDT [facility] F inal Result Performing Organization Address [facility] de Phone Number [facility] [address] [place] [address], * (ABNORMAL) CBC W/DIFF AUTOMATED (04/10/2025 2:15 PM CDT) Only the most recent of3 resultswithin the time period is included. WBC 6.22 4.00 - 10.80 x10'3/uL 04/10/2025 5:07 PM CDT [facility] RBC 2.80(L) 4.10 - 5.40 x10'6/uL 04/10/2025 5:07 PM CDT [facility] HGB 7.3(L) 12.0 - 16.0 G/DL 04/10/2025 5:07 PM CDT [facility] HCT 23.7(L) 36.0 - 47.0 % 04/10/2025 5:07 PM CDT [facility] MCV 84.6 78.0 - 100.0 FL 04/10/2025 5:07 PM CDT [facility] MCH 26.1(L) 27.0 - 31.0 PG 04/10/2025 5:07 PM CDT [facility] MCHC 30.8(L) 33.0 - 36.0 G/DL 04/10/2025 5:07 PM CDT [facility] RDW 16.0(H) 11.5 - 14.5 % 04/10/2025 5:07 PM CDT [facility] PLT 259 150 - 350 x10'3/uL 04/10/2025 5:07 PM CDT [facility] MPV 10.1 7.4 - 10.4 FL 04/10/2025 5:07 PM CDT [facility] CBC COMMENT NORMAL REFERENCE RANGE NOT ESTABLISHED FOR THE PROPORTIONAL LEUKOCYTE DIFFERENTIAL. 04/10/2025 5:07 PM CDT [facility] NEUTROPHILS % 50.2 % 04/10/2025 5:07 PM CDT [facility] LYMPHOCYTES % 34.1 % 04/10/2025 5:07 PM CDT [facility] MONOCYTES % 9.0 % 04/10/2025 5:07 PM CDT [facility] EOSINOPHILS % 5.0 % 04/10/2025 5:07 PM CDT [facility] BASOPHILS % 1.4 % 04/10/2025 5:07 PM CDT [facility] IMMATURE GRANS % 0.3 % 04/10/20 5:07 PM CDT [facility] NRBC % 0.0 % 04/10/2025 5:07 PM CDT [facility] ABS. NEUTROPHILS 3.12 1.60 - 8.30 x10'3/uL 04/10/2025 5:07 PM CDT [facility] ABS. LYMPHOCYTES 2.12 0.80 - 4.70 x10'3/uL 04/10/2025 5:07 PM CDT [facility] ABS. MONOCYTES 0.56 0.00 - 1.50 x10'3/uL 04/10/2025 5:07 PM CDT [facility] ABS. EOSINOPHILS 0.31 0.00 - 0.40 x10'3/uL 04/10/2025 5:07 PM CDT [facility] ABS. BASOPHILS 0.09 0.00 - 0.20 x10'3/uL 04/10/2025 5:07 PM CDT [facility] ABS. IMMATURE GRANULOCYTES 0.02 0.00 - 0.03 x10'3/uL 04/10/2025 5:07 PM CDT [facility] ABS. NUCLEATED RBC'S 0.00 0.00 - 0.01 x10'3/uL 04/10/2025 5:07 PM CDT [facility] 04/10/2025 2:15 PM CDT Alysia Amador MD LABORATORY F inal Result [facility] [address] [place] [address], * CK (CPK) (04/10/2025 2:15 PM CDT) Only the most recent of3 resultswithin the time period is included. CPK 113 26 - 192 U/L 04/10/2025 5:24 PM CDT [facility] 04/10/2025 2:15 PM CDT Alysia Amador MD LABORATORY F inal Result [facility] [address] [place] [address], from Last 3 Months Insurance MEDICARE [facility] Care Teams Terrazzo Layer Helper Relationship Specialty [place] [address] [place], [place] [address] PCP - General FAMILY PRACTICE 03/23/25
--- OUTSIDE RECORDS SUMMARY | 2025-04-14 08:06 | XMS_ITS | Encounter Summary ---
Author Organization [employer] Address 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
--- OUTSIDE RECORDS SUMMARY | 2025-04-14 08:06 | XMS_ITS | Encounter Summary ---
Author Organization [employer] Address [address] [place] [address] Care Team Providers Care Overhead Worker Name Role Phone Mt Cortes MD Primary Care Provider Encounter Details Date Type Department Care Team (Late st Contact Info) Description 10/13/2005 [facility] [address] [place] [address] Mt Cortes MD [address] [facility] [address] [place] [address] Social History Tobacco Use Types Packs/Day Years Used Date Smoking Tobacco: Never Assessed Comments Unknown Sex and Gender Information Value Date Recorded Sex Assigned at Not on file Legal 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 WHO CALLED: Pharmacy called. PHARMACY NUMBER: [phone] SECTION 1: REQUESTED ACTION ashley 10/13/05 at 03:39 pm: MEDICATION REQUEST: Patient requests a refill. Lisinopril 5mg 1 tablet by mouth daily. #30/rll DOCTOR`S RESPONSE: ange 10/13/05 at 04:00 pm MEDICATIONS: Call in to Pharmacy LISINOPRIL ORAL TABLET 5 MG, 1 Every Day, 30 Dispensed, 5 Fills, status: CONTINUED, 10/13/2005. FINAL ACTION: lamprl 10/13/05 at 04:28 pm Called pharmacy at 10/13/05 at 04:28 pm. left message on voice mail/rll Electronically Signed by: Vilma Alcantar on Thursday, October 13, 2005 documented in this encounter Plan of Treatment Not on file documented as of this encounter Visit Diagnoses Not on filedocumented in this encounter Care Teams Overhead Worker Relationship Specialty Start Date End Date Mt Cortes MD [address] [facility] [address] [place] [address] PCP - General 05/19/03 09/20/17 documented as of this encounter
--- OUTSIDE RECORDS SUMMARY | 2025-04-14 08:06 | XMS_ITS | Encounter Summary ---
Author Organization [employer] Address [address] [place] [address] Care Team Providers Care Straightener Hand Name Role Phone Mt Cortes MD Primary Care Provider [phone] Encounter Details Date Type Department Care Team (Late st Contact Info) Description 10/23/2005 Outpatient [facility] [address] 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
--- OUTSIDE RECORDS SUMMARY | 2025-04-14 08:06 | XMS_ITS | Encounter Summary ---
Author Organization [employer] Address [address] [place] [address] Care Team Providers Care Salon Stylist Name Role Phone Mt Cortes MD Primary Care Provider [phone] Encounter Details Date Type Department Care Team (Late st Contact Info) Description 05/19/2003 Outpatient Historical [facility] Internal Medicine [address] [place] [address] Mt Cortes MD [address] [place] [address] Social History Tobacco Use Types Packs/Day Years Used Date Smoking Tobacco: Never Assessed Comments Unknown Sex and Gender Information Value Date Recorded Sex Assigned at Not on file Legal 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
--- OUTSIDE RECORDS SUMMARY | 2025-04-14 08:06 | XMS_ITS | Clinical Summary ---
Author Organization [facility] Address [address] [facility] Attn: Epic Prelude ADT [place] [address] Care Team Providers Care Grounds Restoration Specialist Name Role Phone Unavailable Primary Care Provider Unavailabl e Medications CARTIA XT 180 MG 24 HR CAP 1 Every Day 30.00 6 12/13/2005 Active NEXIUM 40 MG CAP 1 Every Day 30.00 6 12/13/2005 Active LISINOPRIL 5 MG TAB 1 Every Day 30.00 6 05/28/2007 Active Social History Tobacco Use Types Packs/Day Years Used Date Smoking Tobacco: Never Assessed Comments Unknown Sex and Gender Information Value Date Recorded Sex Assigned at Not on file 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
--- OUTSIDE RECORDS SUMMARY | 2025-04-14 08:06 | XMS_ITS | Encounter Summary ---
Author Organization [employer] Address [address] [place] [address] Care Team Providers Care Editorial Clerk Name Role Phone Mt Cortes MD Primary Care Provider [phone] Encounter Details Date Type Department Care Team (Late st Contact Info) Description 02/18/2003 Outpatient Historical [facility] Internal Medicine [address] [place] [address] Mt Cortes MD [address] [place] [phone] Social History Tobacco Use Types Packs/Day Years Used Date Smoking Tobacco: Never Assessed Comments Unknown Sex and Gender Information Value Date Recorded Sex Assigned at Not on file Legal Sex Female 2:41 AM RN URGENT CARE Gender Identity Not on file Sexual Orientation Not on file documented as of this encounter Plan of Treatment Not on file documented as of this encounter Visit Diagnoses Not on filedocumented in this encounter Care Teams Editorial Clerk Relationship Specialty Start Date End Date Mt Cortes MD [address] [place] [phone] PCP - General 05/19/03 09/20/17 documented as of this encounter
--- OUTSIDE RECORDS SUMMARY | 2025-04-14 08:06 | XMS_ITS | Encounter Summary ---
Author Organization [employer] Address [address] [place] [address] Care Team Providers Care High Voltage Electrician Name Role Phone Mt Cortes MD Primary Care Provider [phone] Encounter Details Date Type Department Care Team (Late st Contact Info) Description 08/17/2003 Outpatient Historical [facility] Colt Caballero MD [address] [facility] [place] [address] SCREENING MAL NEOP-COLON (Primary Dx) Social History Tobacco Use Types Packs/Day Years Used Date Smoking Tobacco: Never Assessed Comments Unknown Sex and Gender Information Value Date Recorded Sex Assigned at Not on file Legal Sex Female 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
--- OUTSIDE RECORDS SUMMARY | 2025-04-14 08:06 | XMS_ITS | Clinical Summary ---
Author Organization Unknown Care Team Providers Care Community Program Assistant Name Role Phone MARY VILLALOBOS Unavailable Unavailable AJITH GAMBLE, BOGDAN Unavailable Unavailable Payers Payer Name Policy Type Policy Number Effective Date Expira tion Date MEDICARE - [place] - [facility] [id number] Problems Condition Name Condition Details Condition Category Status Onset Date Resolution Date Last Treatment Date Treating Clinician Comments INFECT/INFL M REACTION DUE TO INTERNAL R KNEE PROSTH, INIT Active 03-10 00:00: 00 INFECT/INFL M REACTION DUE TO INTERNAL R KNEE PROSTH, SUBS Active 03-27 00:00: 00 Allergies, Adverse Reactions, Alerts Allergy Name Allergy Type Status Severity Reaction(s) Onset Date Inactive Date Treating Clinician Comments NKA Propensity to adverse reactions Active 2025-03 16:25:2 8 Immunizations Ordered Immunization Name Filled Immunization Name Date Status Comments Refusal Reason COVID-19, COVID-19 2024-07-23 00:00:00 PNEUMOCOCCAL (PPV), PPV 2024-03-25 00:00:00 Vital Signs Vital Name Observation Time Observation Value Commen ts Temperature 2025-04-10 13:45:00.000 97.2 [degF] Temperature 2025-04-07 06:54:00.000 97.1 [degF] Temperature 2025-04-03 07:22:00.000 97 [degF] Temperature 2025-03-31 15:14:00.000 97 [degF] Temperature 2025-03-31 14:12:00.000 97.8 [degF] Temperature 2025-03-31 10:48:00.000 97.6 [degF] Temperature 2025-03-27 13:44:00.000 97.3 [degF] BMI (%) 2025-03-29 00:13:55.000 42 kg/m2 Height 2025-03-28 23:42:10.000 63 [in_us] Pulse 2025-04-10 13:45:00.000 72 /min Pulse 2025-04-07 06:54:00.000 70 /min Pulse 2025-04-03 07:22:00.000 76 /min Pulse 2025-03-31 15:14:00.000 70 /min Pulse 2025-03-31 14:12:00.000 73 /min Pulse 2025-03-31 10:48:00.000 78 /min Pulse 2025-03-27 13:44:00.000 73 /min O2 Saturation (%) 2025-04-10 13:45:00.000 98 % O2 Saturation (%) 2025-04-07 06:54:00.000 95 % O2 Saturation (%) 2025-04-03 07:22:00.000 98 % O2 Saturation (%) 2025-03-31 15:14:00.000 98 % O2 Saturation (%) 2025-03-31 14:12:00.000 96 % O2 Saturation (%) 2025-03-31 10:49:00.000 96 % O2 Saturation (%) 2025-03-27 13:44:00.000 97 % Respirations 2025-04-10 13:45:00.000 16 /min Respirations 2025-04-07 06:54:00.000 16 /min Respirations 2025-04-03 07:22:00.000 18 /min Respirations 2025-03-31 15:14:00.000 18 /min Respirations 2025-03-31 14:12:00.000 18 /min Respirations 2025-03-31 10:50:00.000 18 /min Respirations 2025-03-27 13:44:00.000 18 /min Weight (lbs) 2025-03-29 00:13:55.000 241 [lb_av] Systolic Blood Pressure 2025-04-10 13:45:00.000 128 mm [Hg] Systolic Blood Pressure 2025-04-07 06:54:00.000 130 mm [Hg] Systolic Blood Pressure 2025-04-03 07:22:00.000 142 mm [Hg] Systolic Blood Pressure 2025-03-31 15:14:00.000 138 mm [Hg] Systolic Blood Pressure 2025-03-31 14:12:00.000 132 mm [Hg] Systolic Blood Pressure 2025-03-31 10:48:00.000 121 mm [Hg] Systolic Blood Pressure 2025-03-27 13:44:00.000 132 mm [Hg] Diastolic Blood Pressure 2025-04-10 13:45:00.000 62 mm [Hg] Diastolic Blood Pressure 2025-04-07 06:54:00.000 62 mm [Hg] Diastolic Blood Pressure 2025-04-03 07:22:00.000 80 mm [Hg] Diastolic Blood Pressure 2025-03-31 15:14:00.000 86 mm [Hg] Diastolic Blood Pressure 2025-03-31 14:12:00.000 70 mm [Hg] Diastolic Blood Pressure 2025-03-31 10:48:00.000 78 mm [Hg] Diastolic Blood Pressure 2025-03-27 13:44:00.000 64 mm [Hg] Plan of Treatment Planned Activity Planned Date Details Comments Future Scheduled Test SKILLED NU RSE TO EVALUATE PATIENT, IDENTIFY PRIMARY AND CO-MORBID CONDITIONS CODED PER CODING GUIDELINES, AND DEVELOP PATIENT SPECIFIC PLAN OF CARE THAT INCLUDES PATIENT GOAL FOR HOME HEALTH. 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 [code = OCCUPATIONAL THERAPIST TO EVALUATE PATIENT FOR ADL DEFICITS.] Future Scheduled Test SKILLED NU RSE FOR O/A AND SKILLED TEACHING RELATED TO SIGNS AND SYMPTOMS OF INFECTION AND INFECTION CONTROL MEASURES. [code = SKILLED NURSE FOR O/A AND SKILLED TEACHING RELATED TO SIGNS AND SYMPTOMS OF INFECTION AND INFECTION CONTROL MEASURES.] Future Scheduled Test NEED FOR S KILLED TEACHING AND INTERVENTION RELATED TO SURGICAL INCISION TO RIGHT KNEE. INCISION IS NEWLY EPITHELIALIZED. LEAVE INCISION CLEAN DRY AND OPEN TO AIR. [code = NEED FOR SKILLED TEACHING AND INTERVENTION RELATED TO SURGICAL INCISION TO RIGHT KNEE. INCISION IS NEWLY EPITHELIALIZED. LEAVE INCISION CLEAN DRY AND OPEN TO AIR. ] Future Scheduled Test PHYSICAL T HERAPIST TO EVALUATE PATIENT FOR WEAKNESS AND GAIT TRAINING. [code = PHYSICAL THERAPIST TO EVALUATE PATIENT FOR WEAKNESS AND GAIT TRAINING.] Future Scheduled Test SKILLED NU RSE TO INSTRUCT PATIENT/CAREGIVER ON SIGNS AND SYMPTOMS, RISK FACTORS, COMPLICATIONS, AND MANAGEMENT OF ATRIAL FIBRILLATION. [code = SKILLED NURSE TO INSTRUCT PATIENT/CAREGIVER ON SIGNS AND SYMPTOMS, RISK FACTORS, COMPLICATIONS, AND MANAGEMENT OF ATRIAL FIBRILLATION.] Future Scheduled Test SKILLED NU RSE TO PROVIDE TEACHING ON SIGNS AND SYMPTOMS AND MANAGEMENT OF HYPERTENSION. [code = SKILLED NURSE TO PROVIDE TEACHING ON SIGNS AND SYMPTOMS AND MANAGEMENT OF HYPERTENSION.] Future Scheduled Test SKILLED NU RSE FOR O/A AND SKILLED TEACHING RELATED TO ALTERED SKIN INTEGRITY REGARDING INFECTION/INFLAMMATION D/T RIGHT KNEE PROSTHESIS. [code = SKILLED NURSE FOR O/A AND SKILLED TEACHING RELATED TO ALTERED SKIN INTEGRITY REGARDING INFECTION/INFLAMMATION D/T RIGHT KNEE PROSTHESIS.] Future Scheduled Test SKILLED NU RSE TO INSTRUCT PATIENT/CAREGIVER ON PREVENTION OF SEPSIS, AND SIGNS AND SYMPTOMS OF SEPSIS TO REPORT. [code = SKILLED NURSE TO INSTRUCT PATIENT/CAREGIVER ON PREVENTION OF SEPSIS, AND SIGNS AND SYMPTOMS OF SEPSIS TO REPORT.] Future Scheduled Test SKILLED NU RSE FOR O/A AND TEACHING ON IV SITE CARE, INFUSION PROCEDURE, SIGNS AND SYMPTOMS OF INFECTION/COMPLICATIONS. SKILLED NURSE TO OBTAIN IV ACCESS TO CENTRAL LINE VIA YEE PICC. SKILLED NURSE OR TRAINED PATIENT/CAREGIVER TO ADMINISTER IV THERAPY OF CEFTRIAXONE 2 GM/20 MLS SW IV PUSH OVER 10 MINS Q24 HRS AND DAPTOMYCIN 600 MG/20 MLS NS IV PUSH OVER 3 MINS Q24 HRS. EOT 04/21/25. FLUSH PICC LINE WITH 10 MLS NS BEFORE AND AFTER ANTIBIOTIC INFUSIONS FOLLOWED BY 5 MLS HEPARIN 10 U/ML. SKILLED NURSE TO CHANGE DRESSING USING STERILE TECHNIQUE WEEKLY AND PRN FOR SOILED OR LOOSE DRESSING. [code = SKILLED NURSE FOR O/A AND TEACHING ON IV SITE CARE, INFUSION PROCEDURE, SIGNS AND SYMPTOMS OF INFECTION/COMPLICATIONS. SKILLED NURSE TO OBTAIN IV ACCESS TO CENTRAL LINE VIA YEE PICC. SKILLED NURSE OR TRAINED PATIENT/CAREGIVER TO ADMINISTER IV THERAPY OF CEFTRIAXONE 2 GM/20 MLS SW IV PUSH OVER 10 MINS Q24 HRS AND DAPTOMYCIN 600 MG/20 MLS NS IV PUSH OVER 3 MINS Q24 HRS. EOT 04/21/25. FLUSH PICC LINE WITH 10 MLS NS BEFORE AND AFTER ANTIBIOTIC INFUSIONS FOLLOWED BY 5 MLS HEPARIN 10 U/ML. SKILLED NURSE TO CHANGE DRESSING USING STERILE TECHNIQUE WEEKLY AND PRN FOR SOILED OR LOOSE DRESSING.] Future Scheduled Test SKILLED NU RSE TO OBTAIN BLOOD SPECIMEN VIA VENIPUNCTURE AND/OR CENTRAL LINE FOR CBC WITH DIFF, CMP, AND CPK WEEKLY ON TUESDAYS. OBTAIN CPK AGAIN WEEKLY ON THURSDAYS OR FRIDAYS. AT WEEK 3 6 (WEEK OF 03/29/25 AND 04/19/25), OBTAIN ESR AND CRP. DIAGNOSIS INFECTION/INFLAMMATION D/T RIGHT KNEE PROSTHESIS T84.53XA. OBTAIN LAB RESULTS AND FAX TO DR MARGOT SANTIZO, [facility] [phone] AND [facility] [phone]. [code = SKILLED NURSE TO OBTAIN BLOOD SPECIMEN VIA VENIPUNCTURE AND/OR CENTRAL LINE FOR CBC WITH DIFF, CMP, AND CPK WEEKLY ON TUESDAYS. OBTAIN CPK AGAIN WEEKLY ON THURSDAYS OR FRIDAYS. AT WEEK 3 6 (WEEK OF 03/29/25 AND 04/19/25), OBTAIN ESR AND CRP. DIAGNOSIS INFECTION/INFLAMMATION D/T RIGHT KNEE PROSTHESIS T84.53XA. OBTAIN LAB RESULTS AND FAX TO DR MARGOT SANTIZO, [facility] [phone] AND [facility] [phone].] Future Scheduled Test SKILLED NU RSE FOR O/A AND SKILLED TEACHING RELATED TO SIGNS AND SYMPTOMS AND MANAGEMENT OF RIGHT TKA INFECTION. [code = SKILLED NURSE FOR O/A AND SKILLED TEACHING RELATED TO SIGNS AND SYMPTOMS AND MANAGEMENT OF RIGHT TKA INFECTION.] Future Scheduled Test PATIENT OWEN S A RISK OF HOSPITALIZATION AND ED USE. SKILLED NURSE TO ESTABLISH SUPPORT MEASURES TO MINIMIZE RISK OF HOSPITALIZATION AND ED USE, AND INSTRUCT PATIENT/CAREGIVER ON METHODS TO REDUCE AVOIDABLE HOSPITALIZATION AND ED USE. [code = PATIENT HAS A RISK OF HOSPITALIZATION AND ED USE. SKILLED NURSE TO ESTABLISH SUPPORT MEASURES TO MINIMIZE RISK OF HOSPITALIZATION AND ED USE, AND INSTRUCT PATIENT/CAREGIVER ON METHODS TO REDUCE AVOIDABLE HOSPITALIZATION AND ED USE.] Future Scheduled Test SKILLED NU RSE TO PROVIDE INSTRUCTION TO PATIENT/CAREGIVER RELATED TO DISCHARGE PLANNING. [code = SKILLED NURSE TO PROVIDE INSTRUCTION TO PATIENT/CAREGIVER RELATED TO DISCHARGE PLANNING.] Future Scheduled Test SKILLED NU RSE TO PERFORM ENVIRONMENTAL SAFETY RISK ASSESSMENT AND FALL RISK ASSESSMENT AND PROVIDE INSTRUCTION TO IMPLEMENT ENVIRONMENTAL SAFETY AND FALL PREVENTION STRATEGIES THROUGHOUT THE CERTIFICATION PERIOD. SKILLED NURSE WILL MAINTAIN SITUATIONAL AWARENESS AND WILL NOTIFY CLINICAL SENIOR PHYSICIAN AND PHYSICIAN/PROVIDER WITH ANY CHANGE IN CONDITION. PATIENT TO HAVE RIGHT KNEE IMMOBILIZER ON WHEN AMBULATING. PATIENT IS 20 LB FOOT FLAT WEIGHT BEARING TO RLE. [code = SKILLED NURSE TO PERFORM ENVIRONMENTAL SAFETY RISK ASSESSMENT AND FALL RISK ASSESSMENT AND PROVIDE INSTRUCTION TO IMPLEMENT ENVIRONMENTAL SAFETY AND FALL PREVENTION STRATEGIES THROUGHOUT THE CERTIFICATION PERIOD. SKILLED NURSE WILL MAINTAIN SITUATIONAL AWARENESS AND WILL NOTIFY CLINICAL SENIOR PHYSICIAN AND PHYSICIAN/PROVIDER WITH ANY CHANGE IN CONDITION. PATIENT TO HAVE RIGHT KNEE IMMOBILIZER ON WHEN AMBULATING. PATIENT IS 20 LB FOOT FLAT WEIGHT BEARING TO RLE.] Future Scheduled Test SKILLED NU RSE FOR OBSERVATION AND ASSESSMENT OF PATIENTS PAIN LEVEL AND EFFECTIVENESS OF PAIN MANAGEMENT REGIMEN. SKILLED NURSE TO INSTRUCT PATIENT/CAREGIVER REGARDING PHARMACOLOGIC AND NON-PHARMACOLOGIC PAIN CONTROL MEASURES. SKILLED NURSE TO REPORT TO PHYSICIAN IF PAIN LEVEL IS OUTSIDE OF ESTABLISHED PARAMETERS. PATIENT MAY USE ICE APPLICATION 20 MINS/HR FOR PAIN/EDEMA MANAGEMENT. [code = SKILLED NURSE FOR OBSERVATION AND ASSESSMENT OF PATIENTS PAIN LEVEL AND EFFECTIVENESS OF PAIN MANAGEMENT REGIMEN. SKILLED NURSE TO INSTRUCT PATIENT/CAREGIVER REGARDING PHARMACOLOGIC AND NON-PHARMACOLOGIC PAIN CONTROL MEASURES. SKILLED NURSE TO REPORT TO PHYSICIAN IF PAIN LEVEL IS OUTSIDE OF ESTABLISHED PARAMETERS. PATIENT MAY USE ICE APPLICATION 20 MINS/HR FOR PAIN/EDEMA MANAGEMENT.] Future Scheduled Test SKILLED NU RSE TO ASSESS PATIENT'S SKIN INTEGRITY AND INSTRUCT PATIENT/CAREGIVER ON MEASURES TO PREVENT PRESSURE ULCERS. [code = SKILLED NURSE TO ASSESS PATIENT'S SKIN INTEGRITY AND INSTRUCT PATIENT/CAREGIVER ON MEASURES TO PREVENT PRESSURE ULCERS.] Future Scheduled Test SKILLED NU RSE TO PROVIDE ASSESSMENT AND TEACHING/REINFORCEMENT OF MANAGEMENT OF DEPRESSION INCLUDING DISEASE PROCESS, MEDICATION MANAGEMENT, COPING SKILLS AND IDENTIFY CHANGES ASSOCIATED WITH DEPRESSIVE DISORDERS FOR EARLY INTERVENTION. [code = SKILLED NURSE TO PROVIDE ASSESSMENT AND TEACHING/REINFORCEMENT OF MANAGEMENT OF DEPRESSION INCLUDING DISEASE PROCESS, MEDICATION MANAGEMENT, COPING SKILLS AND IDENTIFY CHANGES ASSOCIATED WITH DEPRESSIVE DISORDERS FOR EARLY INTERVENTION.] Future Scheduled Test SKILLED NU RSE TO REVIEW PATIENT MEDICATIONS (PRESCRIPTION/OTC). INSTRUCT PATIENT/CAREGIVER ON ALL MEDICATIONS INCLUDING PURPOSE, WHEN TO TAKE, IMPORTANCE OF MEDICATION ADHERENCE, MONITORING OF EFFECTIVENESS, ADVERSE DRUG REACTIONS, POSSIBLE SIDE EFFECTS, AND WHEN TO NOTIFY AGENCY OR PHYSICIAN/PROVIDER OF ANY CONCERNS. [code = SKILLED NURSE TO REVIEW PATIENT MEDICATIONS (PRESCRIPTION/OTC). INSTRUCT PATIENT/CAREGIVER ON ALL MEDICATIONS INCLUDING PURPOSE, WHEN TO TAKE, IMPORTANCE OF MEDICATION ADHERENCE, MONITORING OF EFFECTIVENESS, ADVERSE DRUG REACTIONS, POSSIBLE SIDE EFFECTS, AND WHEN TO NOTIFY AGENCY OR PHYSICIAN/PROVIDER OF ANY CONCERNS.] Future Scheduled Test OCCUPATION AL THERAPY TO EVALUATE AND TREAT. OCCUPATIONAL THERAPY EVALUATION COMPLETED. NO ADDITIONAL VISITS RECOMMENDED AT THIS TIME. [code = OCCUPATIONAL THERAPY TO EVALUATE AND TREAT. OCCUPATIONAL THERAPY EVALUATION COMPLETED. NO ADDITIONAL VISITS RECOMMENDED AT THIS TIME. ] Future Scheduled Test PHYSICAL T HERAPY TO EVALUATE AND TREAT. PHYSICAL THERAPY EVALUATION PERFORMED. NO ADDITIONAL VISITS REQUIRED. [code = PHYSICAL THERAPY TO EVALUATE AND TREAT. PHYSICAL THERAPY EVALUATION PERFORMED. NO ADDITIONAL VISITS REQUIRED. ] Goal Patient Goal - T O LEARN IV ANTIBIOTIC ADMINISTRATION Goal Provider Goal - A PLAN OF CARE WILL BE ESTABLISHED THAT MEETS PATIENT'S NURSING HOME NEEDS AND INCLUDES PATIENT GOAL FOR HOME HEALTH. Goal Provider Goal - ADDITIONAL ORDERS WILL BE RECEIVED FROM ALTERNATE PHYSICIAN IN A TIMELY MANNER THROUGHOUT THE CERTIFICATION PERIOD. Goal Provider Goal - OCCUPATIONAL THERAPY EVALUATION TO BE COMPLETED WITH RECOMMENDATIONS AND WRITTEN PLAN OF TREATMENT ESTABLISHED FOR THE PHYSICIANS SIGNATURE. Goal Provider Goal - PATIENT/CAREGIVER WILL VERBALIZE/DEMONSTRATE UNDERSTANDING OF S/S OF INFECTION AND INFECTION CONTROL MEASURES. SIGNS AND SYMPTOMS OF INFECTION WILL BE IDENTIFIED AND PHYSICIAN NOTIFIED FOR PROMPT INTERVENTION THROUGHOUT THE CERTIFICATION PERIOD. Goal Provider Goal - WOUND CARE WILL BE COMPLETED AND PATIENT WILL HAVE IMPROVED WOUND STATUS EVIDENCED BY NO SIGNS AND SYMPTOMS OF INFECTION, DECREASED WOUND SIZE, AND/OR NO COMPLICATIONS BY THE END OF THE CERTIFICATION PERIOD. Goal Provider Goal - A PHYSICAL THERAPY EVALUATION TO BE COMPLETED WITH RECOMMENDATIONS AND/OR WRITTEN PLAN OF TREATMENT ESTABLISHED FOR PHYSICIANS SIGNATURE. Goal Provider Goal - PATIENT/CAREGIVER WILL VERBALIZE UNDERSTANDING OF SIGNS AND SYMPTOMS, COMPLICATIONS, AND MANAGEMENT OF ATRIAL FIBRILLATION THROUGHOUT THE CERTIFICATION PERIOD. Goal Provider Goal - PATIENT/CAREGIVER WILL VERBALIZE SIGNS AND SYMPTOMS OF HYPERTENSION AND WILL BE ABLE TO DEMONSTRATE ABILITY TO MANAGE EXACERBATION BY END OF THE EPISODE. Goal Provider Goal - PATIENT/CAREGIVER WILL VERBALIZE/DEMONSTRATE UNDERSTANDING OF TEACHING RELATED TO INFECTION/INFLAMMATION D/T RIGHT KNEE PROSTHESIS BY END OF CERTIFICATION PERIOD. Goal Provider Goal - PATIENT WILL BE FREE FROM INFECTION AND PATIENT/CAREGIVER WILL VERBALIZE UNDERSTANDING OF SIGNS AND SYMPTOMS AND METHODS TO PREVENT SEPSIS BY END OF THE EPISODE. Goal Provider Goal - PATIENT WILL VERBALIZE/DEMONSTRATE TOLERANCE TO CENTRAL LINE ACCESS PROCEDURE, IV MEDICATION ADMINISTRATION, AND DRESSING CHANGES ORDERED THROUGH CERTIFICATION PERIOD. Goal Provider Goal - SKILLED NURSE TO PERFORM LAB PROCEDURE AND REPORT RESULTS TO PHYSICIAN. Goal Provider Goal - PATIENT/CAREGIVER WILL VERBALIZE UNDERSTANDING OF MUSCULOSKELETAL DISEASE INCLUDING SIGNS AND SYMPTOMS, MANAGEMENT, AND PRESCRIBED TREATMENT REGIMEN BY END OF EPISODE. Goal Provider Goal - PATIENT WILL HAVE SUPPORT MEASURES ESTABLISHED TO PREVENT HOSPITALIZATION AND ED USE AND PATIENT/CAREGIVER WILL VERBALIZE/DEMONSTRATE METHODS TO REDUCE AVOIDABLE HOSPITALIZATION AND ED USE BY END OF EPISODE. Goal Provider Goal - PATIENT/CAREGIVER WILL VERBALIZE UNDERSTANDING OF DISCHARGE PLANNING INSTRUCTIONS BY DATE OF DISCHARGE. Goal Provider Goal - PATIENT/CAREGIVER WILL VERBALIZE/DEMONSTRATE EFFECTIVE ENVIRONMENTAL SAFETY AND FALL PREVENTION STRATEGIES, WILL REMAIN SAFE IN THE COMMUNITY, AND WILL BE FREE OF DANGER TO SELF AND OTHERS THROUGHOUT THE CERTIFICATION PERIOD. Goal Provider Goal - PATIENT/CAREGIVER WILL DEMONSTRATE UNDERSTANDING OF PHARMACOLOGIC AND NONPHARMACOLOGIC PAIN CONTROL MEASURES AND PATIENT WILL HAVE IMPROVEMENT IN PAIN INTERFERING WITH ACTIVITY EVIDENCED BY PAIN AT A LEVEL THAT IS ACCEPTABLE TO THE PATIENT AND PAIN LEVEL WITHIN ESTABLISHED PARAMETERS BY END OF CERTIFICATION PERIOD. Goal Provider Goal - PATIENT/CAREGIVER WILL VERBALIZE UNDERSTANDING OF PRESSURE ULCER PREVENTION BY END OF THE EPISODE. Goal Provider Goal - PATIENT/CAREGIVER WILL VERBALIZE/DEMONSTRATE UNDERSTANDING OF THE MANAGEMENT OF DEPRESSION THROUGHOUT THE CERTIFICATION PERIOD AND SYMPTOMS ARE IDENTIFIED AND MANAGED TO MAINTAIN PATIENT SAFETY IN THE HOME. Goal Provider Goal - PATIENT/CAREGIVER WILL VERBALIZE UNDERSTANDING OF EDUCATION PROVIDED ON MEDICATIONS BY THE END OF THE CERTIFICATION PERIOD. Goal Provider Goal - NO FURTHER SKILLED OT SERVICES ARE WARRANTED AT THIS TIME Goal Provider Goal - NONE Progress Notes Progress Notes <paragraph>[Visit Date: 2024 by KERWIN STAHL RN]:</paragraph><paragraph>PT SEEN 04/10/25 FOR SKILLED NURSE VISIT FOR LABS. PATIENT WAS SITTING IN RECLINER WHEN NURSE ENTERED THE HOME. PATIENT ALERT AND ORIENTED X3. VITALS OBTAINED AND ALL WITHIN NORMAL LIMITS. LUNGS CLEAR BILATERALLY. HEART RATE AND RHYTHM REGULAR. BOWEL SOUNDS PRESENT ALL 4 QUADS. PATIENT REPORTS LAST BM TODAY. PATIENT DENIES ANY SIGNS AND SYMPTOMS OF UTI. PATIENT DENIES PAIN AT THIS TIME. PATIENT AMBULATING IN THE HOME WITH USE OF WHEELED WALKER. PATIENT DENIES FALLS, OR EMERGENT CARE. NO SIGNS AND SYMPTOMS OF INFECTION. NO EDEMA NOTED. LEFT UPPER ARM PICC LINE DOUBLE-LUMEN PATENT AND INTACT. BLOOD DRAWN FROM PICC LINE PER ORDERS. PATIENT TOLERATED PROCEDURE WELL. EDUCATION PROVIDED REGARDING SIGNS AND SYMPTOMS OF INFECTION, MEDICATIONS, FALL PREVENTION, DISEASE PROCESSES, AND IV MEDICATION ADMINISTRATION. PATIENT VOICES UNDERSTANDING. PATIENT HAS FRIENDS THAT DO ALL THE IV MEDICATIONS FOR HER. REVIEWED WITH PATIENT TO CALL [facility] FIRST WITH ANY ISSUES OR CONCERNS AND PATIENT VOICES UNDERSTANDING.</paragraph> Encounters Start Date/Time End Date/Time Encounter Type Admission Type Attending [facility] Care Facility Care Department Encounter ID Discharge Date Discharge Status Discharge Condition Discharge Reason Percent Goals Met 2025-03-27 00:00:00 2025-05-25 00:00:00 Outpatient NEW ADMISSION [facility]OGDAN [facility]SE[facility] [id number] 54.29
--- OUTSIDE RECORDS SUMMARY | 2025-04-14 08:06 | XMS_ITS | Encounter Summary ---
Author Organization [employer] Address [address] [place] [address] Care Team Providers Care Disc Recordist Name Role Phone Mt Cortes MD Primary Care Provider [phone] Encounter Details Date Type Department Care Team (Late st Contact Info) Description 08/23/2004 Outpatient [facility] [address] [place] [address] 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
--- OUTSIDE RECORDS SUMMARY | 2025-04-14 08:06 | XMS_ITS | Clinical Summary ---
Author Organization Unknown Care Team Providers Care Chief Psychology Name Role Phone MARY VILLALOBOS Unavailable Unavailable AJITH GAMBLE, BOGDAN Unavailable Unavailable Payers Payer Name Policy Type Policy Number Effective Date Expira tion Date MEDICARE - [place] [facility] [id number] Problems Condition Name Condition Details Condition Category [...] THE FOLLOWING PHYSICIANS: ROSARIO EMERSON U ID, HEPATOLOGIST/TREATING PROVIDERS [code = HOME HEALTH AGENCY MAY ACCEPT ORDERS FROM THE FOLLOWING PHYSICIANS: ROSARIO EMERSON U ID, HEPATOLOGIST/TREATING PROVIDERS] Future Scheduled Test 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 [code = SKILLED NURSE TO OBTAIN BLOOD SPECIMEN VIA VENIPUNCTURE AND/OR CENTRAL LINE FOR CBC WITH DIFF, CMP, AND CPK WEEKLY ON TUESDAYS. OBTAIN CPK AGAIN WEEKLY ON THURSDAYS OR FRIDAYS. AT WEEK 3 6 (WEEK OF 03/29/25 AND 04/19/25), OBTAIN ESR AND CRP. DIAGNOSIS INFECTION/INFLAMMATION D/T RIGHT KNEE PROSTHESIS T84.53XA. OBTAIN LAB RESULTS AND FAX TO DR MARGOT SANTIZO, [facility] [phone] AND [facility] [phone].] Future Scheduled Test SKILLED NU RSE FOR [...] MAINTAIN SITUATIONAL AWARENESS AND WILL NOTIFY CLINICAL PATIENT CARRIER AND PHYSICIAN/PROVIDER WITH ANY CHANGE IN CONDITION. [...] MAINTAIN SITUATIONAL AWARENESS AND WILL NOTIFY CLINICAL PATIENT CARRIER AND PHYSICIAN/PROVIDER WITH ANY CHANGE IN CONDITION. [...] CARE WILL BE ESTABLISHED THAT MEETS PATIENT'S CORRECTION NEEDS AND INCLUDES PATIENT GOAL FOR HOME [...] End Date/Time Encounter Type Admission Type Attending [facility] Care Facility Care Department Encounter ID Discharge Date Discharge Status Discharge Condition Discharge Reason Percent Goals Met 2025-03-27 00:00:00 2025-05-25 00:00:00 Outpatient NEW ADMISSION [facility] [id number] 54.29
--- OUTSIDE RECORDS SUMMARY | 2025-04-14 08:06 | XMS_ITS | Encounter Summary ---
Author Organization [employer] Address [address] [place] [address] Care Team Providers Care Scientist/Engineer Name Role Phone Mt Cortes MD Primary Care Provider [phone] Encounter Details Date Type Department Care Team (Late st Contact Info) Description 06/27/2004 Outpatient Historical [facility] [address] [place] [id number] Mt Cortes MD [address] [place] [phone] Social History Tobacco Use Types Packs/Day Years Used Date Smoking Tobacco: Never Assessed Comments Unknown Sex and Gender Information Value Date Recorded Sex Assigned at Not on file 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
--- OUTSIDE RECORDS SUMMARY | 2025-04-14 08:06 | XMS_ITS | Encounter Summary ---
Author Organization [employer] Address [address] [place] [address] Care Team Providers Care Management Information Systems Director Name Role Phone Mt Cortes MD Primary Care Provider [phone] Encounter Details Date Type Department Care Team (Late st Contact Info) Description 03/18/2003 Outpatient Historical [facility] Internal Medicine [address] [place] [address] Mt Cortes MD [address] [place] [address] Social History Tobacco Use Types Packs/Day Years Used Date Smoking Tobacco: Never Assessed Comments Unknown Sex and Gender Information Value Date Recorded Sex Assigned at Not on file 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
--- OUTSIDE RECORDS SUMMARY | 2025-04-14 08:06 | XMS_ITS | Encounter Summary ---
Author Organization [employer] Address 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
--- OUTSIDE RECORDS SUMMARY | 2025-04-14 08:06 | XMS_ITS | Encounter Summary ---
Author Organization [employer] Address [address] [place] [address] Care Team Providers Care Breakfast Attendant Name Role Phone Mt Cortes MD Primary Care Provider [phone] Encounter Details Date Type Department Care Team (Late st Contact Info) Description 01/09/2005 Outpatient [facility] [address] [place] [address] 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
[2025-04-14 08:22] LABS: Hematocrit 25.8 % (35.0-42.0); Hemoglobin 8.0 g/dL (11.7-13.8); Mean Corpuscular HGB Conc 31.0 g/dL (32-36); Mean Corpuscular Hemoglobin 25.6 pg (27.0-31.0); Mean Corpuscular Volume 82.4 fL (78.0-102.0); Platelet Count Result 246 K/mm3 (150-420); Red Blood Count 3.13 M/mm3 (4.20-5.40); White Blood Count 6.1 K/mm3 (4.8-10.8)
[2025-04-14 08:37] LABS: Alanine Aminotransferase 15 U/L (6-35); Albumin Level 3.4 g/dL (3.5-5.1); Alkaline Phosphatase 120 U/L (38-126); Anion Gap 5 mmol/L (4-12); Aspartate Amino Transferase 26 U/L (14-36); Bilirubin,Total 0.5 mg/dL (0.2-1.3); Blood Urea Nitrogen 8 mg/dL (7-17); Calcium 8.4 mg/dL (8.4-10.2); Carbon Dioxide 27 mmol/L (22-30); Chloride 107 mmol/L (98-107); Creatine Kinase 87 U/L (30-135); Estimated Glomerular Filt Rate > 60; Glucose 94 mg/dL (65-110); Osmolality Calculated 286 mOsm/kg (285-295); Potassium 3.4 mmol/L (3.4-5.0); Sodium 139 mmol/L (137-145); Total Protein 6.4 g/dL (6.3-8.2)
== END 2025-04-14 07:55 | disposition home or self-care (01) ==
DX: T84.53XA Infection and inflammatory reaction due to internal right knee prosthesis, initial encounter (principal)
CPT/HCPCS: 80053; 82550; 85027

== ENCOUNTER 2025-04-17 07:48 | Outpatient (NON) | payer MEDICARE, SELFPAY ==
--- OUTSIDE RECORDS SUMMARY | 2025-04-17 07:56 | XMS_ITS | Encounter Summary ---
Author Organization [employer] Address [address] [place] [address] Care Team Providers Care Loan Auditor Name Role Phone Mt Cortes MD Primary Care Provider Encounter Details Date Type Department Care Team (Late st Contact Info) Description 08/28/2002 Outpatient [facility] [address] [place] [address] 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
--- OUTSIDE RECORDS SUMMARY | 2025-04-17 07:56 | XMS_ITS | Clinical Summary ---
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, W STG 1-4/UNSP CHR KDNY Active 09-24 00:00: 00 CHRONIC KIDNEY DISEASE, UNSPECIFIED Active 09-24 00:00: 00 ANEMIA IN CHRONIC KIDNEY DISEASE Active 09-24 00:00: 00 POLYNEUROPAT HY, UNSPECIFIED Active 09-24 00:00: 00 MORBID (SEVERE) OBESITY DUE TO EXCESS CALORIES Active 09-24 00:00: 00 BODY MASS INDEX [BMI]40.0-44 .9, ADULT Active 09-24 00:00: 00 PURE HYPERCHOLEST EROLEMIA, UNSPECIFIED Active 09-24 00:00: 00 MODERATE PERSISTENT ASTHMA, UNCOMPLICATE D Active 09-24 00:00: 00 UNSPECIFIED OSTEOARTHRIT IS, UNSPECIFIED SITE Active 09-24 00:00: 00 RADICULOPATH Y, LUMBAR REGION Active 09-24 00:00: 00 RESTLESS LEGS SYNDROME Active 09-24 00:00: 00 GASTRO-ESOPH AGEAL REFLUX DISEASE WITHOUT ESOPHAGITIS Active 09-24 00:00: 00 DYSPHAGIA, UNSPECIFIED Active 09-24 00:00: 00 DEPRESSION, UNSPECIFIED Active 09-24 00:00: 00 MANAGER SIGN (CURRENT) USE OF ANTICOAGULAN TS Active 09-24 00:00: 00 MANAGER SIGN (CURRENT) USE OF INHALED STEROIDS Active 09-24 00:00: 00 Problems related to health literacy Active 09-24 00:00: 00 ACQUIRED ABSENCE OF OTHER SPECIFIED PARTS OF DIGESTIVE TRACT Active 09-24 00:00: 00 CATARACT EXTRACTION STATUS, UNSPECIFIED EYE Active 09-24 00:00: 00 ENCOUNTER FOR ADJUSTMENT AND MANAGEMENT OF VAD Active 09-24 00:00: 00 MANAGER SIGN (CURRENT) USE OF ANTIBIOTICS Active 09-24 00:00: 00 Allergies, Adverse Reactions, Alerts Allergy Name Allergy Type Status Severity Reaction(s) Onset Date Inactive Date Treating Clinician Comments NKA Propensity to adverse reactions Active 2025-03 16:25:2 8 Medications Ordered Medication Name Filled Medication Name Start Date Stop Date Current Medication? Ordering Clinician Indication Dosage Frequency Signature (SIG) Comments Components albuterol sulfate 1.25 mg/3 mL solution for nebulizatio n 03-27 00:00: 00 Yes [id number] 3 mL EVERY 6 HOURS 3 mL EVERY 6 HOURS (route: inhalation ) Med Classific ation: Respirato ry Therapy Agents albuterol sulfate HFA 90 mcg/actuati on aerosol inhaler 03-27 00:00: 00 Yes [id number] 2 puff EVERY 4 HOURS 2 puff EVERY 4 HOURS (route: inhalation ) Med Classific ation: Respirato ry Therapy Agents benzonatate 200 mg capsule 03-27 00:00: 00 Yes [id number] 1 capsule EVERY 8 HOURS 1 capsule EVERY 8 HOURS (route: oral) Med Classific ation: Respirato ry Therapy Agents ceftriaxone 2 gram solution for injection 03-27 00:00: 00 Yes [id number] 2 g DAILY 2 g DAILY (route: injection) Med Classific ation: Anti-Infe ctive Agents cetirizine 10 mg tablet 03-27 00:00: 00 Yes [id number] 1 tablet DAILY 1 tablet DAILY (route: oral) Med Classific ation: Respirato ry Therapy Agents Chlorasepti c Sore Throat 6 mg-10 mg lozenges 03-27 00:00: 00 Yes [id number] 1 lozenge EVERY 4 HOURS 1 lozenge EVERY 4 HOURS (route: mucous membrane) Med Classific ation: Mouth-Thr oat-Denta l - Preparati ons cyclobenzap rine 10 mg tablet 03-27 00:00: 00 Yes [id number] 1 tablet EVERY 8 HOURS 1 tablet EVERY 8 HOURS (route: oral) Med Classific ation: Locomotor System daptomycin 500 mg intravenous solution 03-27 00:00: 00 Yes [id number] 600 mg DAILY 600 mg DAILY (route: intravenou s) Med Classific ation: Anti-Infe ctive Agents diltiazem 120 mg tablet 03-27 00:00: 00 Yes [id number] 1 tablet DAILY 1 tablet DAILY (route: oral) Med Classific ation: Cardiovas cular Therapy Agents Eliquis 5 mg tablet 03-27 00:00: 00 Yes [id number] 1 tablet 2 TIMES DAILY 1 tablet 2 TIMES DAILY (route: oral) Med Classific ation: Hematolog ical Agents ergocalcife rol (vitamin D2) 1,250 mcg (50,000 unit) capsule 03-27 00:00: 00 Yes [id number] 1 capsule WEEKLY 1 capsule WEEKLY (route: oral) Med Classific ation: Electroly te Balance-N utritiona l Products escitalopra m 20 mg tablet 03-27 00:00: 00 Yes [id number] 1 tablet BEDTIME 1 tablet BEDTIME (route: oral) Med Classific ation: Central Nervous System Agents ezetimibe 10 mg tablet 03-27 00:00: 00 Yes [id number] 1 tablet DAILY 1 tablet DAILY (route: oral) Med Classific ation: Cardiovas cular Therapy Agents Flonase Allergy Relief 50 mcg/actuati on nasal spray,suspe nsion 03-27 00:00: 00 Yes [id number] 1 spray DAILY 1 spray DAILY (route: nasal) Med Classific ation: Respirato ry Therapy Agents furosemide 20 mg tablet 03-27 00:00: 00 Yes [id number] 1 tablet 2 TIMES DAILY 1 tablet 2 TIMES DAILY (route: oral) Med Classific ation: Cardiovas cular Therapy Agents gabapentin 100 mg capsule 03-27 00:00: 00 Yes [id number] 1 capsule EVERY AM 1 capsule EVERY AM (route: oral) Med Classific ation: Central Nervous System Agents gabapentin 300 mg capsule 03-27 00:00: 00 Yes [id number] 1 capsule BEDTIME 1 capsule BEDTIME (route: oral) Med Classific ation: Central Nervous System Agents Heparin Lock Flush (Porcine) (PF) 10 unit/mL intravenous syringe 03-27 00:00: 00 Yes [id number] 5 mL DIRECTED 5 mL DIRECTED (route: intravenou s) Med Classific ation: Hematolog ical Agents ipratropium bromide 42 mcg (0.06 %) nasal spray 03-27 00:00: 00 Yes [id number] 2 spray 3 TIMES DAILY 2 spray 3 TIMES DAILY (route: nasal) Med Classific ation: Respirato ry Therapy Agents Linzess 72 mcg capsule 03-27 00:00: 00 Yes [id number] 1 capsule DAILY 1 capsule DAILY (route: oral) Med Classific ation: Gastroint estinal Therapy Agents montelukast 10 mg tablet 03-27 00:00: 00 Yes [id number] 1 tablet BEDTIME 1 tablet BEDTIME (route: oral) Med Classific ation: Respirato ry Therapy Agents Multaq 400 mg tablet 03-27 00:00: 00 Yes [id number] 1 tablet 2 TIMES DAILY 1 tablet 2 TIMES DAILY (route: oral) Med Classific ation: Cardiovas cular Therapy Agents Normal Saline Flush 0.9 % injection syringe 03-27 00:00: 00 Yes [id number] 10-20 mL DIRECTED 10-20 mL DIRECTED (route: injection) Med Classific ation: Electroly te Balance-N utritiona l Products omeprazole 40 mg capsule,del ayed release 03-27 00:00: 00 Yes [id number] 1 capsule DAILY 1 capsule DAILY (route: oral) Med Classific ation: Gastroint estinal Therapy Agents oxycodone 5 mg tablet 03-27 00:00: 00 Yes [id number] 1 tablet EVERY 4 HOURS 1 tablet EVERY 4 HOURS (route: oral) Med Classific ation: Analgesic , Anti-infl ammatory or Antipyret ic potassium chloride ER 10 mEq capsule,ext ended release 03-27 00:00: 00 Yes [id number] 1 capsule DAILY 1 capsule DAILY (route: oral) Med Classific ation: Electroly te Balance-N utritiona l Products ropinirole 1 mg tablet 03-27 00:00: 00 Yes [id number] 2 tablet BEDTIME 2 tablet BEDTIME (route: oral) Med Classific ation: Central Nervous System Agents rosuvastati n 10 mg tablet 03-27 00:00: 00 Yes [id number] 1 tablet BEDTIME 1 tablet BEDTIME (route: oral) Med Classific ation: Cardiovas cular Therapy Agents Senna Plus 8.6 mg-50 mg capsule 03-27 00:00: 00 Yes [id number] 2 capsule 2 TIMES DAILY 2 capsule 2 TIMES DAILY (route: oral) Med Classific ation: Gastroint estinal Therapy Agents tramadol 50 mg tablet 03-27 00:00: 00 Yes [id number] 2 tablet EVERY 6 HOURS 2 tablet EVERY 6 HOURS (route: oral) Med Classific ation: Analgesic , Anti-infl ammatory or Antipyret ic Trelegy Ellipta 200 mcg-62.5 mcg-25 mcg powder for inhalation 03-27 00:00: 00 Yes [id number] 1 inhalat ion DAILY 1 inhalation DAILY (route: inhalation ) Med Classific ation: Respirato ry Therapy Agents triamcinolo ne acetonide 0.1 % topical cream 03-27 00:00: 00 Yes [id number] 1 cm DAILY 1 cm RENE Y (route: topical) Med Classific ation: Dermatolo gical Tylenol Extra Strength 500 mg tablet 03-27 00:00: 00 Yes [id number] 1 tablet 3 TIMES DAILY 1 tablet 3 TIMES DAILY (route: oral) Med Classific ation: Analgesic , Anti-infl ammatory or Antipyret ic Vitamin B-12 1,000 mcg tablet 03-27 00:00: 00 Yes [id number] 2 tablet DAILY 2 tablet DAILY (route: oral) Med Classific ation: Electroly te Balance-N utritiona l Products Vitamin D3 25 mcg (1,000 unit) capsule 03-27 00:00: 00 Yes [id number] 1 capsule DAILY 1 capsule DAILY (route: oral) Med Classific ation: Electroly te Balance-N utritiona l Products Wellbutrin XL 300 mg 24 hr tablet, extended release 03-27 00:00: 00 Yes [id number] 1 tablet DAILY 1 tablet DAILY (route: oral) Med Classific ation: Central Nervous System Agents Immunizations Ordered Immunization Name Filled Immunization Name Date Status Comments Refusal Reason COVID-19, COVID-19 2024-07-23 00:00:00 PNEUMOCOCCAL (PPV), PPV 2024-03-25 00:00:00 Vital Signs Vital Name Observation Time Observation Value Commen ts Temperature 2025-04-14 07:06:00.000 97 [degF] Temperature 2025-04-10 13:45:00.000 97.2 [degF] Temperature 2025-04-07 06:54:00.000 97.1 [degF] Temperature 2025-04-03 07:22:00.000 97 [degF] Temperature 2025-03-31 15:14:00.000 97 [degF] Temperature 2025-03-31 14:12:00.000 97.8 [degF] Temperature 2025-03-31 10:48:00.000 97.6 [degF] Temperature 2025-03-27 13:44:00.000 97.3 [degF] BMI (%) 2025-03-29 00:13:55.000 42 kg/m2 Height 2025-03-28 23:42:10.000 63 [in_us] Pulse 2025-04-14 07:06:00.000 70 /min Pulse 2025-04-10 13:45:00.000 72 /min Pulse 2025-04-07 06:54:00.000 70 /min Pulse 2025-04-03 07:22:00.000 76 /min Pulse 2025-03-31 15:14:00.000 70 /min Pulse 2025-03-31 14:12:00.000 73 /min Pulse 2025-03-31 10:48:00.000 78 /min Pulse 2025-03-27 13:44:00.000 73 /min O2 Saturation (%) 2025-04-14 07:06:00.000 96 % O2 Saturation (%) 2025-04-10 13:45:00.000 98 % O2 Saturation (%) 2025-04-07 06:54:00.000 95 % O2 Saturation (%) 2025-04-03 07:22:00.000 98 % O2 Saturation (%) 2025-03-31 15:14:00.000 98 % O2 Saturation (%) 2025-03-31 14:12:00.000 96 % O2 Saturation (%) 2025-03-31 10:49:00.000 96 % O2 Saturation (%) 2025-03-27 13:44:00.000 97 % Respirations 2025-04-14 07:06:00.000 18 /min Respirations 2025-04-10 13:45:00.000 16 /min Respirations 2025-04-07 06:54:00.000 16 /min Respirations 2025-04-03 07:22:00.000 18 /min Respirations 2025-03-31 15:14:00.000 18 /min Respirations 2025-03-31 14:12:00.000 18 /min Respirations 2025-03-31 10:50:00.000 18 /min Respirations 2025-03-27 13:44:00.000 18 /min Weight (lbs) 2025-03-29 00:13:55.000 241 [lb_av] Systolic Blood Pressure 2025-04-14 07:06:00.000 142 mm [Hg] Systolic Blood Pressure 2025-04-10 13:45:00.000 128 mm [Hg] Systolic Blood Pressure 2025-04-07 06:54:00.000 130 mm [Hg] Systolic Blood Pressure 2025-04-03 07:22:00.000 142 mm [Hg] Systolic Blood Pressure 2025-03-31 15:14:00.000 138 mm [Hg] Systolic Blood Pressure 2025-03-31 14:12:00.000 132 mm [Hg] Systolic Blood Pressure 2025-03-31 10:48:00.000 121 mm [Hg] Systolic Blood Pressure 2025-03-27 13:44:00.000 132 mm [Hg] Diastolic Blood Pressure 2025-04-14 07:06:00.000 78 mm [Hg] Diastolic Blood Pressure 2025-04-10 13:45:00.000 [...] MAY ACCEPT ORDERS FROM THE FOLLOWING PHYSICIANS: DR MARGOT SANTIZO [facility], AIR CONDITIONING INSTALLER SUPERVISOR/TREATING PROVIDERS [code = HOME HEALTH AGENCY MAY ACCEPT ORDERS FROM THE FOLLOWING PHYSICIANS: DR MARGOT SANTIZO [facility], AIR CONDITIONING INSTALLER SUPERVISOR/TREATING PROVIDERS] Future Scheduled Test OCCUPATION AL THERAPIST [...] RESULTS AND FAX TO DR MARGOT SANTIZO, [facility] [phone] AND [facility] [phone]. [code = SKILLED NURSE TO OBTAIN BLOOD SPECIMEN VIA VENIPUNCTURE AND/OR CENTRAL LINE FOR CBC WITH DIFF, CMP, AND CPK WEEKLY ON TUESDAYS. OBTAIN CPK AGAIN WEEKLY ON THURSDAYS OR FRIDAYS. AT WEEK 3 6 (WEEK OF 03/29/25 AND 04/19/25), OBTAIN ESR AND CRP. DIAGNOSIS INFECTION/INFLAMMATION D/T RIGHT KNEE PROSTHESIS T84.53XA. OBTAIN LAB RESULTS AND FAX TO DR MARGOT SANTIZO, [facility] [phone] AND [facility] [phone].] Future Scheduled Test SKILLED NU RSE FOR [...] MAINTAIN SITUATIONAL AWARENESS AND WILL NOTIFY CLINICAL SEISMIC PROSPECTING SUPERVISOR AND PHYSICIAN/PROVIDER WITH ANY CHANGE IN CONDITION. [...] MAINTAIN SITUATIONAL AWARENESS AND WILL NOTIFY CLINICAL SEISMIC PROSPECTING SUPERVISOR AND PHYSICIAN/PROVIDER WITH ANY CHANGE IN CONDITION. [...] CARE WILL BE ESTABLISHED THAT MEETS PATIENT'S DETENTION NEEDS AND INCLUDES PATIENT GOAL FOR HOME [...] Notes Progress Notes <paragraph>[Visit Date: 2024 by BOGDAN CANSECO RN]:</paragraph><paragraph>PATIENT SEEN TODAY FOR ROUTINE NURSE VISIT WITH PICC LINE DRESSING AND CAPS CHANGE AND WEEKLY LAB DRAW. PATIENT WAS SITTING IN CHAIR IN LIVING ROOM WHEN NURSE ARRIVED. PATIENT IS ALERT AND ORIENTED X3. PATIENT DENIES FALLS, MED CHANGES, OR EMERGENT CARE SINCE LAST NURSE VISIT. PATIENT STATES SHE HAS FOLLOW UP APPT WITH INFECTIOUS DISEASE MD ON SUNDAY AND HOPES TO BE DONE WITH ANTIBIOTICS THAT DAY. VITALS OBTAINED AND ALL WITHIN NORMAL LIMITS. LUNGS CLEAR BILATERALLY. HEART RHYTHM REGULAR. BOWEL SOUNDS PRESENT ALL 4 QUADS. PATIENT DENIES ANY ISSUES WITH URINATION INCLUDING BURNING, FREQUENCY, OR URGENCY. PATIENT REPORTS LAST BM TODAY. PATIENT DENIES ANY PAIN. RIGHT KNEE SCAR OPEN TO AIR. PATIENT HAS KNEE BRACE ON. PATIENT USING WHEELED WALKER TO AMBULATE IN HOME. PATIENT HAS LEFT UPPER ARM DUAL LUMEN PICC LINE THAT IS PATENT. BLOOD DRAWN PER ORDERS USING STERILE TECHNIQUE. PATIENT TOLERATED WELL. DRESSING CHANGED AND CAPS CHANGED TO LEFT UPPER ARM PICC LINE USING STERILE TECHNIQUE AND PATIENT TOLERATED WELL. EDUCATION PROVIDED REGARDING MEDICATIONS INCLUDING IV ADMINISTRATION OF ANTIBIOTICS AND PATIENT VOICES UNDERSTANDING. SHE HAS FRIENDS THAT COME DO THE IV ANTIBIOTICS FOR HER AND STATES THEY ARE ALL DOING FINE WITH IT. EDUCATION PROVIDED REGARDING FALL PREVENTION AND PATIENT VOICES UNDERSTANDING. REVIEWED PLAN FOR NEXT VISIT LATER THIS WEEK FOR LAB DRAW BY NURSE AND PATIENT AGREEABLE. REVIEWED WITH PATIENT TO CALL [facility] FIRST WITH ANY ISSUES OR CONCERNS AND SHE VOICES UNDERSTANDING.</paragraph> Encounters Start Date/Time End Date/Time Encounter Type Admission Type Attending [facility] Care Department Encounter ID Discharge Date Discharge Status Discharge Condition Discharge Reason Percent Goals Met 2025-03-27 00:00:00 2025-05-25 00:00:00 Outpatient NEW ADMISSION BOGDAN CANSECO [facility] [id number] 69.44
--- OUTSIDE RECORDS SUMMARY | 2025-04-17 07:56 | XMS_ITS | Encounter Summary ---
Author Organization [facility] Address 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
--- OUTSIDE RECORDS SUMMARY | 2025-04-17 07:56 | XMS_ITS | Encounter Summary ---
Author Organization [employer] Address [address] [place] [address] Care Team Providers Care Sld Educational Aide Name Role Phone Mt Cortes MD Primary Care Provider [phone] Encounter Details Date Type Department Care Team (Late st Contact Info) Description 10/03/2002 Outpatient [facility] [address] [place] [address] 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
--- OUTSIDE RECORDS SUMMARY | 2025-04-17 07:56 | XMS_ITS | Clinical Summary ---
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 STEROIDS Active 09-24 00:00: 00 Problems related to health literacy Active 09-24 00:00: 00 ACQUIRED ABSENCE OF OTHER SPECIFIED PARTS OF DIGESTIVE TRACT Active 09-24 00:00: 00 CATARACT EXTRACTION STATUS, UNSPECIFIED EYE Active 09-24 00:00: 00 ENCOUNTER FOR ADJUSTMENT AND MANAGEMENT OF VAD Active 09-24 00:00: 00 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 Active 09-24 00:00: [...] for nebulizatio n 03-27 00:00: 00 Yes [id number] 3 mL EVERY 6 HOURS 3 mL EVERY 6 HOURS (route: inhalation ) Med Classific ation: Respirato ry Therapy Agents albuterol sulfate HFA 90 mcg/actuati on aerosol inhaler 03-27 00:00: 00 Yes [id number] 2 puff EVERY 4 HOURS 2 puff EVERY 4 HOURS (route: inhalation ) Med Classific ation: Respirato ry Therapy Agents benzonatate 200 mg capsule 03-27 00:00: 00 Yes [id number] 1 capsule EVERY 8 HOURS 1 capsule EVERY 8 HOURS (route: oral) Med Classific ation: Respirato ry Therapy Agents ceftriaxone 2 gram solution for injection 03-27 00:00: 00 Yes [id number] 2 g DAILY 2 g DAILY (route: injection) Med Classific ation: Anti-Infe ctive Agents cetirizine 10 mg tablet 03-27 00:00: 00 Yes [id number] 1 tablet DAILY 1 tablet DAILY (route: oral) Med Classific ation: Respirato ry Therapy Agents Chlorasepti c Sore Throat 6 mg-10 mg lozenges 03-27 00:00: 00 Yes [id number] 1 lozenge EVERY 4 HOURS 1 lozenge EVERY 4 HOURS (route: mucous membrane) Med Classific ation: Mouth-Thr oat-Denta l - Preparati ons cyclobenzap rine 10 mg tablet 03-27 00:00: 00 Yes [id number] 1 tablet EVERY 8 HOURS 1 tablet EVERY 8 HOURS (route: oral) Med Classific ation: Locomotor System daptomycin 500 mg intravenous solution 03-27 00:00: 00 Yes [id number] 600 mg DAILY 600 mg DAILY (route: intravenou s) Med Classific ation: Anti-Infe ctive Agents diltiazem 120 mg tablet 03-27 00:00: 00 Yes [id number] 1 tablet DAILY 1 tablet DAILY (route: oral) Med Classific ation: Cardiovas cular Therapy Agents Eliquis 5 mg tablet 03-27 00:00: 00 Yes [id number] 1 tablet 2 TIMES DAILY 1 tablet 2 TIMES DAILY (route: oral) Med Classific ation: Hematolog ical Agents ergocalcife rol (vitamin D2) 1,250 mcg (50,000 unit) capsule 03-27 00:00: 00 Yes [id number] 1 capsule WEEKLY 1 capsule WEEKLY (route: oral) Med Classific ation: Electroly te Balance-N utritiona l Products escitalopra m 20 mg tablet 03-27 00:00: 00 Yes [id number] 1 tablet BEDTIME 1 tablet BEDTIME (route: oral) Med Classific ation: Central Nervous System Agents ezetimibe 10 mg tablet 03-27 00:00: 00 Yes [id number] 1 tablet DAILY 1 tablet DAILY (route: oral) Med Classific ation: Cardiovas cular Therapy Agents Flonase Allergy Relief 50 mcg/actuati on nasal spray,suspe nsion 03-27 00:00: 00 Yes [id number] 1 spray DAILY 1 spray DAILY (route: nasal) Med Classific ation: Respirato ry Therapy Agents furosemide 20 mg tablet 03-27 00:00: 00 Yes [id number] 1 tablet 2 TIMES DAILY 1 tablet 2 TIMES DAILY (route: oral) Med Classific ation: Cardiovas cular Therapy Agents gabapentin 100 mg capsule 03-27 00:00: 00 Yes [id number] 1 capsule EVERY AM 1 capsule EVERY AM (route: oral) Med Classific ation: Central Nervous System Agents gabapentin 300 mg capsule 03-27 00:00: 00 Yes [id number] 1 capsule BEDTIME 1 capsule BEDTIME (route: oral) Med Classific ation: Central Nervous System Agents Heparin Lock Flush (Porcine) (PF) 10 unit/mL intravenous syringe 03-27 00:00: 00 Yes [id number] 5 mL DIRECTED 5 mL DIRECTED (route: intravenou s) Med Classific ation: Hematolog ical Agents ipratropium bromide 42 mcg (0.06 %) nasal spray 03-27 00:00: 00 Yes [id number] 2 spray 3 TIMES DAILY 2 spray 3 TIMES DAILY (route: nasal) Med Classific ation: Respirato ry Therapy Agents Linzess 72 mcg capsule 03-27 00:00: 00 Yes [id number] 1 capsule DAILY 1 capsule DAILY (route: oral) Med Classific ation: Gastroint estinal Therapy Agents montelukast 10 mg tablet 03-27 00:00: 00 Yes [id number] 1 tablet BEDTIME 1 tablet BEDTIME (route: oral) Med Classific ation: Respirato ry Therapy Agents Multaq 400 mg tablet 03-27 00:00: 00 Yes [id number] 1 tablet 2 TIMES DAILY 1 tablet 2 TIMES DAILY (route: oral) Med Classific ation: Cardiovas cular Therapy Agents Normal Saline Flush 0.9 % injection syringe 03-27 00:00: 00 Yes [id number] 10-20 mL DIRECTED 10-20 mL DIRECTED (route: injection) Med Classific ation: Electroly te Balance-N utritiona l Products omeprazole 40 mg capsule,del ayed release 03-27 00:00: 00 Yes [id number] 1 capsule DAILY 1 capsule DAILY (route: oral) Med Classific ation: Gastroint estinal Therapy Agents oxycodone 5 mg tablet 03-27 00:00: 00 Yes [id number] 1 tablet EVERY 4 HOURS 1 tablet EVERY 4 HOURS (route: oral) Med Classific ation: Analgesic , Anti-infl ammatory or Antipyret ic potassium chloride ER 10 mEq capsule,ext ended release 03-27 00:00: 00 Yes [id number] 1 capsule DAILY 1 capsule DAILY (route: oral) Med Classific ation: Electroly te Balance-N utritiona l Products ropinirole 1 mg tablet 03-27 00:00: 00 Yes [id number] 2 tablet BEDTIME 2 tablet BEDTIME (route: oral) Med Classific ation: Central Nervous System Agents rosuvastati n 10 mg tablet 03-27 00:00: 00 Yes [id number] 1 tablet BEDTIME 1 tablet BEDTIME (route: oral) Med Classific ation: Cardiovas cular Therapy Agents Senna Plus 8.6 mg-50 mg capsule 03-27 00:00: 00 Yes [id number] 2 capsule 2 TIMES DAILY 2 capsule 2 TIMES DAILY (route: oral) Med Classific ation: Gastroint estinal Therapy Agents tramadol 50 mg tablet 03-27 00:00: 00 Yes [id number] 2 tablet EVERY 6 HOURS 2 tablet EVERY 6 HOURS (route: oral) Med Classific ation: Analgesic , Anti-infl ammatory or Antipyret ic Trelegy Ellipta 200 mcg-62.5 mcg-25 mcg powder for inhalation 03-27 00:00: 00 Yes [id number] 1 inhalat ion DAILY 1 inhalation DAILY (route: inhalation ) Med Classific ation: Respirato ry Therapy Agents triamcinolo ne acetonide 0.1 % topical cream 03-27 00:00: 00 Yes [id number] 1 cm DAILY 1 cm RENE Y (route: topical) Med Classific ation: Dermatolo gical Tylenol Extra Strength 500 mg tablet 03-27 00:00: 00 Yes [id number] 1 tablet 3 TIMES DAILY 1 tablet 3 TIMES DAILY (route: oral) Med Classific ation: Analgesic , Anti-infl ammatory or Antipyret ic Vitamin B-12 1,000 mcg tablet 03-27 00:00: 00 Yes [id number] 2 tablet DAILY 2 tablet DAILY (route: oral) Med Classific ation: Electroly te Balance-N utritiona l Products Vitamin D3 25 mcg (1,000 unit) capsule 03-27 00:00: 00 Yes [id number] 1 capsule DAILY 1 capsule DAILY (route: oral) Med Classific ation: Electroly te Balance-N utritiona l Products Wellbutrin XL 300 mg 24 hr tablet, extended release 03-27 00:00: 00 Yes [id number] 1 tablet DAILY 1 tablet DAILY (route: [...] FROM THE FOLLOWING PHYSICIANS: DR MARGOT SANTIZO [facility], WIRE FRAME MAKER/TREATING PROVIDERS [code = HOME HEALTH AGENCY MAY ACCEPT ORDERS FROM THE FOLLOWING PHYSICIANS: DR MARGOT SANTIZO [facility], WIRE FRAME MAKER/TREATING PROVIDERS] Future Scheduled Test OCCUPATION AL THERAPIST [...] RESULTS AND FAX TO DR MARGOT SANTIZO, [facility] [phone] AND [facility] [phone]. [code = SKILLED NURSE TO OBTAIN BLOOD SPECIMEN VIA VENIPUNCTURE AND/OR CENTRAL LINE FOR CBC WITH DIFF, CMP, AND CPK WEEKLY ON TUESDAYS. OBTAIN CPK AGAIN WEEKLY ON THURSDAYS OR FRIDAYS. AT WEEK 3 6 (WEEK OF 03/29/25 AND 04/19/25), OBTAIN ESR AND CRP. DIAGNOSIS INFECTION/INFLAMMATION D/T RIGHT KNEE PROSTHESIS T84.53XA. OBTAIN LAB RESULTS AND FAX TO DR MARGOT SANTIZO, [facility] [phone] AND [facility] [phone].] Future Scheduled Test SKILLED NU RSE FOR [...] MAINTAIN SITUATIONAL AWARENESS AND WILL NOTIFY CLINICAL PROCESSING LEAD AND PHYSICIAN/PROVIDER WITH ANY CHANGE IN CONDITION. [...] MAINTAIN SITUATIONAL AWARENESS AND WILL NOTIFY CLINICAL PROCESSING LEAD AND PHYSICIAN/PROVIDER WITH ANY CHANGE IN CONDITION. [...] CARE WILL BE ESTABLISHED THAT MEETS PATIENT'S ASSISTED NEEDS AND INCLUDES PATIENT GOAL FOR HOME [...] End Date/Time Encounter Type Admission Type Attending [facility] Care Department Encounter ID Discharge Date Discharge Status Discharge Condition Discharge Reason Percent Goals Met 2025-03-27 00:00:00 2025-05-25 00:00:00 Outpatient NEW ADMISSION BOGDAN CANSECO [facility] [id number] 69.44
--- OUTSIDE RECORDS SUMMARY | 2025-04-17 07:56 | XMS_ITS | Encounter Summary ---
Author Organization [employer] Address [address] [place] [address] Care Team Providers Care Knitting Teacher Name Role Phone Mt Cortes MD Primary Care Provider [phone] Encounter Details Date Type Department Care Team (Late st Contact Info) Description 08/23/2002 Outpatient [facility] [address] [place] [address] [address]. 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
--- OUTSIDE RECORDS SUMMARY | 2025-04-17 07:56 | XMS_ITS | Encounter Summary ---
Author Organization [employer] Address [address] [place] [address] Care Team Providers Care Carriage Dogger Name Role Phone Mt Cortes MD Primary Care Provider [phone] Encounter Details Date Type Department Care Team (Late st Contact Info) Description 08/05/2002 Outpatient [facility] [address] [place] [address] 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
--- OUTSIDE RECORDS SUMMARY | 2025-04-17 07:56 | XMS_ITS | Encounter Summary ---
Author Organization [facility] Address [facility] [place] [address] Care Team Providers Care Restaurant Associate Name Role Phone Cirilo Juarez MD Primary Care Provider [phone] Encounter Details Date Type Department Care Team (Latest Contact Info) Description 03/25/2025 Results Follow-Up [facility] [address] [place] [address] [place] [address] [place] [address] CK (CPK), CBC W/DIFF AUTOMATED, [...] - 03/25/2025 11:33 AM CDT Pt at [facility]. Results faxed there. * Cirilo Juarez MD - 03/25/2025 10:19 AM CDT H/H is low as is renal function with normal electrolytes recommend repeat H/H, bmp in one week documented in this encounter Plan of Treatment Not on file documented as of this encounter Visit Diagnoses Not on filedocumented in this encounter Care Teams Restaurant Associate Relationship Specialty [place] [address] [place] [address] PCP - General FAMILY PRACTICE 03/23/25 documented as of this encounter
--- OUTSIDE RECORDS SUMMARY | 2025-04-17 07:56 | XMS_ITS | Encounter Summary ---
Author Organization [employer] Address 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
--- OUTSIDE RECORDS SUMMARY | 2025-04-17 07:57 | XMS_ITS | Encounter Summary ---
Author Organization [employer] Address [address] [place] [address] Care Team Providers Care Sweeper Cleaner Industrial Name Role Phone Mt Cortes MD Primary Care Provider [phone] Encounter Details Date Type Department Care Team (Latest Contact Info) Description 06/27/2004 Outpatient [facility] [address] [place] [address] [place] [address] Mt Cortes MD [address] [place] [address] DYSPHAGIA (Primary Dx) Social History Tobacco Use Types Packs/Day Years Used Date Smoking Tobacco: Never Assessed Comments Unknown Sex and Gender Information Value Date Recorded Sex Assigned at Not on file 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
--- OUTSIDE RECORDS SUMMARY | 2025-04-17 07:57 | XMS_ITS | Encounter Summary ---
Author Organization [employer] Address [address] [place] [address] Care Team Providers Care Golf Cart Attendant Name Role Phone Mt Cortes MD Primary Care Provider [phone] Encounter Details Date Type Department Care Team (Late st Contact Info) Description 03/18/2003 Outpatient Historical [facility] [address] [place] [address] Mt Cortes MD [address] [place] [address] Social History Tobacco Use Types Packs/Day Years Used Date Smoking Tobacco: Never Assessed Comments Unknown Sex and Gender Information Value Date Recorded Sex Assigned at Not on file 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
--- OUTSIDE RECORDS SUMMARY | 2025-04-17 07:57 | XMS_ITS | Encounter Summary ---
Author Organization [employer] Address [address] [place] [address] Care Team Providers Care Head Boys Golf Coach Name Role Phone Mt Cortes MD Primary Care Provider [phone] Encounter Details Date Type Department Care Team (Late st Contact Info) Description 02/18/2003 Outpatient Historical [facility] Internal Medicine [address] [place] [address] Mt Cortes MD [address] [place] [address] Social History Tobacco Use Types Packs/Day Years Used Date Smoking Tobacco: Never Assessed Comments Unknown Sex and Gender Information Value Date Recorded Sex Assigned at Not on file 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
--- OUTSIDE RECORDS SUMMARY | 2025-04-17 07:57 | XMS_ITS | Encounter Summary ---
Author Organization [employer] Address 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
--- OUTSIDE RECORDS SUMMARY | 2025-04-17 07:57 | XMS_ITS | Encounter Summary ---
Author Organization [employer] Address [address] [place] [address] Care Team Providers Care Lead Quality Technician Name Role Phone Mt Cortes MD Primary Care Provider [phone] Encounter Details Date Type Department Care Team (Late st Contact Info) Description 01/09/2005 Outpatient [facility] [address] [place] [address] 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
--- OUTSIDE RECORDS SUMMARY | 2025-04-17 07:57 | XMS_ITS | Clinical Summary ---
Author Organization [facility] Address [facility] [place] [address] Care Team Providers Care Administrative Assistant Name Role Phone Cirilo Juarez MD Primary Care Provider Allergies Active Allergy Reactions Criticality Noted Date Comments Penicillins Itching,Rash Medium 2025 Medications albuterol (PROVENTIL) (2.5 MG/3ML) 0.083% nebulizer solution Inhale 3 mLs (2.5 mg total) into the lungs. 5 Active ELIQUIS 5 MG tablet Take 1 tablet (5 mg total) by mouth 2 (two) times daily. 5 Active azelastine (ASTELIN) 0.1 % nasal spray 1 spray by Nasal route. Active benzocaine-ment hol (CHLORASEPTIC) 6-10 MG Lozenge Take 1 lozenge by mouth. 5 Active buPROPion XL (WELLBUTRIN XL) 300 MG 24 hr tablet Take 1 tablet (300 mg total) by mouth daily. 5 Active cetirizine (ZYRTEC) 10 MG tablet Take 1 tablet (10 mg total) by mouth daily. Active DAPTOmycin (CUBICIN) Inject 12 mLs (600 mg total) into the vein daily. 5 Active dilTIAZem ER 180 MG 24 hr capsule Take 1 capsule (180 mg total) by mouth 2 (two) times daily. 4 Active MULTAQ 400 MG tablet Take 1 tablet (400 mg total) by mouth 2 (two) times daily. 5 Active vitamin D2, ergocalciferol, (DRISDOL) 1.25 mg capsule Take 1 capsule (1.25 mg total) by mouth once a week. 5 Active escitalopram (LEXAPRO) 20 MG tablet Take 1 tablet (20 mg total) by mouth daily. 5 Active ezetimibe (ZETIA) 10 MG tablet Take 1 tablet (10 mg total) by mouth daily. 5 Active fluticasone furoate-vilante rol (BREO ELLIPTA) 100-25 MCG/ACT inhaler daily. Acti ve fluticasone propionate (FLONASE) 50 MCG/ACT nasal spray 1 spray by Nasal route daily. 4 Active TRELEGY ELLIPTA 200-62.5-25 MCG/ACT AEROSOL POWDER, BREATH ACTIVATED Inhale 1 puff into the lungs daily. Active furosemide (LASIX) 20 MG tablet Take 1 tablet (20 mg total) by mouth 2 (two) times daily. 4 Active gabapentin (NEURONTIN) 100 MG capsule TAKE 1 CAPSULE BY MOUTH IN THE MORNING AND 3 CAPSULES BY MOUTH AT BEDTIME 5 Active heparin lock flush 10 UNIT/ML injection 2-5 mLs (20-50 Units total) by Other route. 5 Active HYDROcodone-shahnaz taminophen (NORCO) 5-325 MG tablet TAKE 1 TABLET EVERY 4-6 HOURS NEEDED 4 Active ipratropium (ATROVENT) 0.06 % nasal spray every 8 (eight) hours. 4 Active LINZESS 72 MCG capsule Take 1 capsule (72 mcg total) by mouth daily. 5 Active metoprolol tartrate (LOPRESSOR) 25 MG tablet Take 1 tablet (25 mg total) by mouth 2 (two) times daily. 4 Active montelukast (SINGULAIR) 10 MG tablet take 1 tablet by mouth every day for 90 days Active ZEPBOUND 5 MG/0.5ML injection Inject 5 mg into the skin once a week. 5 Active senna-docusate (SENOKOT-S) 8.6-50 MG tablet Take 2 tablets by mouth 2 (two) times daily. 5 Active rosuvastatin (CRESTOR) 10 MG tablet daily. Active rOPINIRole (REQUIP) 1 MG tablet Take 2 tablets (2 mg total) by mouth. 5 Active omeprazole (PRILOSEC) 10 MG capsule daily. Active cyclobenzaprine (FLEXERIL) 10 MG tablet Take 1 tablet (10 mg total) by mouth. 04/15/20 25 Active Problems Problem Noted Date Diagnosed Date Staphylococcal arthritis of right knee ([facility]) 03/28/2025 PAF (paroxysmal atrial fibrillation) ([facility] HH S/[facility]) 03/28/2025 Gastroesophageal reflux disease without esophagi tis 03/28/2025 Encounters Date Type Department Care Team Description 04/10/2025 4:59 PM CDT - 04/10/2025 11:59 PM CDT Hospital Encounter [facility] [address] [place] [address] Alysia Machado MD Discharge Disposition: Home or Self Care (Routine Discharge) 04/10/2025 Orders Only [facility] [address] [place] [address] Alysia Machado MD 03/31/2025 3:26 PM CDT - 03/31/2025 11:59 PM CDT Hospital Encounter [facility] [address] [place] [address] Alysia Machado MD Discharge Disposition: Home or Self Care (Routine Discharge) 03/31/2025 Orders Only [facility] [address] [place] [address] Alysia Machado MD 03/31/2025 Orders Only [facility] [address] [place] [address] Alysia Machado MD 03/25/2025 9:25 AM CDT - 03/25/2025 11:59 PM CDT Hospital Encounter [facility] [address] [place] [address] Cirilo Juarez MD Discharge Disposition: Home or Self Care (Routine Discharge) 03/25/2025 Results Follow-Up [facility] [address] [place] [address] Cirilo Juarez MD CK (CPK), CBC W/DIFF AUTOMATED, COMPREHENSIVE METABOLIC PANEL 03/25/2025 Orders Only [facility] [address] [place] [address] Cirilo Juarez MD 2025 3:40 PM CDT Assisted [facility] [address] [place] [address] Cirilo Juarez MD Assisted ([facility] ) 03/16/2025 Telephone [facility] [address] [place] [address] Mary Conner, garment mender (Swing bed referral to [facility] from [facility]/) from Last 3 Months Immunizations Immunization Administration [...] PCV21) 02/15/2024 02/14/2019, 08/07/2016, 05/19/2014 PHQ-2 (Physician [place]) 09/24/2024 COVID-19 Vaccine ( season) 2024 06/26/2024, [...] - 20 MM/HR 04/10/2025 5:28 PM CDT [facility] 04/10/2025 2:15 PM CDT [facility] F inal Result [facility] [address] [place] [place] [address], * (ABNORMAL) COMPREHENSIVE METABOLIC PANEL (04/10/2025 2:15 PM CDT) Only the most recent of3 resultswithin the time period is included. SODIUM S/P/B 140 136 - 145 MMOL/L 04/10/2025 5:24 PM CDT [facility] POTASSIUM S/P/B 3.0(L) 3.5 - 5.1 MMOL/L 04/10/2025 5:24 PM CDT [facility] CHLORIDE S/P/B 102 98 - 107 MMOL/L 04/10/2025 5:24 PM CDT [facility] CO2 28.5 21.0 - 32.0 MMOL/L 04/10/2025 5:24 PM CDT [facility] GLUCOSE 176(H) 70 - 99 MG/DL 04/10/2025 5:24 PM CDT [facility] Comment: FASTING GLUCOSE 100 TO 125 MG/DL IS CONSISTENT WITH IMPAIRED FASTING GLUCOSE. FASTING GLUCOSE >125 MG/DL IS CONSISTENT WITH DIABETES. RANDOM GLUCOSE >200 MG/DL WITH HYPERGLYCEMIC SYMPTOMS IS CONSISTENT WITH DIABETES. PER ADA GUIDELINES BUN 15 6 - 24 MG/DL 04/10/2025 5:24 PM CDT [facility] CREATININE S/P/B 1.11(H) 0.55 - 1.02 MG/DL 04/10/2025 5:24 PM CDT [facility] CALCIUM S/P/B 8.3(L) 8.4 - 10.5 MG/DL 04/10/2025 5:24 PM CDT [facility] BILIRUBIN TOTAL S/P/B 0.3 0.2 - 1.0 MG/DL 04/10/2025 5:24 PM T [facility] Comment: THIS ASSAY IS NOT RECOMMENDED FOR PATIENTS UNDERGOING TREATMENT WITH ELTROMBOPAG DUE TO THE POTENTIAL FOR FALSELY ELEVATED RESULTS. ALKALINE PHOSPHATASE S/P/B 123 55 - 142 U/L 04/10/2025 5:24 PM T [facility] AST 17 15 - 37 U/L 04/10/2025 5:24 PM T [facility] ALT 21 14 - 59 U/L 04/10/2025 5:24 PM T [facility] TOTAL PROTEIN S/P/B 6.9 6.4 - 8.2 G/DL 04/10/2025 5:24 PM T [facility] ALBUMIN S/P/B 3.1(L) 3.4 - 5.0 G/DL 04/10/2025 5:24 PM T [facility] ANION GAP 9.5 5.0 - 15.0 MMOL/L 04/10/2025 5:24 PM T [facility] OSMOLALITY (CALC) 295 MOSM/KG 025 5:24 PM T [facility] Comment:REFERENCE RANGE NOT ESTABLISHED GFR ESTIMATE 52(L) >89 ML/MIN/1. 73 M2 04/10/2025 5:24 PM T [facility] GFR NOTES GFR REFERENCE S: 04/10/2025 5:24 PM T [facility] Comment: THE ESTIMATED GFR IS CALCULATED [...] <15 ml/min/1.73 m2 04/10/2025 2:15 PM CDT [facility] F inal Result Performing Organization Address [facility] Co de Phone Number [facility] [address] [place] [address], * (ABNORMAL) C-REACTIVE PROTEIN (04/10/2025 2:15 PM CDT) Only the most recent of2 resultswithin the time period is included. C-REACTIVE PROTEIN 0.47(H) <0.30 mg/dL 04/10/2025 5:24 PM CDT [facility] 04/10/2025 2:15 PM CDT [facility]ie [facility] F inal Result Performing Organization Address [facility] de Phone Number [facility] [address] [place] [address], * (ABNORMAL) CBC W/DIFF AUTOMATED (04/10/2025 2:15 PM CDT) Only the most recent of3 resultswithin the time period is included. WBC 6.22 4.00 - 10.80 x10'3/uL 04/10/2025 5:07 PM CDT [facility] RBC 2.80(L) 4.10 - 5.40 x10'6/uL 04/10/2025 5:07 PM CDT [facility] HGB 7.3(L) 12.0 - 16.0 G/DL 04/10/2025 5:07 PM CDT [facility] HCT 23.7(L) 36.0 - 47.0 % 04/10/2025 5:07 PM CDT [facility] MCV 84.6 78.0 - 100.0 FL 04/10/2025 5:07 PM CDT [facility] MCH 26.1(L) 27.0 - 31.0 PG 04/10/2025 5:07 PM CDT [facility] MCHC 30.8(L) 33.0 - 36.0 G/DL 04/10/2025 5:07 PM CDT [facility] RDW 16.0(H) 11.5 - 14.5 % 04/10/2025 5:07 PM CDT [facility] PLT 259 150 - 350 x10'3/uL 04/10/2025 5:07 PM CDT [facility] MPV 10.1 7.4 - 10.4 FL 04/10/2025 5:07 PM CDT [facility] CBC COMMENT NORMAL REFERENCE RANGE NOT ESTABLISHED FOR THE PROPORTIONAL LEUKOCYTE DIFFERENTIAL. 04/10/2025 5:07 PM CDT [facility] NEUTROPHILS % 50.2 % 04/10/2025 5:07 PM CDT [facility] LYMPHOCYTES % 34.1 % 04/10/2025 5:07 PM CDT [facility] MONOCYTES % 9.0 % 04/10/2025 5:07 PM CDT [facility] EOSINOPHILS % 5.0 % 04/10/2025 5:07 PM CDT [facility] BASOPHILS % 1.4 % 04/10/2025 5:07 PM CDT [facility] IMMATURE GRANS % 0.3 % 04/10/20 5:07 PM CDT [facility] NRBC % 0.0 % 04/10/2025 5:07 PM CDT [facility] ABS. NEUTROPHILS 3.12 1.60 - 8.30 x10'3/uL 04/10/2025 5:07 PM CDT [facility] ABS. LYMPHOCYTES 2.12 0.80 - 4.70 x10'3/uL 04/10/2025 5:07 PM CDT [facility] ABS. MONOCYTES 0.56 0.00 - 1.50 x10'3/uL 04/10/2025 5:07 PM CDT [facility] ABS. EOSINOPHILS 0.31 0.00 - 0.40 x10'3/uL 04/10/2025 5:07 PM CDT [facility] ABS. BASOPHILS 0.09 0.00 - 0.20 x10'3/uL 04/10/2025 5:07 PM CDT [facility] ABS. IMMATURE GRANULOCYTES 0.02 0.00 - 0.03 x10'3/uL 04/10/2025 5:07 PM CDT [facility] ABS. NUCLEATED RBC'S 0.00 0.00 - 0.01 x10'3/uL 04/10/2025 5:07 PM CDT [facility] 04/10/2025 2:15 PM CDT Alysia Amador MD LABORATORY F inal Result [address] [place] [address], * CK (CPK) (04/10/2025 2:15 PM CDT) Only the most recent of3 resultswithin the time period is included. CPK 113 26 - 192 U/L 04/10/2025 5:24 PM CDT [facility] 04/10/2025 2:15 PM CDT Alysia Amador MD LABORATORY F inal Result [facility] [address] [place] [address], from Last 3 Months Insurance MEDICARE [facility] Care Teams Administrative Assistant Relationship Specialty [place] [address] [place] [address] PCP - General FAMILY PRACTICE 03/23/25
--- OUTSIDE RECORDS SUMMARY | 2025-04-17 07:57 | XMS_ITS | Encounter Summary ---
Author Organization [employer] Address 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
--- OUTSIDE RECORDS SUMMARY | 2025-04-17 07:57 | XMS_ITS | Encounter Summary ---
Author Organization [employer] Address 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
--- OUTSIDE RECORDS SUMMARY | 2025-04-17 07:57 | XMS_ITS | Encounter Summary ---
Author Organization [employer] Address [address] [place] [address] Care Team Providers Care Assistant Banquet Manager Name Role Phone Mt Cortes MD Primary Care Provider [phone] Encounter Details Date Type Department Care Team (Late st Contact Info) Description 06/27/2004 Outpatient Historical [facility] Internal Medicine [address] [place] [address] Mt Cortes MD [address] [place] [address] Social History Tobacco Use Types Packs/Day Years Used Date Smoking Tobacco: Never Assessed Comments Unknown Sex and Gender Information Value Date Recorded Sex Assigned at Not on file 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
--- OUTSIDE RECORDS SUMMARY | 2025-04-17 07:57 | XMS_ITS | Encounter Summary ---
Author Organization [employer] Address [address] [place] [address] Care Team Providers Care Hogshead Weigher Name Role Phone Mt Cortes MD Primary Care Provider [phone] Encounter Details Date Type Department Care Team (Late st Contact Info) Description 01/23/2003 Outpatient Historical [facility] Internal Medicine [address] [place] [address] Mt Cortes MD [address] [place] [address] Social History Tobacco Use Types Packs/Day Years Used Date Smoking Tobacco: Never Assessed Comments Unknown Sex and Gender Information Value Date Recorded Sex Assigned at Not on file 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
--- OUTSIDE RECORDS SUMMARY | 2025-04-17 07:57 | XMS_ITS | Clinical Summary ---
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
--- OUTSIDE RECORDS SUMMARY | 2025-04-17 07:57 | XMS_ITS | Encounter Summary ---
Author Organization [employer] Address 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
--- OUTSIDE RECORDS SUMMARY | 2025-04-17 07:57 | XMS_ITS | Encounter Summary ---
Author Organization [employer] Address [address] [place] [address] Care Team Providers Care Hvac Service Tech Name Role Phone Mt Cortes MD Primary Care Provider [phone] Encounter Details Date Type Department Care Team (Late st Contact Info) Description 10/13/2005 [facility] [address] [place] [address] Mt Cortes MD [address] [facility] [address] [place] [address] Social History Tobacco Use Types Packs/Day Years Used Date Smoking Tobacco: Never Assessed Comments Unknown Sex and Gender Information Value Date Recorded Sex Assigned at Not on file 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 WHO CALLED: Pharmacy called. PHARMACY NUMBER: [phone] SECTION 1: REQUESTED ACTION ashley 10/13/05 at [...] on filedocumented in this encounter Care Teams Hvac Service Tech Relationship Specialty Start Date End Date Mt Cortes MD [address] [facility] [address] [place] [address] PCP - General 05/19/03 09/20/17 documented as of this encounter
--- OUTSIDE RECORDS SUMMARY | 2025-04-17 07:57 | XMS_ITS | Patient Health Record ---
Author Organization [facility] [place] ([address]) Address [address] [place] [address] Care Team Providers Care Director Of Community Education Name Role Phone Marta Mayer Primary Care Provider Unavailab Rachana Cummings Unavailable [phone] Hipolito Aguilar MD Unavailable Unavailable Allergies Allergen (clinical drug ingredient) Drug/Non Drug Allergy documented on EMR Reaction Allergy Type Onset Date Status amoxicillin Amoxicillin rash Drug Allergy Act vivi Penicillin rash Drug Allergy Active Results Component Value Reference Range Notes Spirometry Reviewed date: Interpretation:Abnormal Performing Lab: Notes/Report: Abnormal SpiroPreBronchodilator_FVC 2.22 SpiroPostBronchodilator_FEF25_75 0 SpiroPreBronchodilator_FEF25_75 2.48 SpiroPreBronchodilator_FEV1 1.85 SpiroPrecentPredictionPost_FEF25_75 0 SpiroPrecentPredictionPost_FEV1 0 SpiroPrecentPredictionPost_FEV1_OVER_FVC 0 SpiroPrecentPredictionPost_FVC 0 SpiroPrecentPredictionPre_FEF25_75 129.8 SpiroPrecentPredictionPre_FEV1 83 SpiroPrecentPredictionPre_FEV1_OVER_FVC 111.3 SpiroPrecentPredictionPre_FVC 75 SpiroPredicted_FEF25_75 1.91 SpiroPreBronchodilator_FEV1_OVER_FVC 83.58 SpiroPreBronchodilator_PEF 4.44 SpiroPostBronchodilator_FVC 0 SpiroPostBronchodilator_FEV1 0 SpiroPostBronchodilator_FEV1_OVER_FVC 0 SpiroPostBronchodilator_PEF 0 SpiroPredicted_FVC 2.96 SpiroPredicted_FEV1 2.23 SpiroPredicted_FEV1_OVER_FVC 75.09 SpiroPredicted_PEF 5.55 Spirometry Reviewed date: Interpretation:Normal Performing Lab: Notes/Report: [...] e-prescription and drug interaction check* Not-Taking Ipratropium [place] 0.06 % 2 sprays in each nostril [...] review and pick correct strength-formulat ion from [employer] options. If intended option is not shown, [...] Vaccine Route Administration Date Status Comme nts NOC Pneumovax 23 Unknown 01/02/2018 Refused Influenza Unknown 07/09/2018 Administered Fluzone Quadrivalent Unknown 07/25/2017 Administered Social History Tobacco Use: Social History Observation Description Date Details (start date - stop date) Never Smoker NA - NA Smoking Smart Form: Question Answer Notes Are you a: never smoker Tobacco Control (Standard) Question Answer Notes Tobacco use: Nonsmoker Problems Problem Type SNOMED Code ICD Code Onset Dates Problem Status W/U Status Risk Notes Problem Allergy to penicillin (78728310) Allergy status to penicillin (Z88.0) Active confirmed Problem Eruption of skin (699758449) Rash and other nonspecific skin eruption (R21) Active confirmed Problem Chronic allergic conjunctivitis (31517056) Other chronic allergic conjunctivitis (H10.45) Active confirmed Problem Allergic rhinitis caused by pollen (disorder) (83595145) Allergic rhinitis due to pollen (J30.1) Active confirmed Problem Allergic rhinitis (14474915) Other allergic rhinitis (J30.89) Active confirmed Problem Chronic rhinitis (64629598) Chronic rhinitis (J31.0) Active confirmed Problem Uncomplicated mild persistent asthma (588070122) Mild persistent asthma, uncomplicated (J45.30) Active confirmed Problem Uncomplicated moderate persistent asthma (545092520) Moderate persistent asthma, uncomplicated (J45.40) Active confirmed Problem Uncomplicated severe persistent asthma (746449243) Severe persistent asthma, uncomplicated (J45.50) Active confirmed Problem Allergic rhinitis caused by animal hair and dander (123673277100686) Allergic rhinitis due to animal (cat) (dog) hair and dander (J30.81) Active confirmed Problem Cough (51170092) Cough (R05) Active confirmed Problem Allergy status t o other antibiotic agents (Z88.1) Active confirmed Vital Signs Oximetry 96 % 06/04/2024 Blood pressure diastolic 78 mm Hg 06/04/2024 Height 65 in 06/04/2024 Blood pressure systolic 127 mm Hg 06/04/2024 Weight 256.2 lbs 06/03/2024 BMI 42.63 kg/m2 06/03/2024 Encounters Encounter Location Date Provider Diagnosis [facility] [address] [address] [facility]/23/2024 Rachana Linder Moderate persistent asthma, uncomplicated J45.40 ; Acute upper respiratory infection, unspecified J06.9 ; Chronic rhinitis J31.0 and Allergy status to other antibiotic agents Z88.1 [facility] [address] [facility] [address] [place] [address] 05/21/2024 Rachana Linder Moderate persistent asthma, uncomplicated J45.40 ; Acute upper respiratory infection, unspecified J06.9 ; Chronic rhinitis J31.0 and Allergy status to other antibiotic agents Z88.1 [facility] [address] [place] [address] 06/03/2024 Rachana Linder Moderate persistent asthma, uncomplicated J45.40 ; Allergy status to penicillin Z88.0 and Chronic rhinitis J31.0 [facility] [address] [place] [address] 06/04/2024 Rachana Linder Moderate persistent asthma, uncomplicated [...] reagents (Pre-Pen and Chinyere) in accordance with registered nurse practitioner's guidelines, and all tests were negative with [...] reagents (Pre-Pen and Chinyere) in accordance with registered nurse practitioner's guidelines, and all tests were negative with [...] Insured Coverage Start Date Coverage End Date [employer] (Medicare) Attention Claims [address] [place] [address] [phone] [id number] Sanjeev spencer Robyn Self - patient is the insured [employer] [address] [address] [place] [id number] Sanjeev spencer Robyn Self - patient is [...]
--- OUTSIDE RECORDS SUMMARY | 2025-04-17 07:57 | XMS_ITS | Encounter Summary ---
Author Organization [employer] Address [address] [place] [address] Care Team Providers Care Jig Borer Name Role Phone Mt Cortes MD Primary Care Provider [phone] Encounter Details Date Type Department Care Team (Latest Contact Info) Description 11/18/2003 Outpatient Historical [facility] Mt Cortes MD [address] [place] [address] ABDOMINAL PAIN RUQ (Primary Dx) Social History Tobacco Use Types Packs/Day Years Used Date Smoking Tobacco: Never Assessed Comments Unknown Sex and Gender Information Value Date Recorded Sex Assigned at Not on file Legal Sex Female 2:41 AM SECTION GANG Gender Identity Not on file Sexual Orientation Not on file documented as of this encounter Plan of Treatment Not on file documented as of this encounter Visit Diagnoses Diagnosis Abdominal pain, right upper quadrant- Primary documented in this encounter Care Teams Jig Borer Relationship Specialty Start Date End Date Mt Cortes MD [address] [place] [address] PCP - General 05/19/03 09/20/17 documented as of this encounter
--- OUTSIDE RECORDS SUMMARY | 2025-04-17 07:57 | XMS_ITS | Encounter Summary ---
Author Organization [employer] Address 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
--- OUTSIDE RECORDS SUMMARY | 2025-04-17 07:57 | XMS_ITS | Encounter Summary ---
Author Organization [employer] Address 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
--- OUTSIDE RECORDS SUMMARY | 2025-04-17 07:57 | XMS_ITS | Encounter Summary ---
Author Organization [employer] Address [address] [place] [address] Care Team Providers Care Artist Scientific Name Role Phone Mt Cortes MD Primary Care Provider [phone] Encounter Details Date Type Department Care Team (Late st Contact Info) Description 05/19/2003 Outpatient Historical [facility] Internal Medicine [address] [place] [address] Mt Cortes MD [address] [place] [address] Social History Tobacco Use Types Packs/Day Years Used Date Smoking Tobacco: Never Assessed Comments Unknown Sex and Gender Information Value Date Recorded Sex Assigned at Not on file 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
--- OUTSIDE RECORDS SUMMARY | 2025-04-17 07:57 | XMS_ITS | Encounter Summary ---
Author Organization [employer] Address [address] [place] [address] Care Team Providers Care Lan Manager Name Role Phone Mt Cortes MD Primary Care Provider [phone] Encounter Details Date Type Department Care Team (Late st Contact Info) Description 08/23/2004 Outpatient [facility] [address] [place] [address] 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
--- OUTSIDE RECORDS SUMMARY | 2025-04-17 07:57 | XMS_ITS | Encounter Summary ---
Author Organization [employer] Address 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
--- OUTSIDE RECORDS SUMMARY | 2025-04-17 07:57 | XMS_ITS | Encounter Summary ---
Author Organization [employer] Address [address] [place] [address] Care Team Providers Care Software Sales Consultant Name Role Phone Mt Cortes MD Primary Care Provider [phone] Encounter Details Date Type Department Care Team (Late st Contact Info) Description 10/23/2005 Outpatient [facility] [address] 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
--- OUTSIDE RECORDS SUMMARY | 2025-04-17 07:57 | XMS_ITS | Encounter Summary ---
Author Organization [employer] Address [address] [place] [address] Care Team Providers Care Waste Recycler Name Role Phone Mt Cortes MD Primary Care Provider [phone] Encounter Details Date Type Department Care Team (Latest Contact Info) Description 05/19/2003 Outpatient [facility] [address] [facility] [address] [place] [address] Mt Cortes MD [address] [place] [address] PURE HYPERCHOLESTEROLEM (Primary Dx) Social History Tobacco Use Types Packs/Day Years Used Date Smoking Tobacco: Never Assessed Comments Unknown Sex and Gender Information Value Date Recorded Sex Assigned at Not on file Legal 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
--- OUTSIDE RECORDS SUMMARY | 2025-04-17 07:57 | XMS_ITS | Encounter Summary ---
Author Organization [employer] Address [address] [place] [address] Care Team Providers Care Real Estate Professor Name Role Phone Mt Cortes MD Primary Care Provider [phone] Encounter Details Date Type Department Care Team (Late st Contact Info) Description 06/20/2005 Outpatient Historical [facility] Internal Medicine [address] [place] [address] Mt Cortes MD [address] [place] [address] Social History Tobacco Use Types Packs/Day Years Used Date Smoking Tobacco: Never Assessed Comments Unknown Sex and Gender Information Value Date Recorded Sex Assigned at Not on file Legal Sex Female 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
--- OUTSIDE RECORDS SUMMARY | 2025-04-17 07:57 | XMS_ITS | Encounter Summary ---
Author Organization [employer] Address [address] [place] [address] Care Team Providers Care Swimming Coach Or Instructor Name Role Phone Mt Cortes MD Primary Care Provider [phone] Encounter Details Date Type Department Care Team (Late st Contact Info) Description 10/14/2003 Outpatient Historical [facility] Internal Medicine [address] [place] [address] Mt Cortes MD [address] [place] [address] Social History Tobacco Use Types Packs/Day Years Used Date Smoking Tobacco: Never Assessed Comments Unknown Sex and Gender Information Value Date Recorded Sex Assigned at Not on file Legal 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
--- OUTSIDE RECORDS SUMMARY | 2025-04-17 07:57 | XMS_ITS | Encounter Summary ---
Author Organization [employer] Address 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
--- OUTSIDE RECORDS SUMMARY | 2025-04-17 07:57 | XMS_ITS | Encounter Summary ---
Author Organization [employer] Address [address] [place] [address] Care Team Providers Care Inseamer Name Role Phone Mt Cortes MD Primary Care Provider Encounter Details Date Type Department Care Team (Late st Contact Info) Description 10/07/2003 Outpatient Historical [facility] [address] 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
[2025-04-17 08:24] LABS: CRP < 0.5 mg/dL (<1.0); Creatine Kinase 72 U/L (30-135)
== END 2025-04-17 07:49 | disposition home or self-care (01) ==
LOC: CHSLAB 07:54
PROVIDERS: PCP Physician Assistant
DX: T84.53XA Infection and inflammatory reaction due to internal right knee prosthesis, initial encounter (principal)
CPT/HCPCS: 36415; 82550; 85652; 86140